=== PATIENT | male | born 1945 | race Caucasian/White ===

== ENCOUNTER 2016-04-01 08:45 | Day surgery (SDC) | payer MEDICARE ==
[2016-04-01] MEDS ORDERED: ALPRAZolam 0.25 MG TAB PO ONE (09:05)
[2016-04-01 09:13] VITALS: RESP 20; TEMP 97.9
[2016-04-01 09:17] LABS: Mean Platelet Volume 8.4
[2016-04-01 09:23] LABS: INR 1.2 (<1.1); Prothrombin Time 11.6 sec (9.0-12.0)
[2016-04-01 09:26] LABS: Glucose,Whole Blood 118 mg/dL (75-99)
--- NOTE | 2016-04-01 11:09 | US ---
Ultrasound-guided transrectal biopsy of the prostate gland. HISTORY: Elevated PSA. Informed consent was obtained and all the patient's questions were answered. Topical Xylocaine gel w as applied to the probe. The prostate gland was localized sonographically and 12 total samples were obtained with 2 samples o btained from each site. An 18-gauge biopsy device was utilized. Sites include right base, left base , right mid gland, left mid gland, right apex and left apex. Samples were sent to pathology further evaluation. The patient was monitored following the biopsy for approximately one hour. At the time of discharge patient's urine was clear and vitals were stable. IMPRESSION: Successful ultrasound guided core biopsy of the prostate gland. Pathology results are pe nding.
[2016-04-01 11:49] VITALS: PULSE 80
[2016-04-01 11:50] VITALS: BP 156/78
== END 2016-04-01 13:32 | disposition home or self-care (01) ==
LOC: RADPROMAIN 08:45
PROVIDERS: ATTEND Family Medicine
DX: R97.20 Elevated prostate specific antigen [PSA] (principal); N42.83 Cyst of prostate
CPT/HCPCS: 36415; 55700; 85049; 85610; 88305

== ENCOUNTER → 2016-10-14 | Outpatient (CLI) | payer MEDICARE ==
--- NOTE | 2016-10-14 10:41 | XR ---
Lumbar spine HISTORY: Pain, R 52 3 views of the lumbar spine No comparisons Is multilevel spondylosis with loss of disc height at the intervertebral levels. Vacuum phenomenon pr esent at the intervertebral levels. Sclerosis present in the posterior elements. There is mild spinal curvature. Lumbar vertebral bodies show preserved height and alignment. Bone mineralization mildly r educed. Atherosclerotic vascular calcifications are present. IMPRESSION: Degenerative disc disease and facet arthropathy.
== END | disposition home or self-care (01) ==
LOC: RADXRMAIN 09:36
PROVIDERS: ATTEND Family Medicine
DX: M51.36 Other intervertebral disc degeneration, lumbar region (principal); M12.88 Other specific arthropathies, not elsewhere classified, other specified site
CPT/HCPCS: 72100

== ENCOUNTER → 2016-11-01 | Outpatient (CLI) | payer MEDICARE ==
[2016-11-01 10:54] LABS: Blood Urea Nitrogen 14 mg/dL (9-20); Non-African American GFR(MDRD) >60 (>60 ml/min/1.73 sqM)
--- NOTE | 2016-11-01 11:41 | CT ---
EXAMINATION TYPE: CT lumbar spine w con DATE OF EXAM: 11/01/2016 COMPARISON: NONE HISTORY: Patient complains of chronic low back pain and bilateral leg numbness when sitting. Contrast: [address] DLP: 416.6 mGycm Automated exposure control for dose reduction was used. CONTRAST: CT scan of the lumbar is performed with IV Contrast, patient injected with 100 mL of Omnipaque 300. Enhanced CT of the lumbar spine was performed. Bone and soft tissue window settings are submitted as well as coronal and sagittal reconstructions. L1-L2: Moderate to severe degenerative disc disease with facet arthropathy. Posterior spondylosis not ed with no canal stenosis. Mild bilateral foraminal encroachment. L2-L3: Severe degenerative disc disease with posterior spondylosis and facet arthropathy. Circumferen tial disc bulging results in mild to moderate effacement of thecal sac. Bilateral foraminal encroachm ent. AP canal stenosis suspected. L3-L4: Severe degenerative disc disease with diffuse disc bulging, facet arthropathy and ligamentum f lavum hypertrophy noted with moderate to severe AP canal stenosis and bilateral foraminal encroachmen t. Ossification of the posterior longitudinal ligament suspected or disc osteophyte complex. L4-L5: Moderate to severe degenerative disc disease with diffuse disc bulging and facet arthropathy. There is mild to moderate canal stenosis and bilateral foraminal encroachment. L5-S1: Vacuum disc and severe degenerative disc disease with disc bulging and hypertrophic change of the facets and ligamentum flavum with moderate to severe bilateral foraminal encroachment and canal s tenosis. IMPRESSION: Multilevel severe degenerative disc disease with disc bulging. Hypertrophic changes result in multile gayle significant canal stenosis and foraminal encroachment. Lucencies along the endplates of the verte bral bodies at multiple levels are likely related to Schmorl's nodes and/or post degenerative. Recomm end follow up MRI with contrast.
== END | disposition home or self-care (01) ==
LOC: RADCTMAIN 10:20
PROVIDERS: ATTEND Family Medicine
DX: M48.06 Spinal stenosis, lumbar region (principal); M51.16 Intervertebral disc disorders with radiculopathy, lumbar region
CPT/HCPCS: 82565; 84520; 72132; 36415; Q9967

== ENCOUNTER → 2017-03-22 | Outpatient (CLI) | payer MEDICARE ==
--- NOTE | 2017-03-22 12:21 | MR ---
EXAMINATION TYPE: MR lumbar spine wo/w con DATE OF EXAM: 03/22/2017 COMPARISON: 11/01/2016 HISTORY: Pain, Stenosis, Mk lower ext tingling and numbness, rt shoulder numbness TECHNIQUE: T1 and T2 axial and sagittal images of the lumbar spine are submitted. Contrast: 9 mL Gadavist FINDINGS: There is no abnormal signal seen within the visualized spinal cord or paraspinal soft tissu es. Multilevel Schmorl's nodes and degenerative disc disease with discogenic marrow changes noted. At T12-L1 there is mild hypertrophic change of the facets. Circumferential disc bulging but no canal stenosis or focal herniation. Neural foramina patent. At L1-2 there is Mild to moderate degenerative disc disease. Degenerative disc disease with diffuse c ircumferential disc bulging and mild bilateral foraminal encroachment. Borderline canal stenosis. At L2-3 there is Moderate to severe degenerative disc disease with broad-based disc protrusion. Disco genic marrow changes are noted with evidence of Schmorl's nodes. There is mild to moderate central st enosis. Hypertrophic change of the facet joints and ligamentum flavum are noted and there is moderate bilateral foraminal encroachment At L3-4 there is severe degenerative disc disease with diffuse disc bulging greater laterally the rig ht. Far lateral broad-based disc protrusion suspected. There is moderate to severe canal stenosis. Th ere is a severe right-sided foraminal encroachment and mild to moderate left foraminal encroachment. Severe facet arthropathy and ligamentum flavum hypertrophy noted. At L4-5 there is moderate degenerative disc disease with diffuse circumferential disc bulging and fac et arthropathy. Mild bilateral foraminal encroachment and moderate degenerative disc disease. Borderl ine central stenosis. At L5-S1 there is degenerative disc disease with diffuse disc bulging and marked facet arthropathy an d ligamentum flavum hypertrophy. Broad-based central disc protrusion results in moderate to severe ca nal stenosis and bilateral severe foraminal encroachment. IMPRESSION: 1. Multilevel moderate to severe degenerative disc disease with multilevel disc bulging or protrusion resulting in multilevel canal stenosis and foraminal encroachment as discussed above. Most marked fi ndings are seen at L3-L4 and L5-S1 as discussed above. EXAMINATION TYPE: MR bullard wo/w con DATE OF EXAM: 03/22/2017 COMPARISON: NONE HISTORY: Pain, Stenosis, Mk lower ext tingling and numbness, rt shoulder numbness TECHNIQUE: T1 sagittal and coronal, T2 sagittal, and gradient echo axial views of the cervical spine are submitted. Contrast: 9 mL Gadavist FINDINGS: The cranial cervical junction is preserved. There is no abnormal signal seen within the sp inal cord or paraspinal soft tissues. At C2-3 there is facet arthropathy and mild degenerative disc disease. No Canal stenosis. At C3-4 there is degenerative disc disease and facet arthropathy with uncovertebral joint hypertrophy resulting in moderate to severe left foraminal encroachment and severe right-sided foraminal encroac hment. There is a right paracentral disc herniation which does result in severe impingement of the ri ght neural foramina and probable contact of the nerve root. No spinal cord contact is seen although t here is moderate effacement of thecal sac. Mild central stenosis. At C4-5 there is degenerative disc disease with facet arthropathy and uncovertebral joint hypertrophy result in moderate bilateral foraminal encroachment. Borderline canal stenosis but no disc herniatio n. At C5-6 there is degenerative disc disease and facet arthropathy. Moderate bilateral foraminal encroa chment and borderline canal stenosis. No focal herniation. At C6-7 there is degenerative disc disease and facet arthropathy greater on the left with mild to mod erate bilateral foraminal encroachment. No canal stenosis or focal herniation At C7-T1 there is no disc herniation or canal stenosis. Neural foramina are patent. IMPRESSION: 1. Multilevel degenerative disc disease with right paracentral and lateral disc herniation C3-C4 res ulting in severe right-sided foraminal encroachment. 2. Hypertrophic changes at multiple levels result in significant bilateral foraminal encroachment and borderline canal stenosis as discussed above.
== END | disposition home or self-care (01) ==
LOC: RADMRIMAIN 09:45
PROVIDERS: ATTEND Neurological Surgery
DX: M48.061 Spinal stenosis, lumbar region without neurogenic claudication (principal); M51.37 Other intervertebral disc degeneration, lumbosacral region; M51.27 Other intervertebral disc displacement, lumbosacral region; M48.02 Spinal stenosis, cervical region; M50.11 Cervical disc disorder with radiculopathy, high cervical region
CPT/HCPCS: 82565; 72156; 72158; 36415; A9581

== ENCOUNTER → 2017-07-25 | Outpatient (CLI) | payer MEDICARE ==
--- NOTE | 2017-07-25 12:05 | XR ---
EXAMINATION TYPE: XR chest 2V DATE OF EXAM: 07/25/2017 COMPARISON: 01/18/2012 TECHNIQUE: PA and lateral views submitted. HISTORY: Preop FINDINGS: The lungs are clear and there is no pneumothorax, pleural effusion, or focal pneumonia. Hypertrophi c and degenerative change of the spine. Postsurgical changes noted. IMPRESSION: 1. No acute process.
== END ==
LOC: RADXRMAIN 11:50
PROVIDERS: ATTEND Neurological Surgery
DX: Z01.818 Encounter for other preprocedural examination (principal); M54.12 Radiculopathy, cervical region
CPT/HCPCS: 71046

== ENCOUNTER → 2018-01-11 | Outpatient (CLI) | payer MEDICARE ==
--- NOTE | 2018-01-11 14:21 | CT ---
EXAMINATION TYPE: CT sinus wo con DATE OF EXAM: 01/11/2018 COMPARISON: HISTORY: Patient complains of chronic sinus pain, pressure, and drainage. CT DLP: 605 mGycm. Automated Exposure Control for Dose Reduction was Utilized. TECHNIQUE: CT scan of the sinuses is performed without contrast, axial images are obtained, coronal r eformatted images are also reviewed. FINDINGS: The paranasal sinuses including the frontal, ethmoid, sphenoid, and maxillary sinuses bila terally are remarkable for mucosal thickening present within the maxillary sinuses and ethmoid air ce lls, inflammatory change also present in the frontal ethmoidal region, small mucus retention cyst cou ld be present. The ostiomeatal complex is patent bilaterally on the coronal images. Yasmine bullosa a re present bilaterally. Visualized portion of mastoid air cells show no abnormal opacification. The globes are intact bilate rally. IMPRESSION: Sinus disease as described.
== END | disposition home or self-care (01) ==
LOC: RADCTMAIN 12:58
PROVIDERS: ATTEND Family Medicine
DX: J34.89 Other specified disorders of nose and nasal sinuses (principal); J32.9 Chronic sinusitis, unspecified
CPT/HCPCS: 70486

== ENCOUNTER → 2018-11-30 | Outpatient (CLI) | payer MEDICARE ==
--- NOTE | 2018-12-02 12:59 | MR ---
EXAMINATION TYPE: MR Prostate wo/w con DATE OF EXAM: 11/30/2018 COMPARISON: Outside prostate ultrasound October 06, 2018 INDICATION: Prostate nodule seen on US PSA: 5.29 ng/ml on September 04, 2018 Recent Biopsy and Date: n/a Pathology Report (If Applicable): n/a no known biopsy. TECHNIQUE: Examination was performed using a 3T MRI without an endorectal coil. Multiparametric imaging was perf ormed with T2 multiplanar sequences, axial diffusion weighted imaging and dynamic contrast enhanced i maging, utilizing 10 mL intravenous Gadavist gadolinium contrast. FINDINGS: Peripheral zone show some areas of indistinct hyperintensity on ADC mapping near the base slightly mo re prominent to the right of midline. No areas of mild to moderate hypointensity or increased signal on diffusion-weighted images identified in the peripheral zone. Transitional zone is enlarged and heterogeneous with circumscribed areas of hypointensity. No areas w ith noncircumscribed or obscured margins are identified. There is no clinically significant cancer identified. PROSTATE VOLUME: 5.4 cm SI x 4.3 cm AP x 4.7 cm LR Vol= 57.14 cc PSA DENSITY: 6.81 ng/ml/cc Overall enlarged prostate gland. Capsule is maintained. The seminal vesicles are felt within normal l imits. No adjacent or suspicious adenopathy. Urinary bladder folds within normal limits without suspicious wall thickening or trabeculation. Wall thickness upper limits of normal. No concerning pelvic fluid collection. No bowel dilatation. Visualized osseous structures are intact. IMPRESSION: A focus of clinically significant cancer is not identified. Highest Assessment Category: 2 MRI Stage: T0 N0 M0 based on review of pelvic images. False negative rates for MRI range from 5-20% depending on risk profile. Assessment Categories: 1 ? Very low (clinically significant cancer is highly unlikely to be present) 2 ? Low (clinically significant cancer is unlikely to be present) 3 ? Intermediate (the presence of clinically significant cancer is equivocal) 4 ? High (clinically significant cancer is likely to be present) 5 ? Very high (clinically significant cancer is highly likely to be present)
== END | disposition home or self-care (01) ==
LOC: RADMRIMAIN 11:28
PROVIDERS: ATTEND Family Medicine
DX: N40.2 Nodular prostate without lower urinary tract symptoms (principal)
CPT/HCPCS: 72197; A9585

== ENCOUNTER → 2019-10-09 | Outpatient (CLI) | payer MEDICARE ==
--- NOTE | 2019-10-10 03:48 | MR ---
EXAMINATION TYPE: MR knee LT wo con DATE OF EXAM: 10/09/2019 COMPARISON: None HISTORY: Knee pain inside part of knee. Foot was stuck, turned and pulled and felt a pop on the insid e of knee Multiplanar multiecho imaging of the left knee was performed with no contrast. The anterior and posterior cruciate ligaments are intact. There is a small knee joint effusion. There is extensive increased signal in the posterior horn medial meniscus extending to the inferior surfac e and complete horizontal tear to the posterior surface. There is some increased signal within the la teral meniscus without extension to the articular surface. There is moderate narrowing of the medial joint space. There is medial displacement of the medial meniscus. There is complex fluid displacing t he medial collateral ligament medially. There is some mild patchy increased signal on both sides of t he medial joint space. There is 12 mm degenerative cyst at the base of the tibial spines. I see no fr acture line. There is some spurring of the medial femoral and tibial condyles. There is subcutaneous edema around the knee. The patella is intact. IMPRESSION: Complex extensive tear posterior horn medial meniscus. Mild intrasubstance tear of the lateral menisc us. Moderately severe osteoarthritic narrowing of medial joint space. Complex knee joint effusion wit h some debris along the medial aspect of the proximal tibia. Subcutaneous edema around the knee. No fracture seen. Subchondral degenerative cyst formation in the proximal tibia and medial femoral co ndyle.
== END | disposition home or self-care (01) ==
LOC: RADMRIMAIN 09:35
PROVIDERS: ATTEND Family Medicine
DX: S83.282A Other tear of lateral meniscus, current injury, left knee, initial encounter (principal); S83.242A Other tear of medial meniscus, current injury, left knee, initial encounter; M17.12 Unilateral primary osteoarthritis, left knee; M25.462 Effusion, left knee; M85.662 Other cyst of bone, left lower leg

== ENCOUNTER → 2019-11-15 | Outpatient (CLI) | payer MEDICARE | END | disposition home or self-care (01) | LOC: LABPAT 10:38 | PROVIDERS: ATTEND Orthopaedic Surgery | DX: Z01.812 Encounter for preprocedural laboratory examination (principal) | CPT/HCPCS: 87070 ==

== ENCOUNTER 2019-12-10 08:16 | Day surgery (SDC) | payer MEDICARE ==
[2019-12-06 12:10] VITALS: BMI 28.5
--- NOTE | 2019-12-09 10:03 | HP ---
HISTORY AND PHYSICAL REASON FOR ADMISSION: Surgery is 12/10/2019 Akhil Grewal is a 74-year-old patient seen with progressive symptomatic left knee osteoarthritis. We discussed options for treatment. He elected to proceed with left total knee arthroplasty. Consent regarding the procedure was obtained. Medical clearance was provided by Dr. Jose Zavala. PAST MEDICAL HISTORY: Hypertension, hyperlipidemia, [id number] diabetes, atrial fibrillation. PAST SURGICAL HISTORY: Hand surgery, knee surgery, heart valve replacement. DAILY MEDICATIONS: Coumadin, metformin, lisinopril, glipizide, furosemide, atorvastatin, atenolol. ALLERGIES: PENICILLIN, SULFA. SOCIAL HISTORY: He denies tobacco use. PHYSICAL EXAMINATION: Evaluation of the left knee: Range of motion is -3 to 115. There is a mild effusion. Tenderness medial joint line. Full crepitus along the medial patellofemoral compartments with range of motion. Pain with patellofemoral compression. Ligaments stable. Hip rotation without pain. Distal neurovascular exam is intact. RADIOGRAPHS: Radiographs of the left knee reveal severe osteoarthritic changes. IMPRESSION: 1. Left knee osteoarthritis. 2. Hypertension. 3. Hyperlipidemia. 4. Xde-xezowyn-nupcbdkxq diabetes. 5. Atrial fibrillation. PLAN: Left total knee arthroplasty. Surgery scheduled for 12/10/2019. MMODL / IJN: [id number] /
[~2019-12-10 08:16] MED LIST: ACETAMINOPHEN TAB 500 MG TAB PO ONE; DEXAMETHASONE SOD PHOSPHATE 10 MG/ML 1 ML VIAL IV ONE; HYDROmorphone 0.5 MG/0.5 ML SYRINGE IVP PRN; LACTATED RINGERS 1,000 ML IV SCH; MELOXICAM 7.5 MG TAB PO ONE; MIDAZOLAM 2 MG/2 ML VIAL IV PRN; ONDANSETRON 4 MG/2 ML VIAL IVP ONE; ROPIVACAINE 246.25 MG, EPINEPHrine 0.5 MG, KETOROLAC 30 MG, cloNIDine HCL/PF 80 MCG, WA... MISCELLANE ONE; SCOPOLAMINE 1.5MG/72HR PATCH TRANSDERM ONE; TRANEXAMIC ACID 1,000 MG in SODIUM CHLORIDE 0.9% 100 ML IVPB ONE; fentaNYL (PF) 50 MCG/ML 2 ML AMP IVP PRN
[2019-12-10 09:02] LABS: Glucose,Whole Blood 138 mg/dL (75-99)
[2019-12-10] MEDS ORDERED: fentaNYL (PF) 50 MCG/ML 2 ML AMP IV ONE (09:35)
[2019-12-10] MEDS ORDERED: PROPOFOL 10 MG/ML 20 ML VIAL IV ONE (09:52)
[2019-12-10] MEDS ORDERED: SODIUM CHLORIDE 0.9% 100 ML BAG ONE (09:52)
[2019-12-10] MEDS ORDERED: PHENYLEPHRINE-0.9% NACL SYG 1 MG/10 ML SYRINGE ONE (09:52)
[2019-12-10] MEDS ORDERED: TRANEXAMIC ACID 1,000 MG/10 ML VIAL ONE (09:52)
[2019-12-10] MEDS ORDERED: MIDAZOLAM 2 MG/2 ML VIAL ONE (09:52)
[2019-12-10] MEDS ORDERED: fentaNYL (PF) 50 MCG/ML 2 ML AMP ONE (09:52)
[2019-12-10] MEDS ORDERED: ROPIVACAINE 0.2%-NS ON-Q PUMP 1,090 MG, EMPTY PAIN BALL 1 EACH MISCELLANE PRN (09:53)
--- NOTE | 2019-12-10 09:55 | P.ANPRN ---
Procedure Note - Anesthesia - Nerve Block Performed Left Adductor Canal Infusion Time Out Performed: Yes (934) Date of Procedure: 12/10/19 Procedure Start Time: 09:35 Procedure Stop Time: 09:39 Location of Patient: PreOp Indication: Acute Post-Operative Pain, Requested by Surgeon Specifically requested for management of pain by DrJuan: Adan Trejo Sedation Type: Sedate with meaningful contact maintained Preparation: Sterile Prep Position: Supine Catheter Depth at Skin (cm): 8 Catheter: Indwelling Needle Types: Pajunk Needle Gauge: 21 Ultrasound used to visualize needle placement: Yes Ultrasound used to observe medication spread: Yes Injectate: 0.5% Ropivacaine (see comment for volume) (20cc) Blood Aspirated: No Pain Paresthesia on Injection Noted: No Resistance on Injection: Normal Image Stored and Saved: Yes Events: Uneventful and Well Tolerated
[2019-12-10] MEDS ORDERED: ONDANSETRON 4 MG/2 ML VIAL IVP PRN (11:46)
[2019-12-10] MEDS ORDERED: HYDROcodone/APAP 5-325MG 1 EACH TAB PO PRN ×2 (11:46)
[2019-12-10] MEDS ORDERED: HYDROmorphone 0.5 MG/0.5 ML SYRINGE IVP PRN ×3 (11:46)
[2019-12-10] MEDS ORDERED: NALOXONE 0.4 MG/ML 1 ML VIAL IV PRN (11:46)
--- NOTE | 2019-12-10 11:46 | P.OP ---
Date of Procedure: 12/10/19 Preoperative Diagnosis: Left knee osteoarthritis Postoperative Diagnosis: Left knee osteoarthritis Procedure(s) Performed: Left total knee arthroplasty Implants: 1. Depuy attune size 7 left cruciate retaining cemented femur 2. Depuy attune size 8 fixed bearing cemented tibial baseplate 3. Depuy attune size 7 fixed bearing cruciate retaining 6 mm polyethylene tibial insert 4. Depuy attune 41 mm all polyethylene cemented patella Anesthesia: regional (Adductor canal catheter), local, spinal Surgeon: Adan Trejo [employer] [facility]: Syed Garcia Estimated Blood Loss (ml): 35 Pathology: other (Bone) Condition: stable Disposition: PACU Indications for Procedure: 74-year-old patient seen with symptomatic left knee osteoarthritis. After treatment options were discussed, he elected to proceed with total knee arthropl asty. Operative Findings: See description of procedure Description of Procedure: Patient was taken to the operative suite after having an adductor canal catheter placed by the department of anesthesia. Patient underwent a spinal anesthetic by the department of anesthesia. Patient was given preoperative IV intake antibiotics and TXA. A well-padded tourniquet was placed about the left lower extremity. The lower extremity was then prepped and draped in the normal sterile orthopedic fashion. The extremity was elevated, a tourniquet was insuf flated to 300. A standard anterior incision was made sharply through skin. Dissection was taken down through the subcutaneous soft tissues down to the extensor mechanism. A medial arthrotomy was performed, patella was everted and knee was flexed. There was advanced osteoarthritis noted. I introduced my distal intramedullary femoral drill. I then introduced the distal femoral cutting jig. Artur YUSUF secured the cutting jig with 2 pins. I held retractors in position while Artur YUSUF performed the distal femoral resection through the guide area we now removed her distal femoral cutting guide. We now placed our 4-in-1 femoral cutting block and positioned and it was secured with 2 pins by Artur YUSUF while I held the block in position. The distal femoral finishing was now completed. A proximal tibial cutting guide was positioned. I held the guide in the appropriate position with both hands well Artur YUSUF inserted stabilizing pins into the guide. Proximal tibial cut was made. We now placed a trial femoral component into position, along with an appropriate size tibial tray and insert. We now took the knee through range of motion and had full extension good flexion and good overall soft tissue balance noted. The patella was everted and stabilized with 2 towel clips held by Artur YUSUF while I performed a flush with patellar quad tendon utilizing a fresh sawblade. We templated the patella, appropriate drill holes were made. An appropriate trial patella was positioned, knee was taken through full range of motion with the patella tracking very nicely. The trial patella was removed. Drill holes were made through the femoral component. All trial components were removed after marking off the appropriate rotation of the tibia. Retractors were now positioned along the proximal tibia. An appropriate keel punch was made with the appropriate size tibial guide by myself on Artur YUSUF assisted by holding retractors. At this point appropriate size implants were chosen and opened. The joint was irrigated copiously with pulse lavage mechanical irrigation. The posterior capsule was infiltrated with local analgesic. The wound was irrigated with pulse lavage mechanical irrigation. We mixed antibiotic methylmethacrylate. We placed the knee into flexion. We placed multiple retractors assisted by Artur YUSUF to expose the proximal tibia. Once the methyl methacrylate was ready, the tibial component was cemented into place removing any excess methylmethacrylate form by both myself and Artur YUSUF. The femoral component was cemented into place removing the removing any excess methylmethacrylate performed by both myself and Artur YUSUF. We then inserted the appropriate size polyethylene tibial insert. We made sure that it was locked into position. We took the knee into full extension, and then back in a flexion making sure we had removed any excess methylmethacrylate. The patellar component was then cemented down and secured with clamp. Excess methylmethacrylate removed. We kept the knee in full extension, patellar clamp in position until methylmethacrylate had hardened. Once it had hardened the patellar clamp was removed. The knee was taken through full range of motion. The patella tracked nicely. There was good soft tissue balancing. The tourniquet was now released. Additional hemostasis was achieved via electrocautery. A second gram of TXA was given. The wound again was irrigated with pulse lavage mechanical irrigation. The superficial soft tissues were infiltrated local analgesic. The extensor mechanism was repaired with Vicryl. We checked the repair with range of motion and it was stable. The subcutaneous soft tissues were repaired with Vicryl in layers. The skin was approximated with pernio/Dermabond. Sterile dressings were applied followed by loose web roll and James bandage. The patient was transferred to a bed, and taken to recovery in stable and satisfactory condition. Artur YUSUF assisted with this complex procedure.
[2019-12-10] MEDS ORDERED: LACTATED RINGERS 1,000 ML IV ONE (12:07)
--- NOTE | 2019-12-10 12:30 | XR ---
EXAMINATION TYPE: XR knee limited LT DATE OF EXAM: 12/10/2019 COMPARISON: NONE TECHNIQUE: Two views submitted HISTORY: Post op FINDINGS: There is a prosthetic knee in near anatomic alignment. There is soft tissue edema and emphysema. Va scular calcifications noted. IMPRESSION: 1. Postoperative change. Appears in near-anatomic alignment
[2019-12-10 12:34] LABS: Glucose,Whole Blood 167 mg/dL (75-99)
[2019-12-10] MEDS: LACTATED RINGERS 1,000 ML IV SCH (15:37)
[2019-12-10 16:42] LABS: Glucose,Whole Blood 363 mg/dL (75-99)
[2019-12-10] MEDS: CLINDAMYCIN 900 MG in DEXTROSE 5% IN WATER 50 ML IVPB SCH ×2 (17:57)
[2019-12-10] MEDS: INSULIN ASPART (NovoLOG) 100 UNIT/ML VIAL SQ SCH ×2 (17:58→20:44)
[2019-12-10] MEDS ORDERED: WARFARIN 7.5 MG TAB PO ONE (18:00)
[2019-12-10 20:38] LABS: Glucose,Whole Blood 283 mg/dL (75-99)
[2019-12-10] MEDS: glipiZIDE 5 MG TAB PO SCH (20:43)
[2019-12-10] MEDS: ENOXAPARIN 30 MG/0.3 ML SYRINGE SQ SCH (20:44)
[2019-12-10] MEDS: atenoloL 50 MG TAB PO SCH (20:44)
[2019-12-10] MEDS ORDERED: SENNOSIDES-DOCUSATE SODIUM 1 EACH TAB PO SCH (21:00)
[2019-12-11] MEDS: LACTATED RINGERS 1,000 ML IV SCH ×2 (01:50→12:08)
[2019-12-11] MEDS: CLINDAMYCIN 900 MG in DEXTROSE 5% IN WATER 50 ML IVPB SCH ×2 (01:50)
--- NOTE | 2019-12-11 06:32 | P.PN ---
Progress Note - Text Progress Note Date: 12/11/19 (045) Anesthesiology Postop day 1 status post total knee arthroplasty with adductor canal catheter. Patient doing well. VAS 0 out of 10. Gross strength intact in lower extremity. Afebrile. Denies alterations in sensorium. Catheter site intact. Heart regular rate Lungs nonlabored Abdomen nondistended Assessment: Postop day 1 status post total knee arthroplasty with adductor canal catheter Plan: All questions answered. Maintain catheter 2 more days with patient removal at home. Instructions were given at discharge.
[2019-12-11 06:58] LABS: Glucose,Whole Blood 150 mg/dL (75-99)
[2019-12-11 07:22] VITALS: BP 115/68; PULSE 78; RESP 20; TEMP 97.8
[2019-12-11 07:23] LABS: Basophils % (A) 0 %; Eosinophils # (A) 0.1 k/uL (0-0.7); Eosinophils % (A) 1 %; HCT 35.2 % (39.0-53.0); HGB 11.8 gm/dL (13.0-17.5); Lymphocytes # (A) 1.4 k/uL (1.0-4.8); Lymphocytes % (A) 12 %; MCH 30.1 pg (25.0-35.0); MCHC 33.5 g/dL (31.0-37.0); MCV 89.8 fL (80.0-100.0); Mean Platelet Volume 8.8; Monocytes # (A) 0.8 k/uL (0-1.0); Monocytes % (A) 6 %; Neutrophils # (A) 9.6 k/uL (1.3-7.7); Neutrophils % (A) 80 %; Platelet Count 137 k/uL (150-450); RBC 3.92 m/uL (4.30-5.90); RDW 13.3 % (11.5-15.5)
[2019-12-11] MEDS: INSULIN ASPART (NovoLOG) 100 UNIT/ML VIAL SQ SCH ×2 (07:51→12:08)
[2019-12-11] MEDS: atenoloL 50 MG TAB PO SCH (07:52)
[2019-12-11] MEDS: glipiZIDE 5 MG TAB PO SCH (07:52)
[2019-12-11] MEDS: ENOXAPARIN 30 MG/0.3 ML SYRINGE SQ SCH (07:53)
--- NOTE | 2019-12-11 08:47 | CONS ---
CONSULTATION This is a 74-year-old white male status post left knee replacement medical management consult. The patient is having no chest pain shortness of breath. Pain is decent. PAST MEDICAL HISTORY: Hypertension, dyslipidemia, lql-oxqrdbb-wqhdencnn diabetes mellitus, atrial fibrillation. SURGICAL HISTORY: Knee surgery, hand surgery, heart valve replacement, DM. MEDICINES: Coumadin and metformin, lisinopril, glipizide, furosemide, atorvastatin, Tylenol. ALLERGIES: PENICILLIN, SHELLFISH. . PHYSICAL EXAM: Cardiovascular S1, S2. LUNGS: Clear. GI soft. Negative Homans. Bandage on the left knee. Psych fair mood and affect. NEUROLOGIC: Alert and oriented x3. ASSESSMENT: Assessment severe osteoarthritis including left knee, status post knee replacement, hypertension, dyslipidemia, diabetes atrial fibrillation. Continue home medicines. Medically stable. Postop pain control is good. Accu-Chek protocol. His sugars have been running high post knee replacement, which is normal. MMODL / IJN: [id number] /
[2019-12-11] MEDS ORDERED: TAMSULOSIN 0.4 MG CAP.ER.24H PO SCH (09:00)
[2019-12-11] MEDS ORDERED: ATORVASTATIN 40 MG TAB PO SCH (09:00)
[2019-12-11] MEDS ORDERED: FUROSEMIDE 40 MG TAB PO SCH (09:00)
[2019-12-11] MEDS ORDERED: lisinopriL 5 MG TAB PO SCH (09:00)
[2019-12-11] MEDS ORDERED: FERROUS SULFATE 325 MG TAB PO SCH (09:00)
[2019-12-11 11:13] LABS: INR 0.99 (0.90-1.11); Prothrombin Time 10.6 sec (9.9-11.9)
[2019-12-11 11:42] LABS: Glucose,Whole Blood 127 mg/dL (75-99)
--- NOTE | 2019-12-11 12:10 | P.PN ---
Subjective Progress Note Date: 12/11/19 Principal diagnosis: Status post left total knee arthroplasty Patient is examined today at bedside, he is resting comfortably. He denies any chest pain or shortness of breath. His pain is well-controlled. He did well with therapy. Objective - Vital Signs Vital signs: Vital Signs Temp 97.8 F 12/11/19 07:00 Pulse 78 12/11/19 07:00 Resp 20 12/11/19 07:00 BP 115/68 12/11/19 07:00 Pulse Ox 96 12/11/19 07:00 Intake & Output 12/10/19 12/11/19 12/11/19 18:59 06:59 18:59 Intake Total 1250 Output Total 835 1100 Balance 415 -1100 Weight 92.09 kg Intake: IV 1250 Output: Urine 800 1100 Straight 800 Estimated Blood Loss 35 Other: Voiding Method Urinal # Voids 1 - Exam Left lower extremity: Incision is clean, dry, and intact. The foam dressing is in good condition. There is minimal soft tissue swelling and ecchymosis surrounding the medial and lateral aspects of the incision. Calf is soft, no tenderness with palpation. Plantar flexion, dorsiflexion, EHL, FHL are intact. Sensory exam to light touch throughout the extremity is intact, dorsal pedis pulses 2+. - Labs CBC & Chem 7: 12/11/19 06:50 Labs: Abnormal Lab Results - Last 24 Hours (Table) 12/10/19 12/10/19 12/10/19 Range/Units 12:31 16:40 20:37 WBC (3.8-10.6) k/uL RBC (4.30-5.90) m/uL Hgb (13.0-17.5) gm/dL Hct (39.0-53.0) % Plt Count (150-450) k/uL Neutrophils # (1.3-7.7) k/uL POC Glucose (mg/dL) 167 H 363 H 283 H (75-99) mg/dL 12/11/19 12/11/19 12/11/19 Range/Units 06:50 06:56 11:39 WBC 12.0 H (3.8-10.6) k/uL RBC 3.92 L (4.30-5.90) m/uL Hgb 11.8 L (13.0-17.5) gm/dL Hct 35.2 L (39.0-53.0) % Plt Count 137 L (150-450) k/uL Neutrophils # 9.6 H (1.3-7.7) k/uL POC Glucose (mg/dL) 150 H 127 H (75-99) mg/dL Assessment and Plan Assessment: Status post left total knee arthroplasty Plan: Pain control, plan for discharge home on oral medication GI and DVT prophylaxis, patient will resume his normal dose of Coumadin. He will be sent with one week supply of Lovenox, INR draw for this Tuesday will also be provided. Prescription Wound care instructions discussed Home therapy and nursing after discharge Icing and elevating techniques discussed Medical recommendations Plan for discharge home today Time with Patient: Less than 30
--- NOTE | 2019-12-11 12:13 | P.DS ---
Providers Date of admission: 12/10/2019 Expected date of discharge: 12/11/19 Attending physician: Adan Trejo Consults: 12/10/19 11:46 Consult Physician Routine Consulting Provider: Jose Zavala Reason/Comments: Medical management Do you want consulting provider notified?: Yes Primary care physician: Jose Zavala [facility] Course: Date of admission: 12/10/2019 Date of discharge: 12/11/2019 Admission diagnosis: Status post left total knee arthroplasty Discharge diagnosis: Same Attending physician: Dr. Trejo Surgical procedures: Left total knee arthroplasty Brief history: Patient is a 74-year-old male with a history of progressive primary left knee osteoarthritis. At this point patient has failed conservative treatment measures and has opted to proceed with a elective left total knee arthroplasty. Hospital course: Details of patient's surgery can be found in operative report. Patient tolerated the procedure well and was subsequently transported to orthopedic floor. Patient's orthopeidc and medical care was provided daily. Patient had daily laboratory tests performed for evaluation of overall blood counts . Patient had daily physical therapy to include strengthening range of motion as well as education with walker ambulation. Patient was treated with Lovenox and Coumadin for their postoperative DVT prophylaxis during their inpatient stay. Patient was noted to have a relatively uneventful postoperative course. Patient reported satisfactory pain control with oral pain medications by postoperative day . Patient showed satisfactory progress with physical therapy. Patient moved steadily through the program and had no difficulty meeting the goals by postoperative day 1. Given patient's otherwise satisfactory course and having met physical therapy goals, plan is to discharge patient home on postoperative day 1. Discharge condition/disposition: Patient will be discharged home in stable condition. Discharge medications: Instructions are given on resumption of patient's normal daily medications per primary care recommendation, in addition patient will be prescribed [place] 5 mg/325 mg, Colace 100 mg, Lovenox 40 mg. Discharge instructions: 1. Wound care and infection precautions, keep incision dry and covered while showering, no lotions, creams, moisturizers. No soaking, tubs, pools, hottubs. Do not scrub over the incision. 2. Weight-bear as tolerated with walker / cane until follow-up. 3. Ice and elevate when necessary. Do not exceed 20 minutes per hour with ice pack. 4. Utilize compression sleeve until seen at first follow up appointment. 5. Visiting nursing care. 6. Home physical therapy including home CPM. 7. Pain meds and anticoagulants per prescription. 8. Pain medication has potential to cause constipation. Increase oral fluid and fiber intake. Contact primary care provider if you have not had a bowel movement within 48 hours after discharge 9. No anti-inflammatory medication until discussed at first post operative visit, this including Motrin, Aleve, Mobic, Diclofenac 10. Follow up in office at 2 weeks postop with Artur Garcia PA-C 11. Follow up with your primary care doctor 7-10 days after discharge. 12. Contact [facility] with any questions, . Procedures: Left total knee arthroplasty Patient Condition at Discharge: Good Plan - Discharge Summary Discharge Rx Participant: No New Discharge Prescriptions: New Docusate [Colace] 100 mg PO DAILY #30 capsule Enoxaparin [Lovenox] 40 mg SQ DAILY #7 syringe Hydrocodone/Acetaminophen [[place] 5-325] 1 - 2 each PO Q6HR PRN #56 tab PRN Reason: Pain No Action Atorvastatin [Lipitor] 40 mg PO DAILY Niacin 500 mg PO DAILY Ferrous Sulfate [Feosol] 325 mg PO DAILY atenoloL [Atenolol] 50 mg PO BID lisinopriL [Lisinopril] 5 mg PO DAILY Furosemide [Lasix] 40 mg PO DAILY Warfarin [Coumadin] 7.5 mg PO DIRECTED Warfarin [Coumadin] 5 mg PO DIRECTED glipiZIDE [Glucotrol] 5 mg PO BID metFORMIN HCL 1,000 mg PO BID Col-Rite 100 mg PO HS Tamsulosin [Flomax] 0.4 mg PO DAILY Semaglutide [Ozempic] 0.25 mg SQ MO Discharge Medication List Atorvastatin [Lipitor] 40 mg PO DAILY 03/26/16 [History] Ferrous Sulfate [Feosol] 325 mg PO DAILY 03/26/16 [History] Furosemide [Lasix] 40 mg PO DAILY 03/26/16 [History] Niacin 500 mg PO DAILY 03/26/16 [History] Warfarin [Coumadin] 5 mg PO DIRECTED 03/26/16 [History] Warfarin [Coumadin] 7.5 mg PO DIRECTED 03/26/16 [History] atenoloL [Atenolol] 50 mg PO BID 03/26/16 [History] glipiZIDE [Glucotrol] 5 mg PO BID 03/26/16 [History] lisinopriL [Lisinopril] 5 mg PO DAILY 03/26/16 [History] metFORMIN HCL 1,000 mg PO BID 03/26/16 [History] Col-Rite 100 mg PO HS 12/06/19 [History] Semaglutide [Ozempic] 0.25 mg SQ MO 12/06/19 [History] Tamsulosin [Flomax] 0.4 mg PO DAILY 12/06/19 [History] Docusate [Colace] 100 mg PO DAILY #30 capsule 12/11/19 [Rx] Enoxaparin [Lovenox] 40 mg SQ DAILY #7 syringe 12/11/19 [Rx] Hydrocodone/Acetaminophen [[place] 5-325] 1 - 2 each PO Q6HR PRN #56 tab 12/11/19 [Rx] Follow up Appointment(s)/Referral(s): [facility], [NON-STAFF] - ([facility] care will call you and set up your first visit for about 24 hours after discharge from the hospital. ) Syed Garcia PAC [PHYSICIAN REEL CUTTER] - 12/26/19 2:10 pm Ambulatory/Diagnostic Orders: Prothrombin Time INR [LAB.AMB] Time Frame: 12/14/19, Location: None Selected Activity/Diet/Wound Care/Special Instructions: Orthopedic Discharge Instructions: 1. Wound care and infection precautions, keep incision dry and covered while showering no lotions, creams, moisturizers. No soaking, pools, hot tubs. Do not scrub over incision. Okay to remove foam dressing on 12/19/2019 2. Weight-bear as tolerated with walker / cane until follow-up. 3. Ice and elevate when necessary. Do not exceed 20 minutes per hour with ice pack. 4. Utilize compression sleeve until seen at first follow up appointment. 5. Pain meds and anticoagulants per prescription. 6. Pain medication has potential to cause constipation. Increase oral fluid and fiber intake. Contact primary care provider if you have not had a bowel movement within 48 hours after discharge. 7. No anti-inflammatory medication until discussed at first post operative visit, this including Motrin, Aleve, Mobic, Diclofenac 8. Follow up in office at 2 weeks postop with Artur Garcia PA-C 9. Follow up with your primary care doctor 7-10 days after discharge. 10. Contact [facility] with any questions, [phone]. 11. Please call [facility] once home to arrange delivery of Continuous Passive Motion (CPM) machine: [phone]. Discharge Disposition: HOME WITH HOME HEALTH SERVICES
[2019-12-11] MEDS ORDERED: WARFARIN 7.5 MG TAB PO ONE (18:00)
== END 2019-12-11 14:09 | disposition home health service (06) ==
LOC: OR 08:16 → 4SSUR 12:05 → OR 12-11 14:09
PROVIDERS: ATTEND Orthopaedic Surgery
DX: M17.12 Unilateral primary osteoarthritis, left knee (principal); I10 Essential (primary) hypertension; C61 Malignant neoplasm of prostate; I48.91 Unspecified atrial fibrillation; E11.9 Type 2 diabetes mellitus without complications; N40.0 Benign prostatic hyperplasia without lower urinary tract symptoms; E78.5 Hyperlipidemia, unspecified; Z95.2 Presence of prosthetic heart valve; Z88.0 Allergy status to penicillin; Z88.2 Allergy status to sulfonamides; Z79.84 Long term (current) use of oral hypoglycemic drugs; Z79.01 Long term (current) use of anticoagulants; Z79.899 Other long term (current) drug therapy; Z91.013 Allergy to seafood
CPT/HCPCS: 97110; 97161; 64448; 76942; 85025; 85610 ×2; 85730; 88300; 73560; 27447; C1776; C1713; J2250; J0171; J1100; J0690; J2405; J3010; J1885; J1650 ×2; J2795 ×2; J2370; J2704; J0735

== ENCOUNTER → 2020-05-14 | Outpatient (CLI) | payer MEDICARE ==
--- NOTE | 2020-05-15 04:50 | MR ---
EXAMINATION TYPE: MR lumbar spine wo con DATE OF EXAM: 05/14/2020 COMPARISON: 03/22/2017 HISTORY: 75-year-old male M54.5, Back and left leg pain TECHNIQUE: Multiplanar, multisequence images of the lumbar spine were acquired. FINDINGS: There is advanced multilevel degenerative disc disease with desiccated, narrowed, and bulging discs. Posterior annular fissure notably at L3-L4. There is straightening of the normal lumbar lordosis but with overall preserved alignment. Vertebral body heights are preserved. Multilevel ligamentum flavum thickening and hypertrophic facet arthropathy. Heterogeneous marrow sign al is unchanged from prior and likely reflects a combination of Modic type II fatty endplate change a nd red marrow hyperplasia. Conus medullaris is seen at the L1-L2 level. No prevertebral or paravertebral soft tissue abnormality. At T12-L1, there is disc bulge impressing on the ventral thecal sac without significant canal stenosi s. There is mild right neuroforaminal stenosis. At L1-L2, diffuse disc bulge with ligamentum flavum thickening. There is abutment of both the dorsal and ventral upper cauda equina nerve roots with mild overall spinal canal stenosis. Moderate left gre ater than right neuroforaminal stenosis. At L2-L3, disc osteophyte complex with ligamentum flavum thickening and facet arthropathy. There is a moderate spinal canal stenosis at this level with mass effect onto both the dorsal and ventral aspec t of the cauda equina nerve roots and near complete effacement of the CSF signal, slightly worsened f rom prior. Moderate right and mild left neuroforaminal stenosis. At L3-L4, disc osteophyte complex with posterior annular fissure, ligamentum flavum thickening, and f acet arthropathy. Focal severe spinal canal stenosis with effacement of the CSF signal. Cauda equina nerve roots below this level are redundant and distorted. Moderate to severe right and moderate left neuroforaminal stenosis. At L4-L5, ligamentum flavum thickening with facet arthropathy, and disc osteophyte complex. There is impression on the ventral thecal sac but no significant spinal canal stenosis. Moderate left and mild -to-moderate right neuroforaminal stenosis. At L5-S1, ligamentum flavum thickening with disc bulge. There is circumferential attenuation of the t hecal sac with mild overall canal narrowing. Moderate to severe bilateral neuroforaminal stenosis. IMPRESSION: 1. Advanced multilevel degenerative disc disease along with multilevel ligamentum flavum thickening a nd hypertrophic facet arthropathy. Straightening of the normal lumbar lordosis without malalignment. 2. Posterior annular fissure at L3-L4 where there is also redemonstrated severe focal spinal canal st enosis. Moderate to severe right and moderate left neural foraminal stenosis here. 3. At L2-L3, a moderate focal spinal canal stenosis is slightly increased from prior. Moderate right neuroforaminal stenosis. 4. Mild overall spinal canal stenosis at L1-L2 and L5-S1. 5. Additional variable neuroforaminal stenoses as outlined above, moderate to severe on both sides at L5-S1.
== END ==
LOC: RADMRIMAIN 10:53
PROVIDERS: ATTEND Orthopaedic Surgery
DX: M48.07 Spinal stenosis, lumbosacral region (principal); M51.27 Other intervertebral disc displacement, lumbosacral region; M99.73 Connective tissue and disc stenosis of intervertebral foramina of lumbar region
CPT/HCPCS: 72148

== ENCOUNTER → 2020-06-05 | Outpatient (CLI) | payer MEDICARE ==
--- NOTE | 2020-06-05 16:48 | CT ---
EXAMINATION TYPE: CT lumbar spine wo con DATE OF EXAM: 06/05/2020 COMPARISON: 11/01/2016 HISTORY: Lumbago CT DLP: 997.2 mGycm CONTRAST: None TECHNIQUE: CT of the lumbar spine is performed on a spiral scan at 3 mm thick sections. Reconstructed images are performed in the coronal and sagittal planes. FINDINGS: T12-L1: No focal disc herniation or significant disc bulge is evident. No spinal canal stenosis or neural foraminal stenosis is present. L1-L2: No focal disc herniation or significant disc bulge is evident. No spinal canal stenosis or n eural foraminal stenosis is present L2-L3: Broad-based disc bulge is moderate anterior thecal sac flattening. No AP spinal canal stenosis is present. There is moderate to severe bilateral foraminal narrowing. L3-L4: Endplate spurring is moderate anterior thecal sac flattening. No AP spinal canal stenosis is p resent. Neural foramen and moderate to severe bilateral foraminal narrowing L4-L5: Broad-based disc bulge is present with anterior thecal sac flattening. No spinal canal stenosi s is present. L5-S1: Broad-based disc bulge is moderate anterior thecal sac flattening. Ligamentum flavum laxity is present. This contributes spinal canal narrowing. Minimal retrolisthesis of L5 on S1 may be present. Endplate spurring is also present. Vertebral alignment appears straightened. Multilevel degenerative disc changes with loss of disc heig ht are present predominantly L2-3 through and L3-4. Posterior disc space narrowing is present L4-5 an d L5-S1. IMPRESSION: 1. Multilevel degenerative disc changes and loss of disc height to the lumbar spine discussed above. 2. Endplate spurring contributing to anterior thecal sac compression. 3. Mild retrolisthesis of L5 on S1. 4. Findings appear stable from 2016
== END | disposition home or self-care (01) ==
LOC: RADCTMAIN 12:13
PROVIDERS: ATTEND Orthopaedic Surgery
DX: M43.16 Spondylolisthesis, lumbar region (principal); M51.36 Other intervertebral disc degeneration, lumbar region
CPT/HCPCS: 72131

== ENCOUNTER → 2020-06-30 | Outpatient (CLI) | payer MEDICARE ==
[2020-06-30 10:59] VITALS: BP 117/76; PULSE 88; RESP 18; TEMP 97.9
--- NOTE | 2020-06-30 11:19 | P.PAINCN ---
History of Present Illness - Reason for Consult Consult date: 06/30/20 - History of Present Illness This is initial consultation visit for this 75 years old male with a chronic history of severe low back pain with radiation to the left lower extremity, patient reported that he had more than 2 years history of low back pain, intensity of the pain increased over the last 6 months is constant, radiated to the left lower extremity associated with some numbness and tingling sensation, he tried medication management Tylenol without any significant benefit, and he is currently on physical therapy, he doesn't feel any significant improvement, he denies any motor or sensory deficit, he is able to ambulate on his own, he denies any fever or night sweats. He denies any change in the bowel movement or urination Past Medical History Past Medical History: Atrial Fibrillation, Diabetes Mellitus, Hearing Disorder / Deafness, Hyperlipidemia, Musculoskeletal Disorder, Osteoarthritis (OA), Pneumonia, Prostate Disorder Additional Past Medical History / Comment(s): PYLORIC STENOSIS AN . ELEVATED PSA AND "SMALL SPOT" ON PROSTATE AND ENLARGED PROSTATE. History of Any Multi-Drug Resistant Organisms: None Reported Past Surgical History: Adenoidectomy, Cardiac Valve Replacement, Cholecystectomy, Coronary Bypass/CABG, Orthopedic Surgery, Tonsillectomy Additional Past Surgical History / Comment(s): AORTIC VALVE replaced 2012- MECHANICAL, cervical surgery. PYLORIC VALVE SURGERY INFANT. RIGHT KNEE SURGERY. RIGHT WRIST, left knee replaced in 2019 Past Anesthesia/Blood Transfusion Reactions: No Reported Reaction Additional Past Anesthesia/Blood Transfusion Reaction / Comm: PROBLEMS WITH POSTOP VOIDING-NEEDED A CATHETER. Past Psychological History: No Psychological Hx Reported Smoking Status: Former smoker Past Alcohol Use History: None Reported Additional Past Alcohol Use History / Comment(s): quit smoking 1968 Past Drug Use History: None Reported Additional Drug Use History / Comment(s): QUIT SMOKING IN 1968. - Past Family History Father Family Medical History: Diabetes Mellitus, Myocardial Infarction (AR) Additional Family Medical History / Comment(s): (2 brothers had CAD) Mother Family Medical History: Cancer Additional Family Medical History / Comment(s): PANCREATIC. Medications and Allergies Home Medications Medication Instructions Recorded Confirmed Type Atorvastatin [Lipitor] 40 mg PO DAILY 03/26/16 06/25/20 History Ferrous Sulfate [Feosol] 325 mg PO DAILY 03/26/16 06/25/20 History Furosemide [Lasix] 40 mg PO DAILY 03/26/16 06/25/20 History Niacin 500 mg PO DAILY 03/26/16 06/25/20 History Warfarin [Coumadin] 5 mg PO Q48H 03/26/16 06/25/20 History Warfarin [Coumadin] 7.5 mg PO Q48H 03/26/16 06/25/20 History atenoloL [Atenolol] 50 mg PO BID 03/26/16 06/25/20 History glipiZIDE [Glucotrol] 5 mg PO BID 03/26/16 06/25/20 History lisinopriL [Lisinopril] 2.5 mg PO DAILY 03/26/16 06/25/20 History metFORMIN HCL 1,000 mg PO BID 03/26/16 06/25/20 History Col-Rite 100 mg PO HS 12/06/19 06/25/20 History Semaglutide [Ozempic] 0.25 mg SQ MO 12/06/19 06/25/20 History Tamsulosin [Flomax] 0.4 mg PO DAILY 12/06/19 06/25/20 History Fluticasone Nasal [place] [Flonase 2 spr EA NOSTRIL DAILY PRN 06/25/20 06/25/20 History Nasal [place]] Magnesium 200 mg PO DAILY 06/25/20 06/25/20 History Montelukast [Singulair] 10 mg PO DAILY 06/25/20 06/25/20 History Allergies Allergy/AdvReac Type Severity Reaction Status Date / Time Penicillins Allergy Unknown Swelling Verified 06/25/20 11:01 Sulfa (Sulfonamide Allergy Unknown Unknown Verified 06/25/20 11:01 Antibiotics) Physical Exam Vitals: Vital Signs Temp Pulse Resp BP Pulse Ox 06/30/20 10:56 97.9 F 88 18 117/76 97 Physical Examinations : -Constitutiona : Cooperative , not in acute distress . -HEENT : nech : supple , no Lymphadenopathy , normal thyroid size . : eyes : no ptosis , no icterus, no photophobia . - neurologic : Cranial nerve II to XII intact , no focal neurological deffecit . -psychatric : alert , oriented X 3 , appropriate affect , intact judgment and insight . -Lymphatic : no Lymphadenopathy . - musculoskeltal : Lumber spine moter stegnth lower extremities ,thigh and legs 5/5 Right side , 5/5 Left side deep tendon reflexes : normal Knee Jerk , normal ankle Jerk lumber facet Loading Test =positive Right , positive Left Range of motion of the lumbar spine Flexion 30 degrees, extension 10 degrees strait leg raising test = positive at 60 degree on the left side Fabere test= negative bilaterally Results Comments: MRI of the lumbar spine= multilevel lumbar degenerative disc disease, lumbar facet arthropathy, lumbar foraminal stenosis at L3 4 Assessment and Plan Plan: Assessment and plan=1-lumbar radiculopathy. 2-lumbar spondylosis with lumbar facet arthropathy. 3-lumbar foraminal stenosis. 4-lumbar degenerative disc disease. Patient could benefit from a left-sided transforaminal epidural steroid injection at L3-4 level under fluoroscopy guidance We need to get approval from the wire drawing setter to hold hold Coumadin before the procedure Time with Patient: Greater than 30 PQRS Measure Charge Sheet Measure #130: Documentation of Current Meds in Medical Chart: Patient's medications documented in chart Measure #226: Tobacco Use: Screen & Cessation Intervention: Pt not a tobacco user Measure #111: Pneumonia Vaccination: Pneumococcal vaccine administered or previously received Measure #47: Advance Care Plan: Advance care planning discussed & documented, pt chose/unable to give Measure #412: Opioid Treatment Agreement: No documentation of signed opioid treatment agreement Measure #408: Opioid Therapy Follow-up Evaluation: Patient had NO f/u eval minimum every 3 months during opioid therapy Measure #317: Preventitive Care & Scrn High Bld Press & F/U: Normal blood pressure, f/u not required Measure #128: Body Mass Index (BMI) Screening & Follow-up: BMI documented ABOVE normal parameters - f/u documented Measure #131: Pain Assessment & Follow-up: Pain positive & plan documented, Follow-up scheduled Measure #431: Unhealthy Alcohol Use Preventative Care & Scrn: Patient not identified as an unhealthy alcohol user PQRS Narrative: Smoking Status Former smoker Blood Pressure 117/76 Pain Intensity [Lower Back] 3 Scale Used Numeric (1 - 10) Hx Alcohol Use (MH) No Home Medications: Ambulatory Orders Atorvastatin [Lipitor] 40 mg PO DAILY 03/26/16 Ferrous Sulfate [Feosol] 325 mg PO DAILY 03/26/16 Furosemide [Lasix] 40 mg PO DAILY 03/26/16 Niacin 500 mg PO DAILY 03/26/16 Warfarin [Coumadin] 5 mg PO Q48H 03/26/16 Warfarin [Coumadin] 7.5 mg PO Q48H 03/26/16 atenoloL [Atenolol] 50 mg PO BID 03/26/16 glipiZIDE [Glucotrol] 5 mg PO BID 03/26/16 lisinopriL [Lisinopril] 2.5 mg PO DAILY 03/26/16 metFORMIN HCL 1,000 mg PO BID 03/26/16 Col-Rite 100 mg PO HS 12/06/19 Semaglutide [Ozempic] 0.25 mg SQ MO 12/06/19 Tamsulosin [Flomax] 0.4 mg PO DAILY 12/06/19 Fluticasone Nasal [place] [Flonase Nasal [place]] 2 spr EA NOSTRIL DAILY PRN 06/25/20 Magnesium 200 mg PO DAILY 06/25/20 Montelukast [Singulair] 10 mg PO DAILY 06/25/20
== END ==
LOC: PNWHC3 10:28
PROVIDERS: ATTEND Specialist
DX: M47.26 Other spondylosis with radiculopathy, lumbar region (principal); M48.061 Spinal stenosis, lumbar region without neurogenic claudication; M51.16 Intervertebral disc disorders with radiculopathy, lumbar region; I48.91 Unspecified atrial fibrillation; E11.9 Type 2 diabetes mellitus without complications; E78.5 Hyperlipidemia, unspecified; M19.90 Unspecified osteoarthritis, unspecified site; Z79.84 Long term (current) use of oral hypoglycemic drugs; Z79.899 Other long term (current) drug therapy; Z87.891 Personal history of nicotine dependence
CPT/HCPCS: 99211

== ENCOUNTER 2020-07-31 09:38 | Day surgery (SDC) | payer MEDICARE ==
[2020-07-28 15:10] VITALS: BMI 28.5
[~2020-07-31 09:38] MED LIST changes: -ACETAMINOPHEN TAB 500 MG TAB PO ONE; -DEXAMETHASONE SOD PHOSPHATE 10 MG/ML 1 ML VIAL IV ONE; -HYDROmorphone 0.5 MG/0.5 ML SYRINGE IVP PRN; -MELOXICAM 7.5 MG TAB PO ONE; -MIDAZOLAM 2 MG/2 ML VIAL IV PRN; -ONDANSETRON 4 MG/2 ML VIAL IVP ONE; -ROPIVACAINE 246.25 MG, EPINEPHrine 0.5 MG, KETOROLAC 30 MG, cloNIDine HCL/PF 80 MCG, WA... MISCELLANE ONE; -SCOPOLAMINE 1.5MG/72HR PATCH TRANSDERM ONE; -TRANEXAMIC ACID 1,000 MG in SODIUM CHLORIDE 0.9% 100 ML IVPB ONE; -fentaNYL (PF) 50 MCG/ML 2 ML AMP IVP PRN
[2020-07-31 10:08] VITALS: TEMP 98
[2020-07-31 10:18] LABS: Glucose,Whole Blood 99 mg/dL (75-99)
[2020-07-31 10:54] LABS: INR 1.1 (<1.2); Prothrombin Time 11.3 sec (9.0-12.0)
[2020-07-31] MEDS ORDERED: fentaNYL (PF) 50 MCG/ML 2 ML AMP ONE (11:48)
[2020-07-31] MEDS ORDERED: IOPAMIDOL M200 10 ML VIAL ONE (11:48)
[2020-07-31] MEDS ORDERED: DEXAMETHASONE SOD PHOSPHATE 10 MG/ML 1 ML VIAL ONE (11:48)
[2020-07-31] MEDS ORDERED: LIDOCAINE 1% INJ 10MG/ML (20 ML MDV) ONE (11:48)
[2020-07-31] MEDS ORDERED: MIDAZOLAM 2 MG/2 ML VIAL ONE (11:48)
--- NOTE | 2020-07-31 12:05 | P.PCN ---
Date of Procedure: 07/31/20 Surgeon: Kathrin Hernandez Pathology: none sent Condition: stable Disposition: PACU Description of Procedure: PREOPERATIVE DIAGNOSIS: Lumbar radiculopathy POSTOPERATIVE DIAGNOSIS: Lumbar radiculopathy PROCEDURE 1. Transforaminal epidural steroid injection under fluoroscopic guidance at L3-4 left 2. Lumbar epidurogram. SURGEON: Kathrin Hernandez MD ANESTHESIA: Local with 1% lidocaine; IV sedation with Versed and fentanyl. EBL: Minimal PROCEDURE INDICATION: The patient with low back pain and radiculopathy symptoms unresponsive to conservative treatment. PROCEDURE DESCRIPTION / TECHNIQUE: The patient was seen and identified in the preoperative area. Risks, benefits, complications, and alternatives were discussed with the patient. The patient agreed to proceed with the procedure and signed the consent. IV was started, and vital signs were stable. The patient uses Coumadin due to history of A. fib and prosthetic cardiac valve. He stopped Coumadin about 4 days ago and his INR today is 1.1. The patient went on Lovenox for the last 24 hours and his last Lovenox dose was 9 AM yesterday which is more than 34 hours from the time of the procedure today. Patient was taken to the OR and time out was completed. The patient was placed in the prone position on procedure table and a pillow was placed under the abdomen to reduce lumbar lordosis. The lumbosacral area was prepped and draped in the usual sterile fashion. Critical pause was taken. Vital signs were closely monitored during the procedure. Conscious sedation was used during the procedure to decrease patients anxiety. The vertebral body of the lumbar vertebra L3 was squared off by tilting the C-arm cephalad then the C-arm was tilted to the oblique position and the t arget point was at the 6 o'clock position of the pedicle of then skin and deeper tissues were localized with 1% lidocaine. Subsequently, a 22-gauge 3.5- inch spinal needle was advanced under a tunneled view fluoroscopic guidance just underneath the chin of the Geoffrey dog at the . Under lateral fluoroscopy, the needle was then advanced to the middle of the upper one third of the foramen between(L3-4 ). After negative aspiration of CSF and blood and with no paresthesias, 1 mL of omnipaque contrast dye was injected excellent epidurogram and outlining of the L3 nerve root was identified. Subsequently, 2 mL of block solution containing 10 mg of Decadron and 1 mL of Lidocaine 1% PF was injected. Needle was removed intact . At the end of the procedure, skin was cleansed, and bandages were applied. COMPLICATIONS: None COMMENTS: DISPOSITION / PLANS: The patient was placed in a supine position and transferred to the recovery area in a stable condition for observation. There was no e vidence of lower extremity motor or sensory deficit after the procedure. Patient was discharged from the recovery room after meeting discharge criteria. Home discharge instructions were given to the patient by the staff.
[2020-07-31] MEDS ORDERED: IV FLUID CONTINUATION 1,000 ML IV ONE (12:12)
[2020-07-31 12:30] VITALS: BP 136/78; PULSE 88; RESP 16
--- NOTE | 2020-07-31 14:44 | FL ---
Fluoroscopy HISTORY: Pain 31 seconds fluoroscopy time supplied to the referring clinician. 2 intraoperative C-arm images docum ent the procedure. See dictated report from anesthesia.
== END 2020-07-31 12:43 | disposition home or self-care (01) ==
LOC: ORPAIN 09:38
PROVIDERS: ATTEND Anesthesiology
DX: M54.16 Radiculopathy, lumbar region (principal); Z88.2 Allergy status to sulfonamides; Z88.0 Allergy status to penicillin; Z79.01 Long term (current) use of anticoagulants; E11.9 Type 2 diabetes mellitus without complications; I48.91 Unspecified atrial fibrillation
CPT/HCPCS: 85610; 64483; J2250; J1100; J2001; J3010; Q9966; 99152

== ENCOUNTER → 2020-08-25 | Outpatient (CLI) | payer MEDICARE ==
--- NOTE | 2020-08-25 13:21 | P.PN ---
Subjective Progress Note Date: 08/25/20 This is a follow-up visit for this 75 years old male with a chronic history of severe low back pain with radiation to the left lower extremity associated with severe numbness and tingling sensation, diagnosed with lumbar radiculopathy and lumbar degenerative disc disease, recently we have done less than a transforaminal epidural steroid injection at L3 4 levels, he continued to have severe pain , he denies any motor or sensory deficit, his done physical therapy without any significant improvement Objective - Vital Signs Vital signs: Vital Signs Temp 98.1 F 08/25/20 12:38 Pulse 85 08/25/20 12:38 Resp 18 08/25/20 12:38 BP 130/71 08/25/20 12:38 Pulse Ox 99 08/25/20 12:38 - Exam Physical Examinations : -Constitutiona : Cooperative , not in acute distress . -HEENT : nech : supple , no Lymphadenopathy , normal thyroid size . : eyes : no ptosis , no icterus, no photop hobia . - neurologic : Cranial nerve II to XII intact , no focal neurological deffecit . -psychatric : alert , oriented X 3 , appropriate affect , intact judgment and insight . -Lymphatic : no Lymphadenopathy . - musculoskeltal : Lumber spine moter stegnth lower extremities ,thigh and legs 5/5 Right side , 5/5 Left side deep tendon reflexes : normal Knee Jerk , normal ankle Jerk lumber facet Loading Test =positive Right , positive Left Range of motion of the lumbar spine Flexion 30 degrees, extension 10 degrees strait leg raising test = positive at 60 degree on the left side Fabere test= negative bilaterally Results Comments: MRI of the lumbar spine= multilevel lumbar degenerative disc disease, lumbar facet arthropathy, lumbar foraminal stenosi Assessment and Plan Plan: Assessment and plan=1-lumbar radiculopathy. 2-lumbar spondylosis with lumbar facet arthropathy. 3-lumbar foraminal stenosis. 4-lumbar degenerative disc disease. Patient could benefit from a left-sided transforaminal epidural steroid injection at L3-4 level under fluoroscopy guidance We need to get approval from the racing manager to hold hold Coumadin before the procedure - PQRS measures = - Patient's medications are documented in the chart. -Tobacco use is negative and counseling.Given. -Patient's has not received pneumococcal vaccine. -Advanced care planning discussed, patient not eligible. -Opiate contract not signed. -Pain positive and follow-up visit/procedure is scheduled. -Patient's blood pressure measured [130/71 ] , and documented in the record ,and patient will follow up with the primary care. -Patient's weight was measured and body mass index [28.1 ] above the normal limits and counseling was done. and patient instructed to follow-up with the primary care physician. -Patient was not identified as an unhealthy alcohol user Time with Patient: Less than 30
== END ==
CPT/HCPCS: 99211

== ENCOUNTER 2020-09-16 10:58 | Day surgery (SDC) | payer MEDICARE ==
[2020-09-12 09:23] VITALS: BMI 28.8
[2020-09-16 11:20] VITALS: RESP 18; TEMP 97.2
[2020-09-16] MEDS ORDERED: LACTATED RINGERS 1,000 ML IV ONE (11:20)
[2020-09-16 11:27] LABS: Glucose,Whole Blood 121 mg/dL (75-99)
[2020-09-16 11:38] LABS: Prothrombin Time 11.1 sec (9.0-12.0)
[2020-09-16] MEDS ORDERED: fentaNYL (PF) 50 MCG/ML 2 ML AMP ONE (11:54)
[2020-09-16] MEDS ORDERED: methylPREDNISolone ACETATE 40 MG/ML 1 ML VIAL ONE (11:54)
[2020-09-16] MEDS ORDERED: MIDAZOLAM 2 MG/2 ML VIAL ONE (11:54)
[2020-09-16] MEDS ORDERED: IOPAMIDOL M200 10 ML VIAL ONE (11:54)
--- NOTE | 2020-09-16 12:12 | P.PCN ---
Date of Procedure: 09/16/20 Procedure(s) Performed: PREOPERATIVE DIAGNOSIS: Lumbar radiculopathy . POSTOPERATIVE DIAGNOSIS: Same as preoperative diagnoses. PROCEDURE 1. Transforaminal epidural steroid injection under fluoroscopic guidance at left L3-4 level. (Fluoroscopy images stored on file in the radiology Department ) 2. Lumbar epidurogram . ANESTHESIA: Local with 1% lidocaine 3 ml , moderate sedation with intravenous Versed 1 mg and fentanyle 50 micrograms. EBL: Minimal PROCEDURE INDICATION: The patient with low back pain and radiculopathy symptoms unresponsive to conservative treatment. PROCEDURE DESCRIPTION / TECHNIQUE: The patient was seen and identified in the preoperative area. Risks, benefits, complications, and alternatives were discussed with the patient. The patient agreed to proceed with the procedure and signed the consent. IV was started, and vital signs were stable. Patient was taken to the OR and time out was completed. The patient was placed in the prone position on procedure table and a pillow was placed under the abdomen to reduce lumbar lordosis. The lumbosacral area was prepped and draped in the usual sterile fashion. Critical pause was taken. Vital signs were closely monitored during the procedure. Conscious sedation was used during the procedure to decrease patient s anxiety. Using oblique fluoroscopy, the chin of the ``Geoffrey dog at left L3-4 level was identified, and the skin and deeper tissues just below was localized with 1% lidocaine. Subsequently, a 22-gauge 3.5-inch spinal needle was advanced under a tunneled view fluoroscopic guidance just underneath the chin of the ``Geoffrey dog at the right/left L4-5 Under lateral fluoroscopy, the needle was then advanced to the posterior border of the interforaminal space. After negative aspiration of CSF and blood and with no paresthesias, 1 mL Isovue 200 contrast dye was injected excellent epidurogram and outlining of the nerve root Subsequently, 3 mL of block solution containing 40 mg Depo-Medrol and 2 mL of 0.9% normal saline PF was injected. Needle was removed . At the end of the procedure, skin was cleansed, and bandages were applied. COMPLICATIONS:none DISPOSITION / PLANS: The patient was placed in a supine position and transferred to the recovery area in a stable condition for observation. There was no evidence of lower extremity motor or sensory deficit after the procedure. Patient was discharged from the recovery room after meeting discharge criteria. Home discharge instructions were given to the patient by the staff. The patient was reexamined prior to discharge. note= patient had a history of arterial fibrillation and he stopped Coumadin 5 days ago, his INR 1.1 he was taking Lovenox the last dose of Lovenox was yesterday, Allan resume his anticoagulation today 12 hours after the procedure
[2020-09-16 12:41] VITALS: BP 132/88; PULSE 100
[2020-09-16] MEDS ORDERED: IV FLUID CONTINUATION 1,000 ML IV ONE (12:41)
--- NOTE | 2020-09-16 13:19 | FL ---
Fluoroscopy HISTORY: Pain 7 seconds fluoroscopy time supplied to the referring clinician. 1 intraoperative C-arm images docume nt the procedure. See dictated report from anesthesia.
== END 2020-09-16 12:50 | disposition home or self-care (01) ==
LOC: ORPAIN 10:58
PROVIDERS: ATTEND Specialist
DX: M54.16 Radiculopathy, lumbar region (principal); Z88.0 Allergy status to penicillin; Z88.2 Allergy status to sulfonamides
CPT/HCPCS: 85610; 64483; J2250; J1030; J3010; Q9966; 99152

== ENCOUNTER → 2020-12-26 | Outpatient (CLI) | payer MEDICARE | END | disposition home or self-care (01) | LOC: LABPAT 11:49 | PROVIDERS: ATTEND Orthopaedic Surgery | DX: Z01.812 Encounter for preprocedural laboratory examination (principal); M48.07 Spinal stenosis, lumbosacral region; Z22.322 Carrier or suspected carrier of Methicillin resistant Staphylococcus aureus | CPT/HCPCS: 87070 ==

== ENCOUNTER → 2021-01-05 | Outpatient (CLI) | payer MEDICARE ==
[2021-01-05 11:54] LABS: INR 1.1 (<1.2); Prothrombin Time 11.6 sec (9.0-12.0)
[2021-01-05 12:00] LABS: African American GFR (CKD) >90 (>60 ml/min/1.73 sqM); Anion Gap 9 mmol/L; Blood Urea Nitrogen 12 mg/dL (9-20); Calcium 9.9 mg/dL (8.4-10.2); Carbon Dioxide 29 mmol/L (22-30); Chloride 98 mmol/L (98-107); Glucose 184 mg/dL (74-99); Non-African American GFR(CKD) >90 (>60 ml/min/1.73 sqM); Potassium 4.3 mmol/L (3.5-5.1); Sodium 136 mmol/L (137-145)
== END | disposition home or self-care (01) ==
LOC: LABPAT 10:15
PROVIDERS: ATTEND Orthopaedic Surgery
DX: Z01.812 Encounter for preprocedural laboratory examination (principal); M48.07 Spinal stenosis, lumbosacral region
CPT/HCPCS: 36415; 80048; 85610

== ENCOUNTER 2021-01-06 05:37 | Inpatient (IN) | payer MEDICARE ==
[2021-01-01 16:46] VITALS: BMI 28.5
--- NOTE | 2021-01-05 16:38 | P.HPOR ---
History of Present Illness H&P Date: 12/29/20 Chief Complaint: Leg pain, weakness, low back pain Date of :[birth year] [id number]: Age: 75 year Height: 6' Weight: 210 lbs BP:126/73 BMI: 28.48 kg/m2 Occupation: Retired VAS: 4 CHIEF COMPLAINT: Low back pain HISTORY: Xrays no new xrays taken today Trauma or injury No Work-Related No Pain description aching, sharp. Location diffuse Activity Modification yes , unable to complete many of his daily functions due to the severity of his symptoms. Cannot stand or ambulate for extended periods of time. Hand Dominance right DOI: Chronic, no injury or trauma DOS: None TREATMENTS COMPLETED: 6 weeks of PT completed? Yes Did it help? yes, had good but temporary improvements. Physician directed home exercise completed? yes , without improvements. Medications yes List: Medrol dose justino, without improvements to his symptoms. Alternative interventions Chiropractic?: No Brace: No Injections Yes How many? 3 Did they help? yes, brought temporary relief RFA: No Subjective: Patient presents today for a pre-surgical appointment. He notes that his symptoms have not improved since his last appointment. Patient notes that he has tried all conservative treatments and though he saw improvements, they were temporary and his symptoms have worsened. His daily functionality is very limited secondary to his low back pain and left lower extremity. He notes that he has considerable weakness about the left lower extremity. Due to his symptoms, he also has severe sleep disturbances which is causing him great distress. The patient denies any improvement with the steroid injections and wishes to proceed with the planned procedure. All questions and concerns were addressed. HPI: At the time of the patient's last appointment on (10/20/2020) regarding his low back pain. He noted that his symptoms had not improved since his last appointment. The patient denied any improvement with the steroid injections and was ready to discuss surgical options. Patient returns (08/04/2020) with lumbar spine pain. He continues with home exercises with great improvements. Patient tried physical therapy and was not happy with the results of the treatment. He had numbness and tingling in his right foot. He had his first lumbar injection on 07-31-2020 which helped him moderately. He plans on going back for a second and third injection. Patient ambulates independently. He does not take pain medications. The patients' past social, medical, family, surgical history, as well as review of systems, have been reviewed. Please refer to the Neurosurgery History and Physical form that has been scanned in to our electronic medical record system. Review of Systems 14 points review of systems completed and as stated in HPI, all other systems reviewed are negative. Past Medical History Past Medical History: Atrial Fibrillation, Chest Pain / Angina, Diabetes Mellitus, Hearing Disorder / Deafness, Hyperlipidemia, Musculoskeletal Disorder, Osteoarthritis (OA), Pneumonia, Prostate Disorder Additional Past Medical History / Comment(s): Pyloric stenosis as . Elev PSA, BPH, biopsy nl. Severe fall in his 30's w/ poss injury to back. Chronic lower back pain NT BLE. History of Any Multi-Drug Resistant Organisms: None Reported Past Surgical History: Adenoidectomy, Cholecystectomy, Heart Catheterization, Orthopedic Surgery, Tonsillectomy Additional Past Surgical History / Comment(s): "Aortic Valve"-Mechanical 2012. Pyloric Valve surgery as infant. Rt Total Knee surgery. Rt Wrist surgery. Total Lt Knee surgery 2019. Pain injections back x2. Past Anesthesia/Blood Transfusion Reactions: Previous Problems w/ Anesthesia Additional Past Anesthesia/Blood Transfusion Reaction / Comment(s): Problems voiding post-op, needed a catheter. Smoking Status: Former smoker - Past Family History Father Family Medical History: Diabetes Mellitus, Myocardial Infarction (ID) Additional Family Medical History / Comment(s): (2 brothers had CAD, CHF) Mother Family Medical History: Cancer Additional Family Medical History / Comment(s): PANCREATIC. Medications and Allergies Home Medications Medication Instructions Recorded Confirmed Type Atorvastatin [Lipitor] 40 mg PO DAILY 03/26/16 01/01/21 History Ferrous Sulfate [Feosol] 325 mg PO DAILY 03/26/16 01/01/21 History Furosemide [Lasix] 40 mg PO DAILY 03/26/16 01/01/21 History Niacin 500 mg PO DAILY 03/26/16 01/01/21 History Warfarin [Coumadin] 7.5 mg PO DAILY 03/26/16 01/01/21 History atenoloL [Atenolol] 50 mg PO BID 03/26/16 01/01/21 History glipiZIDE [Glucotrol] 5 mg PO BID 03/26/16 01/01/21 History lisinopriL [Lisinopril] 2.5 mg PO DAILY 03/26/16 01/01/21 History metFORMIN HCL 1,000 mg PO BID 03/26/16 01/01/21 History Tamsulosin [Flomax] 0.4 mg PO DAILY 12/06/19 01/01/21 History Magnesium 400 mg PO DAILY 06/25/20 01/01/21 History Docusate Sodium [Dok] 100 mg PO HS 01/01/21 01/01/21 History Enoxaparin [Lovenox] 40 mg SQ DAILY 01/01/21 01/01/21 History Allergies Allergy/AdvReac Type Severity Reaction Status Date / Time Penicillins Allergy Unknown Swelling Verified 01/01/21 16:09 Sulfa (Sulfonamide Allergy Unknown Unknown Verified 01/01/21 16:09 Antibiotics) Physical Examination Osteopathic Statement: *. No significant issues noted on an osteopathic structural exam other than those noted in the History and Physical/Consult. PHYSICAL EXAMINATION: General: Awake, alert, appropriate for age, in no acute distress. HEENT: No unusual neck masses around region of lateral neck triangle, thyroid, supraclavicular groove Heart: Regular rate and rhythm, normal S1, S2 and no murmur/gallop. Lungs: Clear to auscultation bilaterally with no use of accessory muscles. Extremities: Skin warm and dry without acute lesions, coloration, temperature, skin intact, no tenderness or erythema Integument: Hairy patches: Absent Dorsal skin dimples: Absent Cafe au lait spots: Absent Surgical incisions: None present Palpation: Please see Pain drawing on Intake sheet for further detail. mild paralumbar tenderness to palpation. No midline tenderness some buttock tenderness on the right POSTURAL and MUSCULO-SKELETAL EVALUATION: Coronal Balance: NEUTRAL Recumbent testing: Patient is able to lay flat on back Sagittal Balance: NEUTRAL Shoulder Profile: LEVEL Pelvic Girdle: LEVEL Neck ROM: UNRESTRICTED Lumbar ROM: UNRESTRICTED Shoulder ROM: Symmetrical Hip ROM: Symmetrical Knee ROM: Symmetrical Hands: Normal appearance, symmetrical Feet: Normal appearance, Symmetrical VASCULAR STATUS : LEFT RIGHT Wrist Pulses INTACT INTACT Pedal Pulses (Dors. pedis & post.tibialis) INTACT INTACT Color NORMAL NORMAL Edema Absent Absent NEUROLOGIC EXAMINATION: Mental Status:Awake and alert, fully oriented, with normal attention, concentration and memory, and fluent, appropriate speech. Cranial Nerves: I: Olfactory not tested. II: Visual acuity normal, no visual field deficit noted with confrontation. III,IV: Normal pupillary reflexes & intact extraocular movements without nystagmus. V,: Intact symmetrical facial sensation. VII: Intact symmetrical facial motor movement VIII: Hearing intact. IX,X: Intact gag, swallow, & normal voice. XI: Sternocleidomastoid, trapezius function intact. XII: Tongue midline with normal movements. L'hermitte's Sign: Negative / absent Spurling'Sign: Absent bilaterally. Cubital percussion test: Absent bilaterally. Rosa-Tinel sign - Carpal region: Absent bilaterally. Straight Leg Raising: Absent bilaterally. Crossed straight leg raise: negative O8 MOTOR EXAM (0-5/5, N/T) STRENGTH RIGHT LEFT Shoulder Abd (not part of the ANUJ score) 5 5 Elbow Flexors 5 4 Elbow Extensor 5 4 Wrist Dorsiflexors 5 5 Finger Abductor 5 5 Supervisor Extruding Department 5 5 Hip Flexor (Not part of ANUJ Motor score) 5 5 Knee Flexor 5 5 Knee Extensor 5 5 Ankle dorsiflexor 4 4 Ankle plantarflexion 4 4 Extensor hallucis 5 5 REFLEXES(0-4/2, NT) RIGHT LEFT Upper Extremities 2 2 Lower Extremities 2 2 Pathological Reflexes RIGHT LEFT Bradshaw's Absent Absent Clonus Absent Absent Babinski Absent Absent # Indicates mechanical impairment Muscle appearance: Symmetrical, without atrophy or dystrophy Rectal Tone:Deferred Normal, strong with volition control Sensory system (0-4, N/T) Test type RU COLT RL LL Joint-Position 2 2 2 2 Vibration 2 2 2 2 Pain & LT sense 2 2 2 2 Dermatomal Deficit: None None None None Gait and Functional Evaluation: Ambulatory aids: Independent Romberg's test: Intact bilaterally Toe heel walk / heel-toe walk intact while maintaining satisfactory balance? yes Squatting/straightening w/o assistance to a min of 60 degree knee flexion? yes Single leg stance: intact Trendelenburg sign negative bilaterally Hand and finger dexterity intact bilaterally? yes Disdiadochokinesis examination negative bilaterally? yes Results images were reviewed again this demonstrates spondylosis L1 to S1 with stenosis L1 to L5. Worst is at L12 to 3 and 34. The patient is very active he does not demonstrate any instability. His main problem is stenosis with facet arthrosis and overgrowth. CT scan of the lumbar spine from 06/05/2020 reveals: severe spondylosis throughout the lumbar spine. There is flattening of the normal lumbar lordosis. There are osteophyte formations as well as facet overgrowth throughout the lumbar spine. There is a large subchondral cyst which is noted in the posterior superior body of L3. Negative fracture or dislocation is noted at this time. There is disc desiccation throughout the lumbar spine as well. There is facet arthrosis throughout the lumbar spine. MRI of lumbar spine is reviewed without contrast. This demonstrates severe stenosis at L2 through L3 4. The severe spondylosis throughout the lumbar spine from L1 to S1. There is retrolisthesis of L5 and S1. There are no fractures or dislocations noted no lesions. There is advanced spondylitic changes however. L4 5 and L5-S1 have moderate stenosis noted. Assessment and Plan Assessment: 1. L1-S1 stenosis 2. Spondylosis L1-S1 3. Neurogenic claudication 4. Claudicant low back pain Plan: 1. Based on the pathology of his back we did discuss the necessity for surgical intervention to relieve his symptoms. We will plan on a L1-L5 Laminectomy 2. Given a script for a LSO bace that he will bring with him to the hospital for him to use post-operatively. Spine Surgery Risk Review Akhil Grewal is a Patient presenting for evaluation of Low back pain . It was my pleasure to have seen and examined Akhil Grewal. In our visit today we have had a chance to go over subjective complaints, physical examination findings and treatments including the natural course history without intervention and various interventional options. The patients imaging demonstrates [Findings]. On physical exam, Akhil Grewal demonstrates [Findings]. I have explained to the patient that as their condition progresses it will cause further neurological deficits and eventual paralysis. Based on the patients imaging, physical exam, and the rapid progression and disabling nature of their symptoms, at this time I recommend surgery in the form or a: L1-L5 Laminectomy. I discussed the risk and benefits of this procedure at length with Akhil Grewal. The patient and agreed to considered pursuing the procedure abovementioned. Prior to surgery, she should follow up with her PCP (Cardio, ID, IM etc) for clearance. Questions were invited and answered, and the patient wishes to proceed as outlined below. Currently, I am recommendin.L1-S1 Laminectomy and decompression 2.Follow up with PCP for surgical clearance 3.Review of surgical risks and benefits as well as an educational packet on the proposed surgical procedure. Risks: All surgical procedures come with inherent risks, including those related to positioning, anesthesia, intraoperative findings, and postoperative complications. It is important to understand that surgery does not come with any guarantee of a successful outcome as complications and adverse events are always possible. The patient was given a handout in office today discussing the surgical procedure and risks associated with the intervention, both of which were discussed with the patient. These risks include but are not limited to the following: * Experiencing same, different or even worse symptoms in back, neck, arms, or legs compared to before surgery. Requiring further surgery or other forms of treatment presently or at some time in the future at same or other levels of the intended spine surgery. On an extreme but fortunately relatively rare basis severe complication such as blindness, stroke, heart attack, temporary and/or permanent nerve injury, paralysis, coma, or may occur, sometimes without known explanation. Surgical complications may include but are not limited to risk of infection, fluid accumulation in the surgical dissection site, including a seroma or hematoma, that requires additional surgery, wound drainage, bleeding, new numbness or weakness, vision changes/loss, spinal fluid leakage, non-healing and/or infected incision, headaches, difficulty or inability to swallow, hoarseness, hemopneumothorax, pneumothorax, impotence, retrograde ejaculation, vaginal dryness; injury to nerves, spinal cord, blood vessels, lymphatics or other vital organs (i.e., bowel injury, injury to the great vessels); heterotopic bone formation; complications related to the hardware such as screws, rods, cages including misplaced hardware, device failure, instrumentation at the wrong spine level, hardware fracture/breakage, or hardware loosening; vertebral failure of the spinal column above or below the newly placed hardware; retained surgical instrumentations or devices and the need for further surgery. * Medical risks of the planned spine surgery include but are not limited to generalized Infections to the whole body or local areas outside of the surgical site (sepsis), heart attack, bleeding, anaphylaxis, meningitis, seizure, epilepsy, hearing loss, burn roth, laceration of the head or other areas of the body, bruising, hypersensitivity of the skin, bladder over distension; allergic reaction; shoulder injury related to positioning; fat, blood and air clots to other areas of the body like heart, lungs, brain; failure of internal organs such as lungs, kidneys, liver and excessive bleeding. If blood transfusions are necessary, note that transfusions may cause intolerance reactions such as anaphylaxis or other complex reactions. Despite best efforts, the results of spine surgery might not heal in terms of bone, soft tissues such as skin, fascia, ligaments, and joints. Additionally, in order to achieve best possible results, spine surgery may be carried out beyond the initially planned levels and involve decompression, fusion including insertion of hardware at levels other than the original intended area of surgical interest change some portions of the procedure in order to ensure the best possible outcomes. With spine surgery and spinal fusion, there are different off label uses of instrumentation (devices, implants and hardware) as well as biological substances (bone morphogenic proteins, demineralized bone matrix) as well as using extra bone from allograft sources (i.e. cadaver bone) or autograft (iliac crest bone, ribs, or the spine itself). The patient has been given information about these practices and their inherent risks and benefits. [facility] is an educational center that serves as a training facility for neurosurgical and orthopedic spine residents and fellows. Residents are physicians who are completing their surgical intensive training following medical school. They assist in the operating room with direct supervision of the attending surgeons. [place] are surgeons who have completed their training and eligible for board certification. They have opted for an elective year of more specialized training in their field. They assist in the operating room under the supervision of the attending surgeons. Physician assistants are medically trained surgical providers who function in the outpatient, inpatient, and operating room setting under the direct supervision of the attending surgeon. [facility] has multiple operating rooms with single and overlapping rooms running daily. They currently function under the required guidelines as produced by the [facility] Finance Committee with regards to the overlapping rooms and will continue to comply with changes to this policy as they occur. The requirements include and are complied with as follows: (1) the critical portions of the overlapping rooms will not occur at the same time, (2) the attending physician will be physically present during the critical portions of the procedure and immediately available during the entire case, and (3) a back-up attending is designated should the primary attending not be immediately available. The patient has had a chance to review all the listed information, has been given print outs detailing this information, and has had all his/her questions answered to their satisfaction. It was my pleasure to have seen and examined Akhil Grewal. In our visit today we have had a chance to go over my understanding of our patient's current condition, the natural course history without intervention and various interventional options. Questions were invited and answered, and the patient wishes to proceed as outlined above. I have seen and examined the patient for 25 minutes and we have spent more than 50% of the time in repeat and detailed counseling about the patient's condition, its natural course history with out and as much as can be predicted with surgery and re-review of various surgical treatment options. In conclusion, Akhil Grewal requested we proceed with the above suggested surgery and are willing to accept risks and limitations of the suggested surgery as nature of the disease process and our best attempts at treatment for the condition. Thank you again for allowing us to be part of your patient's care. Please don't hesitate to contact me if you have any further questions. Signed and authenticated by: [employer] P:\\\\ppart\\\\Files\\\\[id number] \\[id number]\\\\[id number]\\\\[id number]\\\\[id number]\\\\[id number]\\\\[id number] \\\\[id number]\\\\[id number]\\\\[id number] \\d Jon Am[facility] [address] [facility], [address] [address] In our visit today Mr. Grewal and I have had a chance to go over my understanding of the patient's current condition, the natural course history without intervention and various interventional options. Questions were invited and answered, and the patient wishes to proceed as outlined above. I will be sure to keep you updated afterMr. Grewal returns here for further follow-up. Thank you again for your referral. Please do not hesitate to contact me if you have any further questions.
[~2021-01-06 05:37] MED LIST changes: +ACETAMINOPHEN TAB 500 MG TAB PO PRN; -LACTATED RINGERS 1,000 ML IV SCH; +ONDANSETRON 4 MG/2 ML VIAL IVP PRN; +TRANEXAMIC ACID 1,000 MG in SODIUM CHLORIDE 0.9% 100 ML IVPB PRN
[2021-01-06] MEDS ORDERED: DEXAMETHASONE SOD PHOSPHATE 4 MG/ML 1 ML VIAL IV ONE (06:01)
[2021-01-06] MEDS ORDERED: ONDANSETRON 4 MG/2 ML VIAL IVP ONE (06:01)
[2021-01-06] MEDS ORDERED: LIDOCAINE 1% (10MG/ML) FOR IV START INTRADERMA PRN (06:01)
[2021-01-06] MEDS ORDERED: LACTATED RINGERS 1,000 ML IV ONE ×2 (06:23→13:15)
[2021-01-06 06:32] LABS: Glucose,Whole Blood 124 mg/dL (75-99)
--- NOTE | 2021-01-06 07:24 | P.PN ---
Progress Note - Text Progress Note Date: 01/06/21 Pt s/e in Pre op today. No changes in H&P. Risks and benefits discussed again with him and his . They are ready to proceed. Consent confirmed. NPO. Awaiting PT/INR labs this AM. Pt has been bridged with lovenox and off for the last 8 hrs. They are ready to proceed.
[2021-01-06] MEDS ORDERED: TRANEXAMIC ACID 1,000 MG/10 ML VIAL ONE (07:38)
[2021-01-06] MEDS ORDERED: PROPOFOL 10 MG/ML 20 ML VIAL IV ONE (07:38)
[2021-01-06] MEDS ORDERED: MIDAZOLAM 2 MG/2 ML VIAL ONE (07:38)
[2021-01-06] MEDS ORDERED: fentaNYL (PF) 50 MCG/ML 2 ML AMP ONE (07:38)
[2021-01-06] MEDS ORDERED: HYDROmorphone (PF) 1 MG/ML ONE (07:38)
[2021-01-06] MEDS ORDERED: PHENYLEPHRINE-0.9% NACL SYG 1,000 MCG/10 ML SYRINGE ONE (07:38)
[2021-01-06] MEDS ORDERED: SODIUM CHLORIDE 0.9% 100 ML BAG ONE (07:38)
[2021-01-06] MEDS ORDERED: SUCCINYLCHOLINE CHLORIDE 100 MG/5 ML SYR IV ONE (07:38)
[2021-01-06] MEDS ORDERED: LIDOCAINE 1% INJ 10MG/ML (20 ML MDV) ONE (07:38)
[2021-01-06] MEDS ORDERED: ROCURONIUM 10 MG/ML (5 ML VIAL) IV ONE (07:38)
[2021-01-06] MEDS ORDERED: NEOSTIGMINE 1 MG/ML 10 ML VIAL ONE (07:38)
[2021-01-06] MEDS ORDERED: GLYCOPYRROLATE 0.2 MG/ML 2 ML VIAL ONE (07:38)
[2021-01-06 07:40] LABS: Partial Thromboplastin Time 23.9 sec (22.0-30.0)
[2021-01-06] MEDS ORDERED: VANCOMYCIN 1,500 MG in SODIUM CHLORIDE 0.9% 250 ML IVPB ONE (08:15)
[2021-01-06] MEDS ORDERED: BUPIVACAINE (PF) 0.25% 30 ML VIAL SQ ONE (08:20)
[2021-01-06] MEDS ORDERED: VANCOMYCIN 1,000 MG VIAL MISCELLANE ONE (08:20)
[2021-01-06] MEDS ORDERED: THROMBIN (BOVINE) 5,000 UNIT VIAL TOPICAL ONE (08:30)
[2021-01-06] MEDS ORDERED: GELATIN SPONGE,ABSORB (LARGE) 1 EACH SPONGE TOPICAL ONE (10:45)
--- NOTE | 2021-01-06 11:45 | XR ---
EXAMINATION TYPE: XR lumbar spine 2 or 3V, FL guidance operating room DATE OF EXAM: 01/06/2021 COMPARISON: NONE HISTORY: MR laminectomy Fluoroscopy support supplied to the referring clinician. See dictated report from orthopedic surgery , 9 seconds fluoroscopy time supplied, 7 intraoperative C-arm images document the procedure
[2021-01-06] MEDS ORDERED: HYDROcodone/APAP 10-325MG 1 EACH TAB PO PRN (12:22)
[2021-01-06] MEDS ORDERED: MAGNESIUM HYDROXIDE 2,400 MG/10 ML CUP PO PRN (12:22)
[2021-01-06] MEDS ORDERED: HYDROmorphone 0.5 MG/0.5 ML SYRINGE IVP PRN (12:22)
[2021-01-06] MEDS ORDERED: SENNOSIDES-DOCUSATE SODIUM 1 EACH TAB PO PRN (12:22)
[2021-01-06] MEDS ORDERED: HYDROcodone/APAP 5-325MG 1 EACH TAB PO PRN (12:22)
[2021-01-06 12:38] LABS: Glucose,Whole Blood 243 mg/dL (75-99)
[2021-01-06] MEDS: HYDROmorphone 0.5 MG/0.5 ML SYRINGE IVP PRN ×2 (12:40→12:52)
[2021-01-06] MEDS ORDERED: INSULIN ASPART (NovoLOG) 100 UNIT/ML VIAL SQ ONE (12:58)
[2021-01-06] MEDS ORDERED: HYDROmorphone 0.5 MG/0.5 ML SYRINGE IVP ONE (13:12)
--- NOTE | 2021-01-06 14:15 | P.PN ---
Progress Note - Text Progress Note Date: 01/06/21 Brief Post Op: Surgeon: Akosua Assist: Mansoor Pre op dx; lumbar spondylosis with severe stenosis neurogenic claudication lower extremity weakness Post op dx: Same Procedure: L1 to S1 decompressive laminectomy medial facetectomy and foraminotomy Anesthesia: GETA EBL: 200 Fluids: 1000 UO: 50 Dispo: Stable to PACU Post op Plan: Encourage ambulation IS 10x/hr Teds/SCDs Pain control LSO brace when up and about Record Drain output
--- NOTE | 2021-01-06 14:29 | P.OP ---
Date of Procedure: 01/06/21 Preoperative Diagnosis: 1. L1-S1 stenosis, severe 2. Spondylosis L1-S1 3. Neurogenic claudication 4. Claudicant low back pain Postoperative Diagnosis: 1. L1-S1 stenosis, severe 2. Spondylosis L1-S1 3. Neurogenic claudication 4. Claudicant low back pain Procedure(s) Performed: 1. L1-2; L2-3; L3-4; L4-5 and L5-S1 bilateral decompressive laminectomy, partial medial facetectomy and foraminotomy 2. Intraoperative interpretation of flouroscopic images <1 hr Implants: none Anesthesia: GETA Surgeon: Jon South Iron Handler #1: Jared Alex (Was present for the entire case ) Estimated Blood Loss (ml): 200 IV fluids (ml): 1,000 Urine output (ml): 200 Pathology: none sent Condition: stable Disposition: PACU Indications for Procedure: 76 yo male with long hx of back pain and leg pain has had progression of his symptoms to the point of having weakness in his LE R>L, difficulty with ambulation, limited walking secondary to his pain and weakness as well as radicu lar pain in his legs. 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 He has tried multiple different conservative treatments including PT, home exercise, injections, medications RX and OTC without improvement of his symptoms. His MRI showed severe spondylosis with severe stenosis of his lumbar spine. We discussed different treatment options at length. 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 He does not have any severe instability of his spine and his parameters are reasonable for his age. We discussed these options and he is comfortable with decompressive surgery only at this time. Pt was seen in pre op area and risks discussed again as outlined in risk review. He is ready to proceed. Description of Procedure: The patient was seen and examined in the preoperative area. All preoperative protocols were followed. Informed consent was obtained risks and benefits of the procedure were discussed at length. Risks including bleeding infection damage to the surrounding tissue and risk of reoperation were discussed with the patient. Risk of anesthesia up to and including was a discussed with the patient. These are outlined in the risk review. They were willing to accept these risks and all of the risks of surgery. The patient was given a weight- based dose of antibiotics in the form of vancomycin weight-based dose IVPB. The patient was seen and evaluated by the anesthesia team who deemed them fit for surgery. The site was marked, the patient was willing to proceed with the procedure. The patient was transferred to the operative suite by the Department of anesthesia. They were then drifted off to sleep by the department anesthesia GETA was performed. The patient tolerated this well. Leone catheter was placed by nursing staff, atraumatically. Once confirmation of lines and ventilation the patient was transferred to a prone Kirby Holden table very carefully. All bony prominences including wrists, elbows, axilla, chest, hips, and thighs, and feet were padded very well. Special attention was paid to the genitalia and these were padded accordingly. SCDs were placed on bilateral lower extremities and were connected. Arms were well padded and placed on arm boards up and out in the 90/90 position. Once in position, again we confirmed good ventilation capabilities and that lines were running appropriately. The patient's lumbar spine was then exposed. 1010s were placed outlining the incision site. Standard alcohol was used to clean the incision site and allowed to dry. C-arm was used to biomark the patient and confirm level for incision which was marked with a skin marker. Operative briefing was performed with all teams and everyone in agreement to proceed. The patient was then prepped and draped in a normal sterile fashion. Timeout was then performed and all parties were in agreement with the procedure to be performed. Skin incision was made over the. See bowel marked area after local anesthetic of cortical percent Marcaine without epinephrine was placed within the skin remote to the incision site. Dissection was taken down to the lumbar fascia which was identified and cleaned with a Oliver. Midline fasciotomy was made and subperiosteal dissection taken over the lamina of L1 through S1 to the facet joints. We took care to maintain the facet joints and capsules as much as possible. We removed scar tissue from the inferior portion of each facet capsule. Once exposure was completed we irrigated and confirmed levels with lateral fluoroscopy. A Keene 4 was placed on the pars of L3-L4 and this was confirmed on x-ray. Now that when you are levels we are able to perform our decompression. High-speed bur was used to make laminotomy sites on the left- hand side first from L1 down to S1. This was then repeated on the right-hand side. We then used a 20 up-biting curettes to release the ligamentum flavum at each level. Once this was released you are able to easily remove the lamina from L1 to effectively S1. Once the lamina was removed the dura was visualized and was intact. We then formed clean up at each level with continued medial facetectomy and foraminotomies at each level using a 4 Kerrison we decompressed the posterior lateral gutters of the exuberant ligamentum flavum that had formed in these areas as well as foraminotomies. Kerrison rongeur was carefully used to clean each edge as well as these areas. We made sure that there were no sharp edges of bone. Exposed bone edges were covered with bone wax throughout. FloSeal as well as patties were used for hemostasis during our decompression. Once the decompression was complete we irrigated thoroughly the wound with 9 L of normal sterile saline. We took final intraoperative fluoroscopy shots to con firm levels of decompression with a Comstock and Keene 4 at the bottom and top of the laminectomy sites respectively. We then inspected the dura. Valsalva maneuver was performed to 40 mmHg and there was no leaks. We then covered the dura with Surgicel. A drain was placed deep to the fascia. 2 g of vancomycin powder were placed within the wound. We then performed closure in a layered fashion. Fascia was closed with 0 PDS in a [id number] fashion followed by deep subcutaneous tissue with 0 PDS. Superficial subcutaneous tissues closed with 2-0 PDS. 3-0 strata fix Monocryl was placed in the subcuticular region. This approximated the wound edges very well. The wound was then cleaned with alcohol and dried and excess and tape was placed over the wound followed by glue. The glue was allowed to dry completely and then the wound was dressed with Telfa 4 x 4's and Tegaderms. The drain was sewn into place with a 2-0 PDS a drain sponge and Tegaderm were placed over the drain as dressing. The patient was transferred back to his hospital bed atraumatically. Drain continued to hold suction and were in good position. Patient was then awakened and extubated by the department of anesthesia having tolerated the procedure very well with no complications. He was transferred to the postoperative care unit in stable condition.
[2021-01-06] MEDS: ACETAMINOPHEN TAB 325 MG TAB PO SCH (17:41)
[2021-01-06 17:59] LABS: Glucose,Whole Blood 216 mg/dL (75-99)
--- NOTE | 2021-01-06 19:28 | P.CONS ---
History of Present Illness - Reason for Consult Consult date: 01/06/21 - History of Present Illness The patient is 76-year-old male with a PMH of Robert barnett on Coumadin, hypertension, HLD, type II DM who was admitted for an elective laminectomy and decompression for spinal stenosis. The patient underwent the procedure earlier today without any immediate postoperative competitions and was seen postoperatively on the surgical unit. He reported excellent control of his pain, currently at 2 out of 10. He denied any additional acute complaints. He denied chest discomfort, shortness of breath, fever, chills, nausea, vomiting. He reports compliance with his medications at home. Review of systems: Pertinent positives and negatives as discussed in HPI, a complete review of systems was performed and all other systems are negative. Physical examination: General: non toxic, no distress, appears at stated age, overweight Derm: no unusual rashes/lesions no unusual ecchymoses, warm, dry Head: atraumatic, normocephalic, symmetric Eyes: EOMI, no lid lag, anicteric sclera, pupils equal round reactive to light ENT: Nose and ears atraumatic, no thrush, no pharyngeal erythema Neck: No thyromegaly, no cervical lymphadenopathy, trachea midline, supple Mouth: no lip lesion, mucus membranes moist Cardiovascular: S1S2 reg, no murmur, positive posterior tibial pulse bilateral, no edema, capillary refill less than 2 seconds Lungs: CTA bilateral, no rhonchi, no rales , no accessory muscle use Abdominal: soft, nontender to palpation, no guarding, no appreciable organomegaly, normal bowel sounds Ext: no gross muscle atrophy, no gross focal deficits, no contractures, Neuro: CN II-XI grossly intact, light touch intact all 4 extremities, finger to nose within normal limits, Psych: Alert, oriented, appropriate affect Assessment/plan Chronic conditions: Type 2 DM, hypertension, HLD A. fib -Continue with home medications -Defer resumption of Coumadin and Lovenox to the primary surgical service Status post decompression and laminectomy -Defer management including pain control to the primary surgical service Past Medical History Past Medical History: Atrial Fibrillation, Chest Pain / Angina, Diabetes Mellitus, Hearing Disorder / Deafness, Hyperlipidemia, Musculoskeletal Disorder, Osteoarthritis (OA), Pneumonia, Prostate Disorder Additional Past Medical History / Comment(s): Pyloric stenosis as infant. Elev PSA, BPH, biopsy nl. Severe fall in his 30's w/ poss injury to back. Chronic lower back pain NT BLE. History of Any Multi-Drug Resistant Organisms: None Reported Past Surgical History: Adenoidectomy, Cholecystectomy, Heart Catheterization, Orthopedic Surgery, Tonsillectomy Additional Past Surgical History / Comment(s): "Aortic Valve"-Mechanical 2012. Pyloric Valve surgery as . Rt Total Knee surgery. Rt Wrist surgery. Total Lt Knee surgery 2019. Pain injections back x2. Past Anesthesia/Blood Transfusion Reactions: Previous Problems w/ Anesthesia Additional Past Anesthesia/Blood Transfusion Reaction / Comm: Problems voiding post-op, needed a catheter. Smoking Status: Former smoker - Past Family History Father Family Medical History: Diabetes Mellitus, Myocardial Infarction (CO) Additional Family Medical History / Comment(s): (2 brothers had CAD, CHF) Mother Family Medical History: Cancer Additional Family Medical History / Comment(s): PANCREATIC. Medications and Allergies Home Medications Medication Instructions Recorded Confirmed Type Atorvastatin [Lipitor] 40 mg PO DAILY 03/26/16 01/01/21 History Ferrous Sulfate [Feosol] 325 mg PO DAILY 03/26/16 01/01/21 History Furosemide [Lasix] 40 mg PO DAILY 03/26/16 01/01/21 History Niacin 500 mg PO DAILY 03/26/16 01/01/21 History Warfarin [Coumadin] 7.5 mg PO DAILY 03/26/16 01/01/21 History atenoloL [Atenolol] 50 mg PO BID 03/26/16 01/01/21 History glipiZIDE [Glucotrol] 5 mg PO BID 03/26/16 01/01/21 History lisinopriL [Lisinopril] 2.5 mg PO DAILY 03/26/16 01/01/21 History metFORMIN HCL 1,000 mg PO BID 03/26/16 01/01/21 History Tamsulosin [Flomax] 0.4 mg PO DAILY 12/06/19 01/01/21 History Magnesium 400 mg PO DAILY 06/25/20 01/01/21 History Docusate Sodium [Dok] 100 mg PO HS 01/01/21 01/01/21 History Enoxaparin [Lovenox] 40 mg SQ DAILY 01/01/21 01/01/21 History Allergies Allergy/AdvReac Type Severity Reaction Status Date / Time Penicillins Allergy Unknown Swelling Verified 01/01/21 16:09 Sulfa (Sulfonamide Allergy Unknown Unknown Verified 01/01/21 16:09 Antibiotics) Physical Exam Vitals: Vital Signs Temp Pulse Resp BP BP BP Pulse Ox 01/06/21 17:30 99 100/62 01/06/21 17:00 82 101/66 01/06/21 16:15 78 122/67 01/06/21 15:45 72 136/72 01/06/21 15:15 82 119/74 01/06/21 15:00 79 119/72 01/06/21 14:45 86 119/70 01/06/21 14:30 76 110/69 01/06/21 14:15 76 121/72 01/06/21 14:00 98.0 F 94 126/74 01/06/21 13:00 77 16 111/58 100 01/06/21 12:45 72 16 117/58 100 01/06/21 12:30 74 14 134/61 100 01/06/21 12:16 97.1 F L 76 10 L 113/56 100 01/06/21 06:14 98 F 78 18 146/78 95 Intake and Output 01/06/21 01/06/21 01/06/21 06:59 14:59 22:59 Intake Total 250 2000 100 Output Total 410 500 Balance 250 1590 -400 Intake: IV 250 2000 Oral 100 Output: Urine 210 500 Estimated Blood Loss 200 Other: Weight 95.5 kg Results CBC & Chem 7: 01/07/21 05:49 Labs: Abnormal Lab Results - Last 24 Hours (Table) 01/06/21 01/06/21 01/06/21 Range/Units 06:27 12:33 17:58 POC Glucose (mg/dL) 124 H 243 H 216 H (75-99) mg/dL
[2021-01-06 21:24] LABS: Glucose,Whole Blood 199 mg/dL (75-99)
[2021-01-06] MEDS: atenoloL 50 MG TAB PO SCH (21:32)
[2021-01-06] MEDS: DOCUSATE 100 MG CAP PO SCH (21:32)
[2021-01-06] MEDS: GABAPENTIN 300 MG CAP PO SCH (21:32)
[2021-01-06] MEDS: INSULIN ASPART (NovoLOG) 100 UNIT/ML VIAL SQ SCH (23:09)
[2021-01-06] MEDS: LACTATED RINGERS 1,000 ML IV SCH (23:09)
[2021-01-07] MEDS: ACETAMINOPHEN TAB 325 MG TAB PO SCH ×5 (00:30→23:38)
[2021-01-07 06:21] LABS: Basophils # (A) 0.1 k/uL (0-0.2); Basophils % (A) 1 %; Eosinophils # (A) 0.1 k/uL (0-0.7); Eosinophils % (A) 1 %; HCT 35.2 % (39.0-53.0); HGB 11.4 gm/dL (13.0-17.5); Lymphocytes # (A) 1.2 k/uL (1.0-4.8); Lymphocytes % (A) 13 %; MCH 29.8 pg (25.0-35.0); MCHC 32.5 g/dL (31.0-37.0); MCV 91.8 fL (80.0-100.0); Mean Platelet Volume 9.4; Monocytes # (A) 0.8 k/uL (0-1.0); Monocytes % (A) 8 %; Neutrophils # (A) 7.1 k/uL (1.3-7.7); Neutrophils % (A) 76 %; Platelet Count 150 k/uL (150-450); RBC 3.84 m/uL (4.30-5.90); RDW 13.4 % (11.5-15.5); WBC 9.3 k/uL (3.8-10.6)
[2021-01-07 07:11] LABS: Glucose,Whole Blood 189 mg/dL (75-99)
[2021-01-07] MEDS ORDERED: VANCOMYCIN IV PER PHARMACY 1 EACH MISC MISCELLANE PRN (08:03)
[2021-01-07] MEDS: ATORVASTATIN 40 MG TAB PO SCH (08:09)
[2021-01-07] MEDS: FUROSEMIDE 40 MG TAB PO SCH (08:09)
[2021-01-07] MEDS: INSULIN ASPART (NovoLOG) 100 UNIT/ML VIAL SQ SCH ×4 (08:09→21:02)
[2021-01-07] MEDS: GABAPENTIN 300 MG CAP PO SCH ×2 (08:09→21:03)
--- NOTE | 2021-01-07 08:33 | P.PN ---
Progress Note - Text Progress Note Date: 01/07/21 [facility] Progress Note DOS: 01/06/2021 POD:1 SUBJECTIVE: Patient seen and examined is doing fairly well he is a sitting up in bed. He complains of some discomfort in his back however it is tolerable at this time the pain medication is helping. He has not been out of bed however since surgery. He denies any fevers chills shortness of breath or chest pain at this time. He still complains of some numbness and tingling in his legs that was present before surgery and has not changed significantly. He states that his legs do not feel his heavy however he feels like he could walk better. Denies any other symptoms no bowel bladder issues Nair is in place with good output. OBJECTIVE: Vital signs stable General: AOX3, NAD Incision CDI Drain: 50 mL in drink currently was done 3 times last night patient states Motor Exam: RUE: 5/5 SA, EF, EE, WF, WE, Intrinsic, Sample Carrier LUE: 5/5 SA, EF, EE, WF, WE, Intrinsic, Sample Carrier RLE: 4+/5 HF, KE, KF, DF, PF, EHL, FHL LLE: 4+/5 HF, KE, KF, DF, PF, EHL, FH Reflexes: 2/4 in UE and LE b/l SILT C5-T1 and L2-S1 Dermatomal deficit: L5-S1 +distal pulses palpable Negative hoffmans b/l Negative babinski b/l No clonus ASSESSMENT: 76-year-old male postop day 1 L1 to S1 decompressive laminectomy PLAN: -Appreciate health care consultant and team management. -Activity: Ambulate QID, OOB all meals, up and about, limit lifting bending twisting to less than 5 lbs. Use walker or cane if needed for stability. -Daily PT/OT, increase ambulation strength and balance. -Brace when up and about, not needed in bed or chair -Pain control: Adequate at this time -Meds: reviewed, added Flomax 0.4 mg with breakfast, vancomycin postop pharmacy to dose -GI ppx: senna, Miralax -DC nair when up and about, bedside commode if needed -DVT PPX: Bridge with Lovenox back to Coumadin -Hygiene: Shower today. Maintain dressing clean and dry. Meticulous cleaning after BMs away from incision site -Drains: Maintain for now. Record output -Encourage IS 10x/hr -Dispo: Pending
[2021-01-07] MEDS ORDERED: VANCOMYCIN 1,500 MG in SODIUM CHLORIDE 0.9% 250 ML IVPB ONE (09:00)
[2021-01-07] MEDS ORDERED: ENOXAPARIN 30 MG/0.3 ML SYRINGE SQ SCH (09:30)
[2021-01-07 09:45] LABS: Anion Gap 9.7 mmol/L (4.00-12.00); BUN/Creat Ratio 18.29 Ratio (12.00-20.00); Blood Urea Nitrogen 12.8 mg/dL (9.0-27.0); Calcium 8.7 mg/dL (8.7-10.3); Carbon Dioxide 25.3 mmol/L (21.6-31.8); Non-African American GFR(CKD) 92.3 (60.0-200.0); Potassium 4.2 mmol/L (3.5-5.5)
[2021-01-07] MEDS: TAMSULOSIN 0.4 MG CAP.ER.24H PO SCH (10:01)
[2021-01-07] MEDS: atenoloL 50 MG TAB PO SCH ×2 (10:13→21:03)
[2021-01-07] MEDS: ENOXAPARIN 40 MG/0.4 ML SYRINGE SQ SCH (10:14)
[2021-01-07] MEDS: LACTATED RINGERS 1,000 ML IV SCH (10:28)
[2021-01-07 12:14] LABS: Glucose,Whole Blood 229 mg/dL (75-99)
[2021-01-07] MEDS: CYCLOBENZAPRINE 5 MG TAB PO PRN (14:33)
--- NOTE | 2021-01-07 15:52 | P.PN ---
Subjective Progress Note Date: 01/07/21 The patient was seen and examined at the bedside on 01/07. He reported ongoing lower back pain, currently at a 3 out of 10. He denied any additional complaints. Denied fever, chills, chest pain, shortness of breath. The scope Examination: General: Non-toxic, in no acute distress, appears stated age, normal weight HEENT: NC/AT, anicteric sclerae, moist conjunctiva, no lid-lag, PERRLA Cardiovascular: S1/S2 wnl, no murmurs, rubs, or gallops Lungs: Clear to auscultation, normal respiratory effort, no accessory muscle use Abdominal: Soft, non-tender, non-distended, no guarding, rebound, or rigidity Skin: Warm, dry Extremities: No edema or contractures Psychiatric: Alert and oriented to person, place and time, appropriate affect Neuro: CN II-XII grossly intact, Sensation to light touch grossly intact throughout Assessment/plan Chronic conditions: Type II DM, hypertension, hyperlipidemia, A. fib -Anti-coagulation with Coumadin and Lovenox currently being managed by the surgical service -Continue with remaining home medications -Insulin lispro sliding scale with blood glucose monitoring -Hold oral hypoglycemics Status post deep decompression and laminectomy -Defer management including pain control to the primary surgical service Objective - Vital Signs Vital signs: Vital Signs Temp 98.3 F 01/07/21 11:43 Pulse 70 01/07/21 11:43 Resp 18 01/07/21 11:43 BP 109/66 01/07/21 11:43 Pulse Ox 97 01/07/21 11:43 Intake & Output 01/06/21 01/07/21 01/07/21 18:59 06:59 18:59 Intake Total 2100 100 250 Output Total 299 739 6930 Balance 1190 -500 -1350 Intake: IV 2000 Intake, IV Titration 250 Amount Vancomycin 1,500 mg In 250 Sodium Chloride 0.9% 250 ml @ 125 mls/hr IVPB Q12HR [facility] Rx#:[id number] Oral 100 100 Output: Drainage 200 200 Back 200 200 Urine 123 439 3027 Estimated Blood Loss 200 Other: Voiding Method Indwelling Catheter Indwelling Catheter - Labs CBC & Chem 7: 01/07/21 05:49 01/07/21 05:49 Labs: Abnormal Lab Results - Last 24 Hours (Table) 01/06/21 01/06/21 01/07/21 Range/Units 17:58 21:20 05:49 RBC 3.84 L (4.30-5.90) m/uL Hgb 11.4 L (13.0-17.5) gm/dL Hct 35.2 L (39.0-53.0) % Sodium (135-145) mmol/L Glucose (70-110) mg/dL POC Glucose (mg/dL) 216 H 199 H (75-99) mg/dL 01/07/21 01/07/21 01/07/21 Range/Units 05:49 07:04 12:10 RBC (4.30-5.90) m/uL Hgb (13.0-17.5) gm/dL Hct (39.0-53.0) % Sodium 134 L (135-145) mmol/L Glucose 221 H (70-110) mg/dL POC Glucose (mg/dL) 189 H 229 H (75-99) mg/dL
[2021-01-07 17:24] LABS: Glucose,Whole Blood 292 mg/dL (75-99)
[2021-01-07] MEDS: WARFARIN 7.5 MG TAB PO SCH (18:12)
[2021-01-07 20:18] LABS: Glucose,Whole Blood 292 mg/dL (75-99)
[2021-01-07] MEDS: VANCOMYCIN 1,500 MG in SODIUM CHLORIDE 0.9% 250 ML IVPB SCH (21:03)
[2021-01-07] MEDS: DOCUSATE 100 MG CAP PO SCH (21:03)
[2021-01-08] MEDS: ACETAMINOPHEN TAB 325 MG TAB PO SCH ×3 (05:34→18:00)
[2021-01-08 06:59] LABS: INR 1.1 (<1.2); Prothrombin Time 11.3 sec (9.0-12.0)
[2021-01-08] MEDS: LACTATED RINGERS 1,000 ML IV SCH (07:21)
[2021-01-08 07:31] LABS: Glucose,Whole Blood 164 mg/dL (75-99)
[2021-01-08] MEDS: ATORVASTATIN 40 MG TAB PO SCH (08:45)
[2021-01-08] MEDS: VANCOMYCIN 1,500 MG in SODIUM CHLORIDE 0.9% 250 ML IVPB SCH ×2 (08:45→21:27)
[2021-01-08] MEDS: TAMSULOSIN 0.4 MG CAP.ER.24H PO SCH (08:45)
[2021-01-08] MEDS: GABAPENTIN 300 MG CAP PO SCH ×2 (08:45→21:27)
[2021-01-08] MEDS: atenoloL 50 MG TAB PO SCH ×2 (08:45→21:27)
[2021-01-08] MEDS: ENOXAPARIN 40 MG/0.4 ML SYRINGE SQ SCH (08:45)
[2021-01-08] MEDS: FUROSEMIDE 40 MG TAB PO SCH (08:46)
[2021-01-08] MEDS: INSULIN ASPART (NovoLOG) 100 UNIT/ML VIAL SQ SCH ×4 (08:58→21:27)
--- NOTE | 2021-01-08 11:03 | P.PN ---
Subjective Progress Note Date: 01/08/21 Principal diagnosis: Status post L1-L5 decompression with laminectomy Patient was evaluated today at bedside, Dr. South was also available. Patient was resting in his hospital chair. He was able to get up today with physical therapy. He has been utilizing the brace along with a walker. He states that it is feeling better getting up out of bed. He does note some weakn ess and difficulty with moving around in bed and initiating a scan, but once he is on his feet he feels a lot better. The urinary catheter was removed, he has had difficulty with urination since then. Patient currently denies any headaches, lightheadedness, chest pain or shortness of breath at this time. He denies any genital/cranial numbness at this time. Denies any loss of bowel or bladder function at this time. Objective - Vital Signs Vital signs: Vital Signs Temp 98.2 F 01/08/21 04:53 Pulse 84 01/08/21 04:53 Resp 16 01/08/21 04:53 BP 139/74 01/08/21 04:53 Pulse Ox 96 01/08/21 04:53 Intake & Output 01/07/21 01/08/21 01/08/21 18:59 06:59 18:59 Intake Total 250 Output Total 3100 225 Balance -2850 -225 Intake: Intake, IV Titration 250 Amount Vancomycin 1,500 mg In 250 Sodium Chloride 0.9% 250 ml @ 125 mls/hr IVPB Q12HR [facility] Rx#:[id number] Output: Drainage 300 Back 300 Urine 2800 225 Other: Voiding Method Indwelling Catheter Urinal # Voids 1 2 - Exam Gen: AOx3, NAD VSS stable at this time Integument: Postoperative bandage is in good position and condition, it is clean and intact. Drain site is also intact, the drain is still in place putting out moderate bloody serosanguineous drainage. Palpation: Mild tenderness with palpation along the midline and paraspinal region of the incision, he demonstrates no acute tenderness in the cervical or thoracic spine ROM: Full range of motion in all major muscle groups of the bilateral upper and lower extremities Sensory Exam: Senory exam to light touch is intact C5-T1 Senosry exam to light touch is intact L2-S1 Motor: 5/5 strength is appreciated in bilateral upper extremities with shoulder elevati on, abduction, elbow extension, elbow flexion, wrist extension, wrist flexion, finger intrinsics 4+/5 strength is patient in the bilateral lower extremities with hip flexion, knee flexion, knee extension, plantar flexion, dorsiflexion, EHL, FHL Reflexes: 2/4 in all UE and LE Negative Fernandez bilaterally Negative Babinski bilaterally Negative clonus bilaterally - Labs CBC & Chem 7: 01/07/21 05:49 01/07/21 05:49 Labs: Abnormal Lab Results - Last 24 Hours (Table) 01/07/21 01/07/21 01/07/21 Range/Units 12:10 17:16 20:17 POC Glucose (mg/dL) 229 H 292 H 292 H (75-99) mg/dL 01/08/21 Range/Units 07:24 POC Glucose (mg/dL) 164 H (75-99) mg/dL Assessment and Plan Assessment: Postoperative day #2 status post L1-L5 decompression laminectomy Difficulty with urination Plan: Pain control, continue with current medication, this to include Casco as needed, patient also has Flexeril and Gabapentin ordered GI and DVT prophylaxis, continue Lovenox subcu daily and Coumadin until INR is therapeutic Drain will be left in place this time, possible removal on 01/09/2021 Continue with PT/OT, recommend use of walker all times with ambulation Leave current dressing in place at this time, will change prior to discharge Urology consult has been placed, appreciated recommendations Medical recommendations Discharge planning: Will reassess on 01/09/2021, possible discharge if not hopefully by 01/11/2020 Time with Patient: Less than 30
[2021-01-08 12:36] LABS: Glucose,Whole Blood 248 mg/dL (75-99)
[2021-01-08] MEDS: CYCLOBENZAPRINE 5 MG TAB PO PRN (13:07)
[2021-01-08 17:34] LABS: Glucose,Whole Blood 200 mg/dL (75-99)
[2021-01-08] MEDS: WARFARIN 7.5 MG TAB PO SCH (18:00)
[2021-01-08 20:33] LABS: Glucose,Whole Blood 181 mg/dL (75-99)
--- NOTE | 2021-01-08 20:42 | P.PN ---
Subjective Progress Note Date: 01/08/21 Principal diagnosis: back pain Patient is a 76-year-old male with diabetes mellitus type 2, hypertension, and dyslipidemia who presented for L1 through L5 decompression with laminectomy. Patient seen and examined at bedside. He reports feeling as though his bladder is distended and having difficulty starting his stream. He states he has had difficulty with urinary retention since undergoing his prostatectomy and has been on Flomax. He has not seen a urologist in years. He denies any significant hematuria, states he did pass a clot initially limited got a Leone. Denies any chest pain or shortness of breath. Back pain fairly well controlled. Has been up and moving. General: non toxic, mild distress, appears at stated age Derm: warm, dry Head: atraumatic, normocephalic, symmetric Eyes: EOMI, no lid lag, anicteric sclera Mouth: no lip lesion, mucus membranes moist Cardiovascular: S1S2 reg, no murmur, positive posterior tibial pulse bilateral, Lungs: CTA bilateral, no rhonchi, no rales , no accessory muscle use Abdominal: soft, abdominal distention with pain over suprapubic area, no guarding, no appreciable organomegaly Ext: no gross muscle atrophy, no edema, no contractures -Drains in place with sanguinous drainage Neuro: CN II-XI grossly intact, no focal neuro deficits Psych: Alert, oriented, appropriate affect 76-year-old gentleman status post L1 through 5 laminectomy and decompression Urinary retention -Patient was straight By nursing for 900 -Continue the Flomax -Consult urology -Continue with post void residuals if requires greater than to straight cath we'll reinsert Leone catheter. Anemia -Chronic -Appears at baseline -Outpatient workup Diabetes mellitus type 2 -Sliding-scale insulin -Hold metformin and Glucotrol -Follows closely with his primary care physician. He believes his last hemoglobin A1c was around 7.5. He states he has only ever had one hemoglobin A1c greater than 8 but was several years ago. Paroxysmal atrial fibrillation -Patient has been cleared to resume Coumadin and Lovenox with bridging per orthospine -Pharmacy following Coumadin levels Chronic: Hypertension, dyslipidemia Objective - Vital Signs Vital signs: Vital Signs Temp 99 F 01/08/21 12:42 Pulse 94 01/08/21 12:42 Resp 18 01/08/21 12:42 BP 152/81 01/08/21 12:42 Pulse Ox 98 01/08/21 12:42 Intake & Output 01/08/21 01/08/21 01/09/21 06:59 18:59 06:59 Output Total 225 0 Balance - -1939 Output: Drainage 40 Back 40 Urine 225 1900 Straight 0 Other: Voiding Method Urinal # Voids 2 - Labs CBC & Chem 7: 01/07/21 05:49 01/07/21 05:49 Labs: Abnormal Lab Results - Last 24 Hours (Table) 01/08/21 01/08/21 01/08/21 Range/Units 07:24 12:33 17:20 POC Glucose (mg/dL) 164 H 248 H 200 H (75-99) mg/dL 01/08/21 Range/Units 20:25 POC Glucose (mg/dL) 181 H (75-99) mg/dL
[2021-01-08] MEDS: DOCUSATE 100 MG CAP PO SCH (21:27)
--- NOTE | 2021-01-08 23:14 | PN ---
PROGRESS NOTE DATE OF SERVICE: 01/07/2021 Fbcmmvm-jgxv-iugc-old white male. Discussed with him going back on his home Coumadin dose. His pain is under good control. CARDIOVASCULAR: S1, S2. LUNGS: Clear. GI: Soft. HEMATOLOGY: Negative Homans. ASSESSMENT: 1. Status post lumbar laminectomy. 2. Diabetes mellitus. 3. History of aortic valve replacement. 4. Coumadin therapy. Prognosis guarded. Follow up in next 24 to 48 hours for possible discharge. MMODL / IJN: [id number] /
--- NOTE | 2021-01-08 23:25 | PN ---
PROGRESS NOTE This 76-year-old white male is having difficulty with urination. Otherwise his pain is better. He is up moving, sitting up in a chair. He takes Flomax at home. We may increase the dose, as he is having difficulty urinating. Wait for [facility]. He may have to take a Leone home, not sure. Will restart his Coumadin. He remains on Lovenox. Prognosis guarded. Follow up in next 24 to 48 hours for possible discharge after we figure out this urinary retention issue. MMODL / IJN: [id number] /
[2021-01-09] MEDS: ACETAMINOPHEN TAB 325 MG TAB PO SCH ×5 (02:14→23:33)
[2021-01-09] MEDS: CYCLOBENZAPRINE 5 MG TAB PO PRN (04:06)
[2021-01-09] MEDS: LACTATED RINGERS 1,000 ML IV SCH (06:18)
[2021-01-09 07:25] LABS: Glucose,Whole Blood 174 mg/dL (75-99)
[2021-01-09] MEDS ORDERED: VANCOMYCIN TROUGH DUE 1 EACH MISC MISCELLANE ONE (08:00)
[2021-01-09] MEDS: INSULIN ASPART (NovoLOG) 100 UNIT/ML VIAL SQ SCH ×4 (08:41→20:55)
[2021-01-09] MEDS: GABAPENTIN 300 MG CAP PO SCH ×2 (08:41→20:07)
[2021-01-09] MEDS: atenoloL 50 MG TAB PO SCH ×2 (08:41→20:06)
[2021-01-09] MEDS: TAMSULOSIN 0.4 MG CAP.ER.24H PO SCH ×2 (08:41→22:17)
[2021-01-09] MEDS: FUROSEMIDE 40 MG TAB PO SCH (08:41)
[2021-01-09] MEDS: ATORVASTATIN 40 MG TAB PO SCH (08:41)
[2021-01-09] MEDS: ENOXAPARIN 40 MG/0.4 ML SYRINGE SQ SCH (08:41)
[2021-01-09 09:20] LABS: Basophils % (A) 0 %; Eosinophils # (A) 0.4 k/uL (0-0.7); Eosinophils % (A) 5 %; HCT 38.9 % (39.0-53.0); HGB 12.5 gm/dL (13.0-17.5); Lymphocytes # (A) 1.3 k/uL (1.0-4.8); Lymphocytes % (A) 14 %; MCH 29.6 pg (25.0-35.0); MCHC 32.2 g/dL (31.0-37.0); MCV 91.8 fL (80.0-100.0); Mean Platelet Volume 8.8; Monocytes # (A) 0.6 k/uL (0-1.0); Monocytes % (A) 7 %; Neutrophils # (A) 6.7 k/uL (1.3-7.7); Neutrophils % (A) 73 %; Platelet Count 182 k/uL (150-450); RBC 4.24 m/uL (4.30-5.90); RDW 13.2 % (11.5-15.5); WBC 9.2 k/uL (3.8-10.6)
[2021-01-09 09:33] LABS: ALT 25 U/L (4-49); AST 26 U/L (17-59); African American GFR (CKD) >90 (>60 ml/min/1.73 sqM); Albumin 3.8 g/dL (3.5-5.0); Albumin/Globulin Ratio 1.3; Alkaline Phosphatase 59 U/L (38-126); Anion Gap 9 mmol/L; Blood Urea Nitrogen 11 mg/dL (9-20); Calcium 9.1 mg/dL (8.4-10.2); Carbon Dioxide 26 mmol/L (22-30); Chloride 98 mmol/L (98-107); Globulin 2.9 g/dL; Glucose 179 mg/dL (74-99); Non-African American GFR(CKD) >90 (>60 ml/min/1.73 sqM); Sodium 133 mmol/L (137-145); Total Bilirubin 0.8 mg/dL (0.2-1.3); Total Protein 6.7 g/dL (6.3-8.2)
[2021-01-09 09:38] LABS: INR 1.1 (<1.2); Prothrombin Time 11.7 sec (9.0-12.0)
[2021-01-09] MEDS: VANCOMYCIN 1,500 MG in SODIUM CHLORIDE 0.9% 250 ML IVPB SCH ×2 (11:19→21:02)
--- NOTE | 2021-01-09 13:02 | P.PN ---
Subjective Progress Note Date: 01/09/21 Principal diagnosis: Status post L1-L5 decompression with laminectomy Patient was evaluated today at bedside. Patient was resting in his hospital bed. Urinary catheter was replaced yesterday due to retention, awaiting urology recommendations. He continues to notice improvement with both the discomfort and weakness in the lower extremities. Patient currently denies any headaches, lightheadedness, chest pain or shortness of breath at this time. He denies any genital/perineal numbness at this time. Denies any loss of bowel or bladder function at this time. Objective - Vital Signs Vital signs: Vital Signs Temp 98.7 F 01/09/21 12:02 Pulse 77 01/09/21 12:02 Resp 17 01/09/21 12:02 BP 92/60 01/09/21 12:02 Pulse Ox 95 01/09/21 12:02 Intake & Output 01/08/21 01/09/21 01/09/21 18:59 06:59 18:59 Intake Total 500 Output Total 1940 725 Balance -1939 - Intake: Oral 500 Output: Drainage 40 25 Back 40 25 Urine 1900 700 Straight 1900 Other: Voiding Method Urinal Indwelling Catheter # Bowel Movements 1 - Exam Gen: AOx3, NAD VSS stable at this time Integument: Drain was removed today bedside, postoperative bandage is also change. Incision is clean, dry and intact. Palpation: Mild tenderness with palpation along the midline and paraspinal region of the incision, he demonstrates no acute tenderness in the cervical or thoracic spine ROM: Full range of motion in all major muscle groups of the bilateral upper and lower extremities Sensory Exam: Senory exam to light touch is intact C5-T1 Senosry exam to light touch is intact L2-S1 Motor: 5/5 strength is appreciated in bilateral upper extremities with shoulder elevation, abduction, elbow extension, elbow flexion, wrist extension, wrist flexion, finger intrinsics 4+/5 strength is patient in the bilateral lower extremities with hip flexion, knee flexion, knee extension, plantar flexion, dorsiflexion, EHL, FHL Reflexes: 2/4 in all UE and LE Negative Fernandez bilaterally Negative Babinski bilaterally Negative clonus bilaterally - Labs CBC & Chem 7: 01/09/21 08:52 01/09/21 08:52 Labs: Abnormal Lab Results - Last 24 Hours (Table) 10/01/08/21 01/09/21 Range/Units 17:20 20:25 07:19 RBC (4.30-5.90) m/uL Hgb (13.0-17.5) gm/dL Hct (39.0-53.0) % Sodium (137-145) mmol/L Creatinine (0.66-1.25) mg/dL Glucose (74-99) mg/dL POC Glucose (mg/dL) 200 H 181 H 174 H (75-99) mg/dL 01/09/21 01/09/21 Range/Units 08:52 08:52 RBC 4.24 L (4.30-5.90) m/uL Hgb 12.5 L (13.0-17.5) gm/dL Hct 38.9 L (39.0-53.0) % Sodium 133 L (137-145) mmol/L Creatinine 0.55 L (0.66-1.25) mg/dL Glucose 179 H (74-99) mg/dL POC Glucose (mg/dL) (75-99) mg/dL Assessment and Plan Assessment: Postoperative day #3 status post L1-L5 decompression laminectomy Urinary retention Plan: Pain control, continue with current medication, this to include [place] as needed, patient also has Flexeril and Gabapentin ordered GI and DVT prophylaxis, continue Lovenox subcu daily and Coumadin until INR is therapeutic Dressing changes: Leave current dressing in place over the next few days, we will reassess Continue with PT/OT, recommend use of walker all times with ambulation Leave current dressing in place at this time, will change prior to discharge Medical recommendations Await urology recommendations Discharge planning: Possible discharge on 01/10/2021, we will reassess
[2021-01-09 13:12] LABS: Glucose,Whole Blood 268 mg/dL (75-99)
[2021-01-09 17:46] LABS: Glucose,Whole Blood 268 mg/dL (75-99)
[2021-01-09] MEDS ORDERED: WARFARIN 10 MG TAB PO ONE (18:00)
[2021-01-09] MEDS: DOCUSATE 100 MG CAP PO SCH ×2 (20:06→20:08)
[2021-01-09 20:11] LABS: Glucose,Whole Blood 322 mg/dL (75-99)
[2021-01-09] MEDS: metFORMIN 500 MG TAB PO SCH (20:54)
[2021-01-09] MEDS: glipiZIDE 5 MG TAB PO SCH (20:54)
--- NOTE | 2021-01-09 22:44 | PN ---
PROGRESS NOTE Akhil Grewal is having trouble with urinary retention. He has got the Leone back in place. We are going to increase his Flomax overnight 0.4 b.i.d. and try to get it out prior to him going home tomorrow. Pain is under under better control. CARDIOVASCULAR: S1, S2. LUNGS: Clear. GI: Soft. HEMATOLOGY: Negative Homans. ASSESSMENT: 1. Benign prostatic hypertrophy. 2. Urinary retention. 3. Diabetes mellitus. 4. Diastolic congestive heart failure. 5. Chronic obstructive pulmonary disease. 6. Status post lumbar radiculopathy. Continue current treatments. Follow up in next 24 to 48 hours. MMODL / IJN: [id number] /
[2021-01-10] MEDS: ACETAMINOPHEN TAB 325 MG TAB PO SCH ×4 (05:40→23:31)
[2021-01-10] MEDS: LACTATED RINGERS 1,000 ML IV SCH (05:42)
[2021-01-10 07:28] LABS: Glucose,Whole Blood 160 mg/dL (75-99)
[2021-01-10] MEDS: metFORMIN 500 MG TAB PO SCH ×2 (07:53→20:14)
[2021-01-10] MEDS: ENOXAPARIN 40 MG/0.4 ML SYRINGE SQ SCH (07:53)
[2021-01-10] MEDS: GABAPENTIN 300 MG CAP PO SCH ×2 (07:54→20:14)
[2021-01-10] MEDS: FUROSEMIDE 40 MG TAB PO SCH (07:54)
[2021-01-10] MEDS: ATORVASTATIN 40 MG TAB PO SCH (07:54)
[2021-01-10] MEDS: TAMSULOSIN 0.4 MG CAP.ER.24H PO SCH ×2 (07:55→20:14)
[2021-01-10] MEDS: glipiZIDE 5 MG TAB PO SCH ×2 (07:55→20:14)
[2021-01-10] MEDS: atenoloL 50 MG TAB PO SCH ×2 (07:56→20:14)
[2021-01-10] MEDS: VANCOMYCIN 1,500 MG in SODIUM CHLORIDE 0.9% 250 ML IVPB SCH ×2 (09:33→20:14)
[2021-01-10] MEDS: INSULIN ASPART (NovoLOG) 100 UNIT/ML VIAL SQ SCH ×4 (09:34→20:14)
--- NOTE | 2021-01-10 10:02 | P.PN ---
Subjective Progress Note Date: 01/10/21 Principal diagnosis: Status post L1-L5 decompression with laminectomy Patient was evaluated today at bedside. He is sitting up in hospital chair. Urinary catheter is still in place. Patient states he feels very constipated, he has not had a bowel movement at this time. We are waiting neurology recommendations with regards to the urinary retention and Leone catheter instructions. Patient currently denies any headaches, lightheadedness, chest pain or shortness of breath at this time. He denies any genital/perineal numbness at this time. Objective - Vital Signs Vital signs: Vital Signs Temp 98.7 F 01/10/21 05:15 Pulse 95 01/10/21 07:52 Resp 20 01/10/21 05:15 BP 143/74 01/10/21 07:52 Pulse Ox 96 01/10/21 05:15 Intake & Output 01/09/21 01/10/21 01/10/21 18:59 06:59 18:59 Intake Total 250 Output Total 20 700 Balance 230 -700 Intake: Intake, IV Titration 250 Amount Vancomycin 1,500 mg In 250 Sodium Chloride 0.9% 250 ml @ 125 mls/hr IVPB Q12HR [facility] Rx#:[id number] Output: Drainage 20 Back 20 Urine 700 Straight 700 Other: Voiding Method Indwelling Catheter Indwelling Catheter - Exam Gen: AOx3, NAD VSS stable at this time Integument: Bandages in good position and condition, no obvious drainage. Palpation: Mild tenderness with palpation along the midline and paraspinal region of the incision, he demonstrates no acute tenderness in the cervical or thoracic spine ROM: Full range of motion in all major muscle groups of the bilateral upper and lower extremities Sensory Exam: Senory exam to light touch is intact C5-T1 Senosry exam to light touch is intact L2-S1 Motor: 5/5 strength is appreciated in bilateral upper extremities with shoulder elevation, abduction, elbow extension, elbow flexion, wrist extension, wrist flexion, finger intrinsics 4+/5 strength is patient in the bilateral lower extremities with hip flexion, k nee flexion, knee extension, plantar flexion, dorsiflexion, EHL, FHL Reflexes: 2/4 in all UE and LE Negative Fernandez bilaterally Negative Babinski bilaterally Negative clonus bilaterally - Labs CBC & Chem 7: 01/09/21 08:52 01/09/21 08:52 Labs: Abnormal Lab Results - Last 24 Hours (Table) 01/09/21 01/09/21 01/09/21 Range/Units 13:10 17:42 20:09 POC Glucose (mg/dL) 268 H 268 H 322 H (75-99) mg/dL 01/10/21 Range/Units 07:26 POC Glucose (mg/dL) 160 H (75-99) mg/dL Assessment and Plan Assessment: Postoperative day #4 status post L1-L5 decompression laminectomy Urinary retention Constipation Plan: Pain control, continue with current medication, this to include [place] as needed, patient also has Flexeril and Gabapentin ordered GI and DVT prophylaxis, continue Lovenox subcu daily and Coumadin until INR is therapeutic Dressing changes: Dressing change on 01/11/2021 Continue with PT/OT, recommend use of walker all times with ambulation Discussed with nursing today at bedside to continue with stool softeners, Fleet enema can also be utilized Medical recommendations Await urology recommendations Discharge planning: Awaiting urology recommendations with regards to Leone catheter, patient also needs to have a bowel movement prior to discharge. His INR remained subtherapeutic, we will need to set up home nursing for blood draws, this may have to wait until 01/12/2021 Time with Patient: Less than 30
[2021-01-10 12:32] LABS: Glucose,Whole Blood 224 mg/dL (75-99)
[2021-01-10 12:53] LABS: INR 1.28 (0.90-1.11); Prothrombin Time 13.7 sec (9.9-11.9)
[2021-01-10] MEDS ORDERED: NA PHOS,M-B/NA PHOS,DI-BA 133 ML ENEMA RECTAL STA (14:02)
[2021-01-10 17:06] LABS: Glucose,Whole Blood 240 mg/dL (75-99)
[2021-01-10] MEDS ORDERED: WARFARIN 10 MG TAB PO ONE (18:00)
[2021-01-10 19:54] LABS: Glucose,Whole Blood 231 mg/dL (75-99)
[2021-01-10] MEDS: DOCUSATE 100 MG CAP PO SCH (20:14)
[2021-01-11] MEDS: ACETAMINOPHEN TAB 325 MG TAB PO SCH ×4 (06:21→23:18)
--- NOTE | 2021-01-11 06:46 | P.GSCN ---
History of Present Illness Consult date: 01/10/21 Reason for Consult: PH, urinary retention Requesting physician: Jon South History of present illness: The patient is a 76-year-old white male who underwent L1-2; L2-3; L3-4; L4-5 and L5-S1 bilateral decompressive laminectomy, partial medial facetectomy and foraminotomy on 01/06/2021. He experienced voiding difficulty postoperatively, for which he was initially straight catheterized but now has an indwelling Leone catheter. He has a known history of BPH, for which she has taken tamsulosin for over one year. He has had 3 prior episodes of postoperative urinary retention. Prior to the laminectomy, he was experiencing following symptoms: Weak urinary stream, nocturia 1-2, mild daytime urinary frequency, and intermittency. He denied dysuria, hematuria, and straining. His PSA level has been mildly sacha vated for several years. He underwent a prostate ultrasound of February 2016, revealing a prostate volume of 66 mL. Biopsies the following month were negative. An MRI in November 2018 showed a prostate volume of 57 cc, with no suspicious lesions seen. Review of Systems - Genitourinary Reports as per HPI Past Medical History Past Medical History: Atrial Fibrillation, Chest Pain / Angina, Diabetes Sanaz litus, Hearing Disorder / Deafness, Hyperlipidemia, Musculoskeletal Disorder, Osteoarthritis (OA), Pneumonia, Prostate Disorder Additional Past Medical History / Comment(s): Pyloric stenosis as . Elev PSA, BPH, biopsy nl. Severe fall in his 30's w/ poss injury to back. Chronic lower back pain NT BLE. History of Any Multi-Drug Resistant Organisms: None Reported Past Surgical History: Adenoidectomy, Cholecystectomy, Heart Catheterization, Orthopedic Surgery, Tonsillectomy Additional Past Surgical History / Comment(s): "Aortic Valve"-Mechanical 2012. Pyloric Valve surgery as . Rt Total Knee surgery. Rt Wrist surgery. Total Lt Knee surgery 2019. Pain injections back x2. Past Anesthesia/Blood Transfusion Reactions: Previous Problems w/ Anesthesia Additional Past Anesthesia/Blood Transfusion Reaction / Comm: Problems voiding p ost-op, needed a catheter. Smoking Status: Former smoker - Past Family History Father Family Medical History: Diabetes Mellitus, Myocardial Infarction (IN) Additional Family Medical History / Comment(s): (2 brothers had CAD, CHF) Mother Family Medical History: Cancer Additional Family Medical History / Comment(s): PANCREATIC. Medications and Allergies Home Medications Medication Instructions Recorded Confirmed Type Atorvastatin [Lipitor] 40 mg PO DAILY 03/26/16 01/01/21 History Ferrous Sulfate [Feosol] 325 mg PO DAILY 03/26/16 01/01/21 History Furosemide [Lasix] 40 mg PO DAILY 03/26/16 01/01/21 History Niacin 500 mg PO DAILY 03/26/16 01/01/21 History Warfarin [Coumadin] 7.5 mg PO DAILY 03/26/16 01/01/21 History atenoloL [Atenolol] 50 mg PO BID 03/26/16 01/01/21 History glipiZIDE [Glucotrol] 5 mg PO BID 03/26/16 01/01/21 History lisinopriL [Lisinopril] 2.5 mg PO DAILY 03/26/16 01/01/21 History metFORMIN HCL 1,000 mg PO BID 03/26/16 01/01/21 History Tamsulosin [Flomax] 0.4 mg PO DAILY 12/06/19 01/01/21 History Magnesium 400 mg PO DAILY 06/25/20 01/01/21 History Docusate Sodium [Dok] 100 mg PO HS 01/01/21 01/01/21 History Enoxaparin [Lovenox] 40 mg SQ DAILY 01/01/21 01/01/21 History Allergies Allergy/AdvReac Type Severity Reaction Status Date / Time Penicillins Allergy Unknown Swelling Verified 01/01/21 16:09 Sulfa (Sulfonamide Allergy Unknown Unknown Verified 01/01/21 16:09 Antibiotics) Surgical - Exam Vital Signs Temp Pulse Resp BP Pulse Ox 98 F 78 18 146/78 95 01/06/21 06:14 01/06/21 06:14 01/06/21 06:14 01/06/21 06:14 01/06/21 06:14 - General well developed, well nourished, no distress - Respiratory normal respiratory effort - Abdomen Abdomen: soft, non tender, no guarding, no rigid, no rebound - Genitourinary normal penis with no external lesions, testicles non-tender - Rectum Rectum: normal sphincter tone, no masses, other (Prostate 40-50 g in size, smooth in consistency) - Psychiatric oriented to time, oriented to person, oriented to place, speech is normal, memory intact Results - Labs 01/09/21 08:52 01/09/21 08:52 Abnormal Lab Results - Last 24 Hours (Table) 01/09/21 01/09/21 01/10/21 Range/Units 17:42 20:09 07:26 PT (9.9-11.9) sec INR (0.90-1.11) POC Glucose (mg/dL) 268 H 322 H 160 H (75-99) mg/dL 01/10/21 01/10/21 Range/Units 07:34 12:31 PT 13.7 H (9.9-11.9) sec INR 1.28 H (0.90-1.11) POC Glucose (mg/dL) 224 H (75-99) mg/dL Assessment and Plan (1) Benign prostatic hyperplasia with lower urinary tract symptoms Current Visit: Yes Status: Acute Code(s): N40.1 - BENIGN PROSTATIC HYPERPLASIA WITH LOWER URINARY TRACT SYMP SNOMED Code(s): 629619388 (2) Retention of urine, unspecified Current Visit: Yes Status: Acute Code(s): R33.9 - RETENTION OF URINE, UNSPECIFIED SNOMED Code(s): 947171312 Plan: The patient is experiencing difficulty having a bowel movement. This can contribute to urinary retention. He is currently receiving tamsulosin. It would be my recommendation that the Leone catheter be removed and that he be given a voiding trial after his bowel movements have normalized. This can be done while hospitalized, or if he is otherwise ready for discharge this can be done as an outpatient. This was reviewed in detail with the patient and his . Time with Patient: Greater than 30
[2021-01-11 07:21] LABS: Glucose,Whole Blood 185 mg/dL (75-99)
[2021-01-11] MEDS: ATORVASTATIN 40 MG TAB PO SCH (07:53)
[2021-01-11] MEDS: FUROSEMIDE 40 MG TAB PO SCH (07:53)
[2021-01-11] MEDS: GABAPENTIN 300 MG CAP PO SCH ×2 (07:53→20:31)
[2021-01-11] MEDS: atenoloL 50 MG TAB PO SCH ×2 (07:53→20:31)
[2021-01-11] MEDS: metFORMIN 500 MG TAB PO SCH ×2 (07:53→20:31)
[2021-01-11] MEDS: VANCOMYCIN 1,500 MG in SODIUM CHLORIDE 0.9% 250 ML IVPB SCH ×2 (07:54→20:32)
[2021-01-11] MEDS: ENOXAPARIN 40 MG/0.4 ML SYRINGE SQ SCH (07:54)
[2021-01-11] MEDS: TAMSULOSIN 0.4 MG CAP.ER.24H PO SCH ×2 (07:54→20:31)
[2021-01-11] MEDS: glipiZIDE 5 MG TAB PO SCH ×2 (07:54→20:31)
[2021-01-11] MEDS: INSULIN ASPART (NovoLOG) 100 UNIT/ML VIAL SQ SCH ×4 (07:54→21:41)
--- NOTE | 2021-01-11 09:43 | P.PN ---
Subjective Progress Note Date: 01/11/21 Principal diagnosis: Status post L1-L5 decompression with laminectomy Patient was evaluated today at bedside. He is sitting up in hospital chair. Urinary catheter is still in place. Urology did evaluate patient yesterday, they're recommending removal of Leone catheter after normalization of bowel movements for trial voiding. Patient admits to 2 bowel movements yesterday, th ey were minimal he states but he does feel less pressure in his lower abdominal region. Patient currently denies any headaches, lightheadedness, chest pain or shortness of breath at this time. He denies any genital/perineal numbness at this time. Objective - Vital Signs Vital signs: Vital Signs Temp 98.1 F 01/11/21 05:00 Pulse 82 01/11/21 08:00 Resp 14 01/11/21 08:00 BP 133/64 01/11/21 05:00 Pulse Ox 98 01/11/21 05:00 Intake & Output 01/10/21 01/11/21 01/11/21 18:59 06:59 18:59 Intake Total 200 Output Total 600 600 Balance -600 -400 Intake: Oral 200 Output: Urine 600 600 Other: Voiding Method Indwelling Catheter Indwelling Catheter Indwelling Catheter # Bowel Movements 1 1 - Exam Gen: AOx3, NAD VSS stable at this time Integument: Bandages were removed today bedside, the surgical tape remains in good position and condition. The drain hole is well healing, there is no drainage noted. Mild soft tissue swelling surrounding the incision, no areas of fluctuance appreciated. Palpation: Mild tenderness with palpation along the midline and paraspinal region of the incision, he demonstrates no acute tenderness in the cervical or thoracic spine ROM: Full range of motion in all major muscle groups of the bilateral upper and lower extremities Sensory Exam: Senory exam to light touch is intact C5-T1 Senosry exam to light touch is intact L2-S1 Motor: 5/5 strength is appreciated in bilateral upper extremities with shoulder elevation, abduction, elbow extension, elbow flexion, wrist extension, wrist fl exion, finger intrinsics 4+/5 strength is patient in the bilateral lower extremities with hip flexion, knee flexion, knee extension, plantar flexion, dorsiflexion, EHL, FHL Reflexes: 2/4 in all UE and LE Negative Fernandez bilaterally Negative Babinski bilaterally Negative clonus bilaterally - Labs CBC & Chem 7: 01/09/21 08:52 01/09/21 08:52 Labs: Abnormal Lab Results - Last 24 Hours (Table) 01/10/21 01/10/21 01/10/21 Range/Units 07:34 12:31 17:03 PT 13.7 H (9.9-11.9) sec INR 1.28 H (0.90-1.11) POC Glucose (mg/dL) 224 H 240 H (75-99) mg/dL 01/10/21 01/11/21 Range/Units 19:53 07:16 PT (9.9-11.9) sec INR (0.90-1.11) POC Glucose (mg/dL) 231 H 185 H (75-99) mg/dL Assessment and Plan Assessment: Postoperative day #5 status post L1-L5 decompression laminectomy Urinary retention Constipation Plan: Pain control, continue with current medication, this to include [place] as needed, patient also has Flexeril and Gabapentin ordered GI and DVT prophylaxis, continue Lovenox subcu daily and Coumadin until INR is therapeutic Continue with PT/OT, recommend use of walker all times with ambulation Continue Senna-S and milk of magnesia daily for constipation, Fleet enema as needed Will leave catheter in place at this time. The patient has a large bowel movement today, nursing was notified that we may remove the catheter for voiding trial. Medical recommendations Discharge planning: hopeful discharge home on 01/12/2021, we'll discuss with case management and need for home nursing and INR checks if INR remains subtherapeutic prior to discharge. Appreciate urology recommendations for outpatient instructions. Time with Patient: Less than 30
[2021-01-11 10:17] LABS: INR 2.1 (<1.2)
[2021-01-11 10:18] LABS: Prothrombin Time 20.5 sec (9.0-12.0)
--- NOTE | 2021-01-11 12:00 | PN ---
PROGRESS NOTE This is a 76-year-old white male. INR is up to 2.1. Will probably be able to stop his Lovenox. wait for his urinary retention. He was kept a couple of days because of urinary retention. We increased his Flomax to try to help. tried to get his constipation fixed, which would help with his urine output also. CARDIOVASCULAR: S1, S2. LUNGS: Clear. GI: Soft. ASSESSMENT: 1. Urinary retention. 2. Lumbar disk herniation surgery. 3. Benign prostatic hyperplasia. 4. Retention of urine. Keep him on possibly discharge him home depending on if he urinates with or without a Leone. Continue current medications. Restart his Coumadin and hold his Lovenox, as his Coumadin is therapeutic. Prognosis guarded. Diabetes home home medicines will be given. JUSTUS / KEON: [id number] /
[2021-01-11 12:17] LABS: Glucose,Whole Blood 182 mg/dL (75-99)
[2021-01-11] MEDS: LACTATED RINGERS 1,000 ML IV SCH (15:35)
--- NOTE | 2021-01-11 15:38 | P.PN ---
Progress Note - Text Progress Note Date: 01/11/21 The patient's Leone catheter remains in place. He is taking tamsulosin 0.8 mg daily for BPH. We discussed BPH treatment options at length today. He prefers to maximize medical therapy rather than to undergo a TURP. He wishes to take finasteride along with tamsulosin. Discharge home tomorrow is anticipated. He will be given a voiding trial prior to discharge.
[2021-01-11 17:27] LABS: Glucose,Whole Blood 177 mg/dL (75-99)
[2021-01-11] MEDS ORDERED: WARFARIN 7.5 MG TAB PO ONE (18:00)
[2021-01-11 20:54] LABS: Glucose,Whole Blood 232 mg/dL (75-99)
--- NOTE | 2021-01-11 22:28 | PN ---
PROGRESS NOTE This 76-year-old white male is status post cervical spine surgery with urinary retention. His INR is therapeutic. We can take him off his injections of Lovenox, as his INR is therapeutic. CARDIOVASCULAR: S1, S2. LUNGS: Clear. GI: Soft. HEMATOLOGY: Negative Homans. Leone catheter in place. Therapeutic trial of urination without Leone catheter tomorrow prior to discharge. INR therapeutic. Can continue Coumadin, go off his Lovenox injections at this point. MMODL / IJN: [id number] /
[2021-01-12] MEDS: ACETAMINOPHEN TAB 325 MG TAB PO SCH ×2 (05:17→13:43)
[2021-01-12 07:13] LABS: Glucose,Whole Blood 118 mg/dL (75-99)
[2021-01-12] MEDS: INSULIN ASPART (NovoLOG) 100 UNIT/ML VIAL SQ SCH ×2 (07:31→13:42)
[2021-01-12 07:46] LABS: INR 2.6 (<1.2); Prothrombin Time 25.5 sec (9.0-12.0)
[2021-01-12] MEDS ORDERED: VANCOMYCIN TROUGH DUE 1 EACH MISC MISCELLANE ONE (08:00)
[2021-01-12 08:05] LABS: African American GFR (CKD) >90 (>60 ml/min/1.73 sqM); Non-African American GFR(CKD) >90 (>60 ml/min/1.73 sqM)
[2021-01-12] MEDS: TAMSULOSIN 0.4 MG CAP.ER.24H PO SCH (08:27)
[2021-01-12] MEDS: atenoloL 50 MG TAB PO SCH (08:27)
[2021-01-12] MEDS: glipiZIDE 5 MG TAB PO SCH (08:27)
[2021-01-12] MEDS: FUROSEMIDE 40 MG TAB PO SCH (08:27)
[2021-01-12] MEDS: metFORMIN 500 MG TAB PO SCH (08:28)
[2021-01-12] MEDS: ATORVASTATIN 40 MG TAB PO SCH (08:28)
[2021-01-12] MEDS: GABAPENTIN 300 MG CAP PO SCH (08:28)
[2021-01-12] MEDS: LACTATED RINGERS 1,000 ML IV SCH (08:34)
[2021-01-12] MEDS: VANCOMYCIN 1,500 MG in SODIUM CHLORIDE 0.9% 250 ML IVPB SCH (09:33)
[2021-01-12 11:57] LABS: Glucose,Whole Blood 297 mg/dL (75-99)
[2021-01-12 12:01] VITALS: BP 125/68; PULSE 79; RESP 16; TEMP 98.1
--- NOTE | 2021-01-12 12:48 | P.PN ---
Subjective Progress Note Date: 01/12/21 Principal diagnosis: Status post L1-L5 decompression with laminectomy Patient was evaluated today at bedside. Patient is doing very well. Patient did have a few bowl movements today and yesterday. The urinary catheter was removed yesterday, he is urinating with no issues. Patient currently denies any headaches, lightheadedness, chest pain or shortness of breath at this time. He denies any genital/perineal numbness at this time. Objective - Vital Signs Vital signs: Vital Signs Temp 98.1 F 01/12/21 11:31 Pulse 79 01/12/21 11:31 Resp 16 01/12/21 11:31 BP 125/68 01/12/21 11:31 Pulse Ox 100 01/12/21 11:31 Intake & Output 01/11/21 01/12/21 01/12/21 18:59 06:59 18:59 Intake Total 125 Output Total 1470 1600 Balance -1345 -1600 Intake: Intake, IV Titration 125 Amount Vancomycin 1,500 mg In 125 Sodium Chloride 0.9% 250 ml @ 125 mls/hr IVPB Q12HR [facility] Rx#:[id number] Output: Drainage 20 Back 20 Urine 1450 1600 Other: Voiding Method Indwelling Catheter Indwelling Catheter Toilet # Voids 1 # Bowel Movements 1 1 - Exam Gen: AOx3, NAD VSS stable at this time Integument: Bandages were removed today bedside, the surgical tape remains in good position and condition. The drain hole is well healing, there is no drainage noted. Mild soft tissue swelling surrounding the incision, no areas of fluctuance appreciated. Palpation: Mild tenderness with palpation along the midline and paraspinal region of the incision, he demonstrates no acute tenderness in the cervical or thoracic spine ROM: Full range of motion in all major muscle groups of the bilateral upper and lower extremities Sensory Exam: Senory exam to light touch is intact C5-T1 Senosry exam to light touch is intact L2-S1 Motor: 5/5 strength is appreciated in bilateral upper extremities with shoulder elevation, abduction, elbow extension, elbow flexion, wrist extension, wrist flexion, finger intrinsics 4+/5 strength is patient in the bilateral lower extremities with hip flexion, knee flexion, knee extension, plantar flexion, dorsiflexion, EHL, FHL Reflexes: 2/4 in all UE and LE Negative Fernandez bilaterally Negative Babinski bilaterally Negative clonus bilaterally - Labs CBC & Chem 7: 01/09/21 08:52 01/12/21 07:16 Labs: Abnormal Lab Results - Last 24 Hours (Table) 01/11/21 01/11/21 01/12/21 Range/Units 17:19 20:51 07:11 PT (9.0-12.0) sec INR (<1.2) Creatinine (0.66-1.25) mg/dL POC Glucose (mg/dL) 177 H 232 H 118 H (75-99) mg/dL 01/12/21 01/12/21 01/12/21 Range/Units 07:16 07:16 11:34 PT 25.5 H (9.0-12.0) sec INR 2.6 H (<1.2) Creatinine 0.54 L (0.66-1.25) mg/dL POC Glucose (mg/dL) 297 H (75-99) mg/dL Assessment and Plan Assessment: Postoperative day #6 status post L1-L5 decompression laminectomy Urinary retention Constipation Plan: Pain control, medication has been sent to pharmacy GI and DVT prophylaxis, INR is therapeutic, discontinue Lovenox and continue with his Coumadin after discharge Continue with PT/OT, recommend use of walker all times with ambulation Continue stool softeners after discharge Recommend follow-up with urology in the outpatient setting for recheck in the next 1-2 weeks Medical recommendations Discharge planning: Plan for discharge home today Time with Patient: Less than 30
--- NOTE | 2021-01-12 12:54 | P.DS ---
<JoseJaguarSyed M - Last Filed: 01/12/21 12:54> Providers Expected date of discharge: 01/12/21 Hospital Course: Date of admission: 01/06/2021 Date of discharge: 01/12/2021 Admission diagnosis: Status post L1-2; L2-3; L3-4; L4-5 and L5-S1 bilateral decompressive laminectomy, partial medial facetectomy and foraminotomy Discharge diagnosis: Same Attending physician: Dr. South Surgical procedures: L1-2; L2-3; L3-4; L4-5 and L5-S1 bilateral decompressive laminectomy, partial medial facetectomy and foraminotomy Brief history: Patient is a 76-year-old male with a history of chronic low back pain with accompanying bilateral lower extremity pain and weakness. At this point patient has failed conservative treatment measures and has opted to proceed with a elective L1-S1 decompression. Hospital course: Details of patient's surgery can be found in operative report. Patient tolerated the procedure well and was subsequently transported to orthopedic floor. Patient's orthopeidc and medical care was provided daily. Patient had daily laboratory tests performed for evaluation of overall blood counts. Patient had daily physical therapy to include strengthening range of motion as well as education with walker ambulation. Patient was treated with Lovenox and Xarelto for their postoperative DVT prophylaxis during their inpatient stay. Patient was noted to have a relatively uneventful postoperative course. Patient did have difficulty with urination along with constipation pos toperatively. Patient does have a history of BPH which he had not seen a neurologist for quite some time. Neurology did see the patient while in the hospital and the recommendations were appreciated. Patient reported satisfactory pain control with oral pain medications by postoperative day 0. Patient showed satisfactory progress with physical therapy. Patient moved steadily through the program and had no difficulty meeting the goals by postoperative day 6. Given patient's otherwise satisfactory course and having met physical therapy goals, plan is to discharge patient [home] on postoperative day 6. Discharge condition/disposition: Patient will be discharged [home] in stable condition. Discharge medications: Instructions are given on resumption of patient's normal daily medications per primary care recommendation, in addition patient will be prescribed [place] 10 mg/325 mg, Duricef 500 mg, gabapentin 300 mg, senna S, Proscar 5 mg, Flexeril 10 mg Spine Discharge and Recovery Instructions Medications: See medication list All medication refills should be obtained through your primary care doctor or your clinic spine surgeon. Please discuss prescription refills at your follow up appointment. Do not call the hospital for medication refills. Dressing: Leave your dressing in place for a total of 5 days post operatively. Then you may remove your dressing and leave open to air. Keep the area clean and if not able to keep area clean, then cover with sterile gauze and tape. Showering: You may shower 3 days after your procedure allowing soap and water to run over incision. Do not scrub. Do not soak. Blot dry. Follow up: Please confirm a follow up appointment with your surgeon 3 weeks post operatively. Please make an appointment to follow up with your PCP in 1-2 weeks after surgery for evaluation 3 phase, 3-week plan POST OP WEEKS 1-3 1. Lifting/carrying/pushing/pulling limited to less than 5 pounds. 2. Do not sit for longer than 15 minutes at one time. Get up and walk around. Prolonged sitting is NOT advised. If you lay down, see if you can tolerate laying down on you front (belly side) 3. Walk for periods of 15 minutes = 1 mile but no longer; do it multiple times times each day. 4. Ice your low back after activity. POST OP WEEKS 3-6 1. Lifting limited to less than 20 pounds. 2. Do not sit for longer than 30 minutes at a time. Frequently change positions. Use a sit-to stand workstation or take frequent breaks from sitting if you have returned to work. 3. Walk for 30 minutes each day. If possible, do these three or more times a day POST OP WEEKS 6+ At your 6-week appointment we will give you a physical therapy referral to focus on a core stabilization and strengthening program. You should also work on leg & buttock strengthening, hamstring & quadriceps stretching, and continue a low impact aerobic activity program such as swimming, walking, or riding a stationary bicycle. During the initial 6 weeks after your surgery, you are at the highest risk of re-injuring your spine. You should generally avoid BLTs (bending, lifting and twisting combination motions) and follow the above guidelines to reduce the chance of reinjury. You can anticipate post op appointments in our office at approximately 3 weeks and 6 weeks after your surgery. INCISION CARE: If your incision is not draining you do NOT need to cover it with a dressing. Keep your incision clean, dry and intact. In most cases, we apply skin glue, dago or sutures to the incision at the time of surgery. This will be like a crust or have the appearance of a scab and will fall off in time on its own. The stitches or dago need to be removed at 3 weeks post op appointment. You may begin to shower 3 days after surgery (this allows the glue to galicia well). However, please avoid scrubbing the incision site or peeling off any of the skin glue. This will ensure optimal healing of your incision. Also, during this time avoid soaking the incision area in water - this includes swimming pools, hot tubs or baths. No ointments, lotions or oils on the incision until your surgeon allows. Leave dago, sutures or glue in place. Neurological dysfunction that comes on suddenly can also be a sign of a stroke. Below some common symptoms of a stroke are listed: B - balance difficulty such as sudden onset walking or leaning to one side - NEW E - eye problem such as sudden double vision or trouble seeing on one side - NEW F - Facial weakness or numbness on one side - NEW A - Arm or leg weakness or numbness on one side - NEW S - Slurred speech or difficulty with word finding - NEW T - Time is BRAIN! Call 911 as soon as you recognize these symptoms Diet: Consume a regular diet rich in vegetables and lean protein such as chicken or fish. You should consume in a ratio of approximately 20% fats|40% carbohydrates|40%protein. Vegetables, sweet potatoes, brown rice or quinoa are examples of good carbohydrates. Chips, white bread, cookies and sweets/sugar are examples of bad carbohydrates. Limit your bad carbs, go wild with good carbs. "Life's Simple 7" Guidelines as per [place] [employer] These will help you reclaim your life after surgery and wharf helper in your recovery, keeping in mind your restrictions. (1) Get Active. Physical activity can help people lose weight, control high blood pressure and cholesterol, feel emotionally better, and sleep better. (2) Control Cholesterol. Avoid a diet high in saturated fat, trans fat, & cholesterol. Limit whole milk & cream, ice cream, butter, egg yolks, processed meats (like sausage and hot dogs), and fatty meats. Choose healthy foods that are low in saturated fat, trans fat and cholesterol which include: Fruits and vegetables, fiber rich grain products (like whole grain pasta and brown rice), lean meat such as chicken, fish, nuts, seeds, and legumes. (3) Eat Better. Eat small portions. Shop at the grocery with a list and do not stray from it. Tips for a healthy diet include: Limit sodium intake to less than 1500mg daily, avoid prepackaged, processed, and fast foods, choose a diet rich in fruits, vegetables, and whole grain, high fiber foods, and limit s aturated & cholesterol in your diet. (4) Manage Blood Pressure. If you have high blood pressure, you should have a cuff at home so that you can check your blood pressure regularly. Be sure you have a good cuff. An arm one is generally better than a wrist one. Bring the cuff to a doctor's appointment to validate that the measurements that your cuff are taking are accurate. Take your blood pressure twice daily when you are sitting down and relaxing. Record the numbers in a log and bring this log with you to your doctors' appointments. (5) Lose Weight if your BMI is above 25. A healthy BMI is between 19-25. To calculate Your BMI, you may use a Standard BMI Calculator on the NIH BMI website: <www.nhlbi.nih.gov/guidelines/obesity/BMI/bmicalc.htm>. Weigh oneself daily. If you are overweight, set a goal to lose weight. A pound a week loss if needed is a good target. (6) Reduce Blood Sugar. Limit foods and liquids with "added sugars." (Added sugars include sucrose, fructose, glucose, maltose, dextrose, high fructose corn syrup, corn syrup, concentrated fruit juice and honey). (7) Stop Smoking. If you smoke, quitting smoking is one of the best things that you can do for your health. Smoking increases your risk of heart attack, stroke, and peripheral vascular disease, which is a build-up of plaque in your arteries. Please discard all the cigarettes and lighters in your house. Have a plan for what you will do when you have the urge to smoke. Direct and second- hand smoke shortens your life as well as the lives of your family, friends and others around you. For your health and the health of those around you, please consider quitting! Proper Bending Body Mechanics: Maintain a wide stance with one foot slightly in front of the other. Keep your back straight. Bend utilizing the strength in your hips and knees. Do not bend at the waist. Maintain the lifted object at your waist-level close to your body. Avoid lifting weight that causes immediately pain or pain anywhere in the body afterwards. Smoking/Nicotine If there was ever one thing that you could do to increase your overall health, decrease your risk of cardiovascular problems by about 39% the second you make the choice, it is to STOP SMOKING. Your body's most instant gratification is the second you stop smoking. We have all heard the studies, read the articles but it is true, smoking is extremely bad for your overall health, and moreover it is detrimental to your bone health. Nicotine, IN ANY FORM, kills bone cells, prevents your body from healing fractures, and significantly prolongs healing after surgery. In spine surgery specifically, it increases your risk of not healing your bones to create a fusion and increases your risk of having a revision surgery due to this up to 60%. I know it is hard. I know it feels impossible. But there are ways. Take control of your life. We are here to help you through it. And when you are ready, ask us and we can direct you to help if you desire. Use the START Plan to Quit Smoking (please visit the Helpguide.org website listed below for more information): S = Set a quit date. Choose a date within the next 2 weeks, so you have enough time to prepare without losing your motivation to quit. If you mainly smoke at work, quit on the weekend, so you have a few days to adjust to the change. T = Tell family, friends, and co-workers that you plan to quit. Let your friends and family in on your plan to quit smoking and tell them you n eed their support and encouragement to stop. Look for a quit mami who wants to stop smoking as well. You can help each other get through the rough times. A = Anticipate and plan for the challenges you'll face while quitting. Most people who begin smoking again do so within the first 3 months. You can help yourself make it through by preparing ahead for common challenges, such as nicotine withdrawal and cigarette cravings. R = Remove cigarettes and other tobacco products from your home, car, and work. Throw away all your cigarettes (no emergency pack!), lighters, ashtrays, and matches. Wash your clothes and freshen up anything that smells like smoke. Shampoo your car, clean your drapes and carpet, and steam your furniture. T = Talk to your doctor about getting help to quit. Your doctor can prescribe medication to help with withdrawal and suggest other alternatives. If you can't see a doctor, you can get many products over the counter at your local pharmacy or grocery store, including the nicotine patch, nicotine lozenges, and nicotine gum. Resources for Quitting Smoking: <https://www.[place].gov/documents/[facility]/Quit_Tobacco_Resources_for_patients_313 480_7.pdf> Supplementation: Take recommended dosages of Vitamin D and Calcium to help fortify your bones and help them to heal. See your health maintenance packet for dosages and recommended levels. DVT/VTE prophylaxis: You will be given compression stockings from the hospital. Wear these daily for the first two weeks after surgery. You may take them off at night. You may be prescribed a medication to help thin your blood. Take this as directed. If you are not prescribed this medication, early and frequent ambulation has been shown to be the best prophylaxis to deep vein thrombosis and sequelae related to this event. Procedures: L1-2; L2-3; L3-4; L4-5 and L5-S1 bilateral decompressive laminectomy, partial medial facetectomy and foraminotomy Patient Condition at Discharge: Stable Plan - Discharge Summary Discharge Rx Participant: Yes New Discharge Prescriptions: New Cyclobenzaprine [Flexeril] 10 mg PO BID PRN #30 tab PRN Reason: Spasms HYDROcodone/APAP 10-325MG [[place] 10-325] 1 tab PO Q4HR PRN #56 tab PRN Reason: Pain Finasteride [Proscar] 5 mg PO DAILY 90 Days #90 tablet cefaDROXiL [Duricef] 500 mg PO Q12HR 5 Days #10 cap Gabapentin 300 mg PO TID 3 Days #90 cap Sennosides/Docusate Sodium [Senna Plus 8.6-50 mg Softgel] 1 each PO BID #20 capsule No Action Atorvastatin [Lipitor] 40 mg PO DAILY Niacin 500 mg PO DAILY Ferrous Sulfate [Feosol] 325 mg PO DAILY atenoloL [Atenolol] 50 mg PO BID lisinopriL [Lisinopril] 2.5 mg PO DAILY Furosemide [Lasix] 40 mg PO DAILY Warfarin [Coumadin] 7.5 mg PO DAILY glipiZIDE [Glucotrol] 5 mg PO BID metFORMIN HCL 1,000 mg PO BID Tamsulosin [Flomax] 0.4 mg PO DAILY Magnesium 400 mg PO DAILY Docusate Sodium [Dok] 100 mg PO HS Enoxaparin [Lovenox] 40 mg SQ DAILY Discharge Medication List Atorvastatin [Lipitor] 40 mg PO DAILY 03/26/16 [History] Ferrous Sulfate [Feosol] 325 mg PO DAILY 03/26/16 [History] Furosemide [Lasix] 40 mg PO DAILY 03/26/16 [History] Niacin 500 mg PO DAILY 03/26/16 [History] Warfarin [Coumadin] 7.5 mg PO DAILY 03/26/16 [History] atenoloL [Atenolol] 50 mg PO BID 03/26/16 [History] glipiZIDE [Glucotrol] 5 mg PO BID 03/26/16 [History] lisinopriL [Lisinopril] 2.5 mg PO DAILY 03/26/16 [History] metFORMIN HCL 1,000 mg PO BID 03/26/16 [History] Tamsulosin [Flomax] 0.4 mg PO DAILY 12/06/19 [History] Magnesium 400 mg PO DAILY 06/25/20 [History] Docusate Sodium [Dok] 100 mg PO HS 01/01/21 [History] Enoxaparin [Lovenox] 40 mg SQ DAILY 01/01/21 [History] Finasteride [Proscar] 5 mg PO DAILY 90 Days #90 tablet 01/11/21 [Rx] Cyclobenzaprine [Flexeril] 10 mg PO BID PRN #30 tab 01/12/21 [Rx] Gabapentin 300 mg PO TID 3 Days #90 cap 01/12/21 [Rx] HYDROcodone/APAP 10-325MG [[place] 10-325] 1 tab PO Q4HR PRN #56 tab 01/12/21 [Rx] Sennosides/Docusate Sodium [Senna Plus 8.6-50 mg Softgel] 1 each PO BID #20 capsule 01/12/21 [Rx] cefaDROXiL [Duricef] 500 mg PO Q12HR 5 Days #10 cap 01/12/21 [Rx] Follow up Appointment(s)/Referral(s): Qamar Ramon MD [STAFF PHYSICIAN] - 01/26/21 3:20 pm Jose Zavala MD [Primary Care Provider] - 01/20/21 10:15 am Robby,Kevin Lindsey [NON-STAFF] - 1 Week (AGENCY WILL CONTACT YOU ) Jon South DO [Doctor of Osteopathic Medicine] - 01/23/21 8:50 am Ambulatory/Diagnostic Orders: Prothrombin Time INR [LAB.AMB] Location: None Selected Patient Instructions/Handouts: Urinary Retention in Men (GEN), Laminectomy (DC) Activity/Diet/Wound Care/Special Instructions: Spine Discharge and Recovery Instructions Medications: See medication list All medication refills should be obtained through your primary care doctor or your clinic spine surgeon. Please discuss prescription refills at your follow up appointment. Do not call the hospital for medication refills. Dressing: Leave your dressing in place for a total of 5 days post operatively. Then you may remove your dressing and leave open to air. Keep the area clean and if not able to keep area clean, then cover with sterile gauze and tape. Showering: You may shower 3 days after your procedure allowing soap and water to run over incision. Do not scrub. Do not soak. Blot dry. Follow up: Please confirm a follow up appointment with your surgeon 3 weeks post operatively. Please make an appointment to follow up with your PCP in 1-2 weeks after surgery for evaluation 3 phase, 3-week plan POST OP WEEKS 1-3 1. Lifting/carrying/pushing/pulling limited to less than 5 pounds. 2. Do not sit for longer than 15 minutes at one time. Get up and walk around. Prolonged sitting is NOT advised. If you lay down, see if you can tolerate laying down on you front (belly side) 3. Walk for periods of 15 minutes = 1 mile but no longer; do it multiple times times each day. 4. Ice your low back after activity. POST OP WEEKS 3-6 1. Lifting limited to less than 20 pounds. 2. Do not sit for longer than 30 minutes at a time. Frequently change positions. Use a sit-to stand workstation or take frequent breaks from sitting if you have returned to work. 3. Walk for 30 minutes each day. If possible, do these three or more times a day POST OP WEEKS 6+ At your 6-week appointment we will give you a physical therapy referral to focus on a core stabilization and strengthening program. You should also work on leg & buttock strengthening, hamstring & quadriceps stretching, and continue a low impact aerobic activity program such as swimming, walking, or riding a stationary bicycle. During the initial 6 weeks after your surgery, you are at the highest risk of re-injuring your spine. You should generally avoid BLTs (bending, lifting and twisting combination motions) and follow the above guidelines to reduce the chance of reinjury. You can anticipate post op appointments in our office at approximately 3 weeks and 6 weeks after your surgery. INCISION CARE: If your incision is not draining you do NOT need to cover it with a dressing. Keep your incision clean, dry and intact. In most cases, we apply skin glue, dago or sutures to the incision at the time of surgery. This will be like a crust or have the appearance of a scab and will fall off in time on its own. The stitches or dago need to be removed at 3 weeks post op appointment. You may begin to shower 3 days after surgery (this allows the glue to galicia well). However, please avoid scrubbing the incision site or peeling off any of the skin glue. This will ensure optimal healing of your incision. Also, during this time avoid soaking the incision area in water - this includes swimming pools, hot tubs or baths. No ointments, lotions or oils on the incision until your surgeon allows. Leave dago, sutures or glue in place. Neurological dysfunction that comes on suddenly can also be a sign of a stroke. Below some common symptoms of a stroke are listed: B - balance difficulty such as sudden onset walking or leaning to one side - NEW E - eye problem such as sudden double vision or trouble seeing on one side - NEW F - Facial weakness or numbness on one side - NEW A - Arm or leg weakness or numbness on one side - NEW S - Slurred speech or difficulty with word finding - NEW T - Time is BRAIN! Call 911 as soon as you recognize these symptoms Diet: Consume a regular diet rich in vegetables and lean protein such as chicken or fish. You should consume in a ratio of approximately 20% fats|40% carbohydrates|40%protein. Vegetables, sweet potatoes, brown rice or quinoa are examples of good carbohydrates. Chips, white bread, cookies and sweets/sugar are examples of bad carbohydrates. Limit your bad carbs, go wild with good carbs. "Life's Simple 7" Guidelines as per [place] [employer] These will help you reclaim your life after surgery and wharf helper in your recover y, keeping in mind your restrictions. (1) Get Active. Physical activity can help people lose weight, control high blood pressure and cholesterol, feel emotionally better, and sleep better. (2) Control Cholesterol. Avoid a diet high in saturated fat, trans fat, & cholesterol. Limit whole milk & cream, ice cream, butter, egg yolks, processed meats (like sausage and hot dogs), and fatty meats. Choose healthy foods that are low in saturated fat, trans fat and cholesterol which include: Fruits and vegetables, fiber rich grain products (like whole grain pasta and brown rice), lean meat such as chicken, fish, nuts, seeds, and legumes. (3) Eat Better. Eat small portions. Shop at the grocery with a list and do not stray from it. Tips for a healthy diet include: Limit sodium intake to less than 1500mg daily, avoid prepackaged, processed, and fast foods, choose a diet rich in fruits, vegetables, and whole grain, high fiber foods, and limit saturated & cholesterol in your diet. (4) Manage Blood Pressure. If you have high blood pressure, you should have a cuff at home so that you can check your blood pressure regularly. Be sure you have a good cuff. An arm one is generally better than a wrist one. Bring the cuff to a doctor's appointment to validate that the measurements that your cuff are taking are accurate. Take your blood pressure twice daily when you are sitting down and relaxing. Record the numbers in a log and bring this log with you to your doctors' appointments. (5) Lose Weight if your BMI is above 25. A healthy BMI is between 19-25. To calculate Your BMI, you may use a Standard BMI Calculator on the NIH BMI website: <www.nhlbi.nih.gov/guidelines/obesity/BMI/bmicalc.htm>. Weigh oneself daily. If you are overweight, set a goal to lose weight. A pound a week loss if needed is a good target. (6) Reduce Blood Sugar. Limit foods and liquids with "added sugars." (Added sugars include sucrose, fructose, glucose, maltose, dextrose, high fructose corn syrup, corn syrup, concentrated fruit juice and honey). (7) Stop Smoking. If you smoke, quitting smoking is one of the best things that you can do for your health. Smoking increases your risk of heart attack, stroke, and peripheral vascular disease, which is a build-up of plaque in your arteries. Please discard all the cigarettes and lighters in your house. Have a plan for what you will do when you have the urge to smoke. Direct and second- hand smoke shortens your life as well as the lives of your family, friends and others around you. For your health and the health of those around you, please consider quitting! Proper Bending Body Mechanics: Maintain a wide stance with one foot slightly in front of the other. Keep your back straight. Bend utilizing the strength in your hips and knees. Do not bend at the waist. Maintain the lifted object at your waist-level close to your body. Avoid lifting weight that causes immediately pain or pain anywhere in the body afterwards. Smoking/Nicotine If there was ever one thing that you could do to increase your overall health, decrease your risk of cardiovascular problems by about 39% the second you make the choice, it is to STOP SMOKING. Your body's most instant gratification is the second you stop smoking. We have all heard the studies, read the articles but it is true, smoking is extremely bad for your overall health, and moreover it is detrimental to your bone health. Nicotine, IN ANY FORM, kills bone cells, prevents your body from healing fractures, and significantly prolongs healing after surgery. In spine surgery specifically, it increases your risk of not healing your bones to create a fusion and increases your risk of having a revision surgery due to this up to 60%. I know it is hard. I know it feels impossible. But there are ways. Take control of your life. We are here to help you through it. And when you are ready, ask us and we can direct you to help if you desire. Use the START Plan to Quit Smoking (please visit the [employer] website listed below for more information): S = Set a quit date. Choose a date within the next 2 weeks, so you have enough time to prepare without losing your motivation to quit. If you mainly smoke at work, quit on the weekend, so you have a few days to adjust to the change. T = Tell family, friends, and co-workers that you plan to quit. Let your friends and family in on your plan to quit smoking and tell them you need their support and encouragement to stop. Look for a quit mami who wants to stop smoking as well. You can help each other get through the rough times. A = Anticipate and plan for the challenges you'll face while quitting. Most people who begin smoking again do so within the first 3 months. You can help yourself make it through by preparing ahead for common challenges, such as nicotine withdrawal and cigarette cravings. R = Remove cigarettes and other tobacco products from your home, car, and work. Throw away all your cigarettes (no emergency pack!), lighters, ashtrays, and matches. Wash your clothes and freshen up anything that smells like smoke. Shampoo your car, clean your drapes and carpet, and steam your furniture. T = Talk to your doctor about getting help to quit. Your doctor can prescribe medication to help with withdrawal and suggest other alternatives. If you can't see a doctor, you can get many products over the counter at your local pharmacy or grocery store, including the nicotine patch, nicotine lozenges, and nicotine gum. Resources for Quitting Smoking: <https://www.[place].gov/documents/[facility]/Quit_Tobacco_Resources_for_patients_313 480_7.pdf> Supplementation: Take recommended dosages of Vitamin D and Calcium to help fortify your bones and help them to heal. See your health maintenance packet for dosages and recommended levels. DVT/VTE prophylaxis: You will be given compression stockings from the hospital. Wear these daily for the first two weeks after surgery. You may take them off at night. You may be prescribed a medication to help thin your blood. Take this as directed. If you are not prescribed this medication, early and frequent ambulation has been shown to be the best prophylaxis to deep vein thrombosis and sequelae related to this event. Discharge Disposition: HOME WITH HOME HEALTH SERVICES <Jon South - Last Filed: 01/13/21 07:33> Providers Date of admission: 01/08/21 15:47 Attending physician: Jon South DO Consults: 01/06/21 12:24 Consult Physician Routine Consulting Provider: Lorraine Cartagena Consult Reason/Comments: Medical Management s/p L1-S1 Laminectomy and decompression Do you want consulting provider notified?: Yes 01/08/21 09:35 Consult Physician Routine Consulting Provider: Qamar Ramon Consult Reason/Comments: hematuria, BPH Do you want consulting provider notified?: Yes Primary care physician: [facility] Course: Pt underwent successful procedure and recovered appropriately. He did have some POUR after surgery due to his BPH. He was started on appropriate meds and Urology consulted for nair management and follow up. Before DC he was able to urinate on his own with low pvr. No other issues and post op course routine. He was dc home stable with home care.
[2021-01-12] MEDS ORDERED: WARFARIN 7.5 MG TAB PO ONE (18:00)
== END 2021-01-12 15:41 | disposition home health service (06) | DRG 982 ==
LOC: OR 05:37 → 5NMEDONC 12:35 → OR 01-08 13:04 → 5NMEDONC 01-08 15:47
PROVIDERS: ADMIT Orthopaedic Surgery; ATTEND Orthopaedic Surgery
PROC: 0QB10ZZ Excision of Sacrum, Open Approach (ICD-10-PCS; principal; 2021-01-06 07:30)
PROC: 0QB00ZZ Excision of Lumbar Vertebra, Open Approach (ICD-10-PCS; principal; 2021-01-06 07:30)
DX: N40.1 Benign prostatic hyperplasia with lower urinary tract symptoms (principal); I50.32 Chronic diastolic (congestive) heart failure; M48.062 Spinal stenosis, lumbar region with neurogenic claudication; G89.29 Other chronic pain; R20.0 Anesthesia of skin; R20.2 Paresthesia of skin; M47.816 Spondylosis without myelopathy or radiculopathy, lumbar region; E11.9 Type 2 diabetes mellitus without complications; H91.90 Unspecified hearing loss, unspecified ear; I48.0 Paroxysmal atrial fibrillation; I11.0 Hypertensive heart disease with heart failure; D64.9 Anemia, unspecified; E78.5 Hyperlipidemia, unspecified; R33.8 Other retention of urine; M19.90 Unspecified osteoarthritis, unspecified site; K59.00 Constipation, unspecified; J44.9 Chronic obstructive pulmonary disease, unspecified; M47.26 Other spondylosis with radiculopathy, lumbar region; Z20.822 Contact with and (suspected) exposure to COVID-19; Z96.653 Presence of artificial knee joint, bilateral; Z87.01 Personal history of pneumonia (recurrent); Z90.49 Acquired absence of other specified parts of digestive tract; Z98.890 Other specified postprocedural states; Z95.4 Presence of other heart-valve replacement; Z87.891 Personal history of nicotine dependence; Z82.49 Family history of ischemic heart disease and other diseases of the circulatory system; Z83.3 Family history of diabetes mellitus; Z80.0 Family history of malignant neoplasm of digestive organs; Z79.84 Long term (current) use of oral hypoglycemic drugs; Z79.02 Long term (current) use of antithrombotics/antiplatelets; Z79.4 Long term (current) use of insulin; Z79.899 Other long term (current) drug therapy; Z79.01 Long term (current) use of anticoagulants; Z88.0 Allergy status to penicillin; Z88.2 Allergy status to sulfonamides; Z95.2 Presence of prosthetic heart valve
CPT/HCPCS: 36415; 72100; 80048; 80053; 80202; 82565; 85025; 85610; 85730; 86850; 86900; 86901; 87635

== ENCOUNTER → 2021-12-10 | Outpatient (CLI) | payer MEDICARE ==
--- NOTE | 2021-12-10 12:02 | XR ---
EXAMINATION TYPE: XR wrist complete RT DATE OF EXAM: 12/10/2021 COMPARISON: NONE HISTORY: Pain TECHNIQUE: Four views submitted. FINDINGS: Vascular calcifications are seen and there is severe arthropathy of the first carpometacarpal joint. There is severe arthropathy of the radiocarpal joint with deformity and sclerosis of the scaphoid. Os teonecrosis in the differential diagnosis. Vascular calcifications and soft tissue ossifications are seen. No definite acute fracture or dislocation. Chondrocalcinosis noted. IMPRESSION: 1. No definite acute fracture or dislocation if symptoms persist, follow-up study in 7 to 10 days wo uld be suggested 2. Severe arthropathy particularly involving the first carpometacarpal joint and scaphoid radial join t. Deformity of the scaphoid likely is postarthritic. Osteonecrosis in the differential diagnosis rec ommend follow-up MRI.
== END | disposition home or self-care (01) ==
LOC: RADXRMAIN 11:05
PROVIDERS: ATTEND Family Medicine
DX: M87.037 Idiopathic aseptic necrosis of right carpus (principal)

== ENCOUNTER → 2022-01-25 | Outpatient (CLI) | payer MEDICARE ==
--- NOTE | 2022-01-25 15:40 | CT ---
EXAMINATION TYPE: CT lumbar spine wo con DATE OF EXAM: 01/25/2022 COMPARISON: 06/05/2020 HISTORY: 77-year-old male low back pain and bilateral lower extremity numbness TECHNIQUE: Contiguous axial scanning of the lumbar spine without IV contrast. Coronal and sagittal re constructions performed. CT DLP: 1460.80 mGycm Automated exposure control for dose reduction was used. FINDINGS: Interval wide laminectomy changes extending from L1 down through the L4-L5 level with a dorsal decomp ression of the spinal canals. Underlying moderate to severe degenerative disc disease with disc osteo phyte complexes are similar particularly at L2-L3, L3-L4, L4-L5. Multilevel hypertrophic facet arthropathy is redemonstrated. Degenerative grade 1 retrolisthesis L3-L 4 is similar. Vertebral body heights are preserved. On the right, moderate to severe neuroforaminal stenosis at L5-S1 and moderate at L2-L3 and L3-L4. Mi ld L1-L2. On the left, moderate to severe neuroforaminal stenosis at L5-S1 and moderate at L3-L4 and L4-L5. There is a fluid collection measuring up to 4.0 x 2.4 cm along the posterior midline subcutaneous steven pose layer and spanning 18.4 cm craniocaudal. Mild degenerative change of both hips. Cholecystectomy clips. Mild sigmoid diverticulosis. IMPRESSION: 1. MODERATE TO ADVANCED MULTILEVEL DEGENERATIVE DISC DISEASE WELL HYPERTROPHIC FACET ARTHROPATH Y. DEGENERATIVE GRADE 1 RETROLISTHESIS L3-L4. APPEARANCE SIMILAR TO PRIOR EXAM. 2. INTERVAL WIDE LAMINECTOMIES FROM L1 DOWN THROUGH THE L4-L5 LEVELS WITH DORSAL DECOMPRESSION OF THE SPINAL CANAL. THERE IS A POSTOPERATIVE FLUID COLLECTION SPANNING 18.4 CM CRANIOCAUDAL AND MEASURING 4.0 CM WIDE IN THE SUBCUTANEOUS ADIPOSE LAYER POSTERIOR MIDLINE. PROBABLY A LARGE POSTOPERATIVE SEROM A. CORRELATE CLINICALLY TO EXCLUDE INFECTIVE FLUID. 3. VARIABLE NEUROFORAMINAL STENOSES OUTLINED ABOVE, MODERATE TO SEVERE ON BOTH SIDES AT L5-S1.
== END | disposition home or self-care (01) ==
LOC: RADCTMAIN 11:39
PROVIDERS: ATTEND Orthopaedic Surgery
DX: M47.816 Spondylosis without myelopathy or radiculopathy, lumbar region (principal); M43.16 Spondylolisthesis, lumbar region; M99.74 Connective tissue and disc stenosis of intervertebral foramina of sacral region; M51.36 Other intervertebral disc degeneration, lumbar region; M43.8X6 Other specified deforming dorsopathies, lumbar region
CPT/HCPCS: 72131

== ENCOUNTER → 2022-11-25 | Outpatient (CLI) | payer MEDICARE ==
--- NOTE | 2022-11-25 11:53 | XR ---
EXAM TYPE: LUMBAR SPINE X RAY SERIES COMPARISON: 01/25/2022 HISTORY: Pain TECHNIQUE: 4 views are submitted. FINDINGS: Alignment is anatomic. The pedicles are intact. The transverse processes are intact. There is patricia re multilevel degenerative disc disease and facet arthropathy. Atherosclerotic change aorta. Surgical clips in the abdomen. Correlate for previous laminectomy. No spondylolisthesis. There is posterior s pondylosis at multiple levels with retrolisthesis of L3-4 and L4-5. IMPRESSION: 1. Extensive postsurgical change with severe multilevel degenerative disc disease and facet arthropat hy. Multilevel foraminal encroachment suspected.
--- NOTE | 2022-11-25 12:54 | MR ---
EXAMINATION TYPE: MR lumbar spine wo con DATE OF EXAM: 11/25/2022 COMPARISON: 05/14/2020 HISTORY: Lower back pain, BLE radiculopathy. TECHNIQUE: T1 and T2 axial and sagittal images of the lumbar spine are submitted. FINDINGS: There is no abnormal signal seen within the visualized spinal cord or paraspinal soft tissu es. There is severe degenerative disc disease at all levels with discogenic marrow changes. At L1-2 there is severe degenerative disc disease but no disc herniation or canal stenosis. Mild bila teral foraminal protrusion with mild hypertrophic changes of the facets. Mild bilateral foraminal enc roachment. At L2-3 there is broad-based disc bulging with bilateral effacement of thecal sac. Findings previous laminectomy. Mild bilateral foraminal encroachment. At L3-4 there is broad-based disc protrusion with hypertrophic changes in facets and findings suggest falguni of prior surgery. There is bilateral lateral recess stenosis and moderate bilateral foraminal enc roachment. Mild canal stenosis. Stable grade 1 retrolisthesis. At L4-5 there is postlaminectomy changes with abnormal tissue signal posteriorly suggesting scarring. There is moderate to severe degenerative disc disease. Broad-based disc bulging with mild bilateral foraminal encroachment and facet arthropathy. Borderline central stenosis. At L5-S1 there is ligamentum flavum hypertrophy and advanced facet arthropathy. Moderate to severe bi lateral foraminal enlargement. Moderate to severe degenerative disc disease and mild canal stenosis. Bilateral lateral recess stenosis. There is a fluid signal within the posterior soft tissues extending from the lower thoracic region to the L4-L5 level which could be related to a postoperative seroma. Clumping of the nerve roots within the distal thecal sac suggestive of arachnoiditis. IMPRESSION: 1. Extensive postsurgical change with suspected postoperative seroma extending from the lower thoraci c level L5 measuring in maximal and transverse diameter of 2 x 2.3 cm. 2. Severe degenerative disc disease at all levels. There is facet arthropathy and foraminal encroachm ent at all levels as discussed above. 3. Disc bulging or protrusion at multiple levels most pronounced at L3-4 resulting in canal stenosis. 4. Disc bulging or protrusion at L5-S1 with severe degenerative disc disease and hypertrophy of the f acets and ligamentum flavum results in mild canal stenosis and moderate to severe bilateral foraminal encroachment.
== END | disposition home or self-care (01) ==
LOC: RADMRIMAIN 09:15
PROVIDERS: ATTEND Neurological Surgery
DX: M51.17 Intervertebral disc disorders with radiculopathy, lumbosacral region (principal); M47.26 Other spondylosis with radiculopathy, lumbar region; M48.07 Spinal stenosis, lumbosacral region; M99.73 Connective tissue and disc stenosis of intervertebral foramina of lumbar region; M43.16 Spondylolisthesis, lumbar region
CPT/HCPCS: 72114; 72148

== ENCOUNTER → 2022-12-24 | Outpatient (CLI) | payer MEDICARE ==
--- NOTE | 2022-12-24 12:36 | XR ---
EXAMINATION TYPE: XR chest 2V DATE OF EXAM: 12/24/2022 COMPARISON: NONE TECHNIQUE: PA and lateral views submitted. HISTORY: Presurgical FINDINGS: The lungs are clear and there is no pneumothorax, pleural effusion, or focal pneumonia. Heart size normal and no overt failure. Osseous structures demonstrate hypertrophic and degenerative changes of the spine. Postoperative changes aortic valve replacement. Hyperinflation suggests COPD. Surgical cli ps in the abdomen. IMPRESSION: 1. No acute process.
[2022-12-25 05:21] LABS: Appearance,Urine Clear (Clear); Bilirubin,Urine Negative (Negative); Blood,Urine Negative (Negative); Color,Urine Yellow (Yellow); Ketones,Urine Negative (Negative); Nitrite,Urine Negative (Negative); Specific Gravity,Urine 1.016 (1.001-1.030); Urobilinogen,Urine 0.2 E.U./DL
[2022-12-25 05:28] LABS: Bacteria,Urine None Seen (None Seen)
== END | disposition home or self-care (01) ==
LOC: RADXRMAIN 12:11
PROVIDERS: ATTEND Neurological Surgery
DX: Z01.818 Encounter for other preprocedural examination (principal); M47.26 Other spondylosis with radiculopathy, lumbar region; M43.16 Spondylolisthesis, lumbar region
CPT/HCPCS: 71046; 81001; 87070

== ENCOUNTER → 2023-02-14 | Outpatient (CLI) | payer MEDICARE ==
--- NOTE | 2023-02-14 09:49 | XR ---
EXAM TYPE: LUMBAR SPINE X RAY SERIES COMPARISON: 11/25/2022 HISTORY: Pain TECHNIQUE: six views are submitted including flexion and extension lateral views. FINDINGS: Alignment is anatomic. The pedicles are intact. The transverse processes are intact. There is severe multilevel degenerative disc disease and facet arthropathy. Atherosclerotic change aorta. Surgical cl ips in the abdomen. Correlate for previous laminectomy. No spondylolisthesis. There is posterior spon dylosis at multiple levels with retrolisthesis of L3-4 and L4-5. IMPRESSION: 1. Extensive postsurgical change with severe multilevel degenerative disc disease and facet arthropat hy. Multilevel foraminal encroachment suspected.
== END | disposition home or self-care (01) ==
LOC: RADXRMAIN 08:33
PROVIDERS: ATTEND Neurological Surgery
DX: M47.26 Other spondylosis with radiculopathy, lumbar region (principal); M51.16 Intervertebral disc disorders with radiculopathy, lumbar region; Z98.890 Other specified postprocedural states
CPT/HCPCS: 72114

== ENCOUNTER → 2023-04-27 | Outpatient (CLI) | payer MEDICARE ==
--- NOTE | 2023-04-27 09:49 | XR ---
EXAMINATION TYPE: XR cervical spine w flex/ext DATE OF EXAM: 04/27/2023 9:36 AM CLINICAL INDICATION:Male, 78 years old with history of [id number], [id number]; COMPARISON: None TECHNIQUE: The cervical spine was imaged in frontal, lateral, odontoid and bilateral oblique. FINDINGS: Post surgical changes at C3-C4 disc space. The osseous structures show normal alignment wit hout evidence of an acute fracture. There are osteophytes noted throughout the cervical spine on the anterior and lateral aspects of the vertebral bodies. The intervertebral disk spaces are narrowed at multiple levels. Pedicles are intact. Soft tissues are within normal limits. The odontoid appears in tact. Sternotomy changes are present. There is atherosclerosis of the aortic arch. IMPRESSION: 1. No fracture or dislocation. 2. Postsurgical changes with mild degenerative disc disease changes of the cervical spine. Multilevel neural foraminal stenosis throughout the cervical spine.
--- NOTE | 2023-04-27 09:50 | XR ---
EXAMINATION TYPE: XR lumbar spine with bend/flex DATE OF EXAM: 04/27/2023 9:36 AM CLINICAL INDICATION:Male, 78 years old with history of [id number], [id number]. COMPARISON: 02/14/2023 TECHNIQUE: XR lumbar spine with bend/flex - Frontal, lateral and coned in L5-S1 lateral views of the spine. FINDINGS: No evidence of any acute osseous pathology. No evidence of loss of vertebral body height i s seen. There is normal alignment of the lumbar vertebral bodies. Post surgical at L5-S1 changes with scattered disc space narrowing. Hardware appears intact. Multilevel marginal osteophyte formation th roughout the visualized spine. There is facet joint arthropathy throughout the spine. Scattered at le ast mild neural foraminal stenosis. Atherosclerosis of the arterial vasculature. IMPRESSION: 1. No acute fracture. 2. Moderate to severe multilevel disc degeneration.
== END | disposition home or self-care (01) ==
LOC: RADXRMAIN 08:45
PROVIDERS: ATTEND Neurological Surgery
DX: M47.26 Other spondylosis with radiculopathy, lumbar region (principal); M43.16 Spondylolisthesis, lumbar region; M50.30 Other cervical disc degeneration, unspecified cervical region; M99.73 Connective tissue and disc stenosis of intervertebral foramina of lumbar region; M99.71 Connective tissue and disc stenosis of intervertebral foramina of cervical region; M43.22 Fusion of spine, cervical region
CPT/HCPCS: 72052; 72114

== ENCOUNTER → 2024-02-06 | Outpatient (CLI) | payer MEDICARE ==
[2024-02-06 10:07] VITALS: BP 127/70; PULSE 62; RESP 16
--- NOTE | 2024-02-06 16:47 | P.PAINPG ---
PQRS Measure Charge Sheet Comment: HISTORY OF PRESENT ILLNESS: A 79 yr old male as a referral from Dr Zavala presents today w severe and chronic LBP since 2019 secondary to L3-L5 post laminectomy syndrome for evaluation. Pt states pain level is provoked at 6 /10 in intensity, constant, localized in the lumbar spine, predominantly axial, dull in character w occasional shooting pain towards the BLEs. Pain is provoked by sitting for periods > 20 min. Pain is alleviated by physician guided home stretches daily since end Dec 2023, use of a cane for ambulatory assistance, medications (Zanaflex, Tyl), repositioning and rest . Oswestry axial pain score at 32. PMH: OA, aFib, Angina, NIDDM II, [place], HTN, Hyperlipidemia, PAD, BPH, CKD II PSH: L3-L5 laminectomy (2020), L5-S1 Fusion (2021), Aortic Valve Replacement (2012), Adenoidectomy, Cholecystectomy, Cardiac Catheterization, R Total Knee (2002), L Knee Surgery (2019), R Wrist Surgery, Tonsillectomy, Pyloric Valve Surgery () SH: Former tobacco user, No ETOH abuse, No illicit drug use FH: Fa- DM. Mo- Pancreatic CA All: See list Meds: See list REVIEW OF ORGAN SYSTEMS: CONSTITUTIONAL: No fevers or chills. No recent weight loss. NEUROLOGICAL: + numbness and tingling along the distal extremities. No seizure disorders or headaches. MUSCULOSKELETAL: + pain PSYCHIATRIC: Denies current depression or suicidal thoughts. Physical Examinations : Constitutional : Cooperative , not in acute distress . Neurologic : Cranial nerve II to XII intact. No focal neurological deficits. Psychiatric : alert & oriented x 3. Matching mood & appropriate affect. Judgment & insight intact. Musculoskeletal : Cervical Spine Motor strength in the deltoid and biceps: Normal right side. Normal Left side Motor strength biceps and the wrist extensors: Normal right side . Normal left side Motor strength in the triceps muscle: N ormal right side. Normal left side Deep tendon reflexes: Normal at the biceps. Normal at Brachioradialis. Normal at triceps Vertebral body tenderness to deep palpation over Cervical facet loading test: positive bilaterally Spurling test: positive bilaterally Neck distraction test: positive bilaterally Marylu sign: positive bilaterally Lumbar spine +Incisional scar intact Motor strength lower extremities ,thigh and legs 5/5 Right side , 5/5 Left side Deep tendon reflexes : Normal Knee Jerk. Normal Ankle Jerk Vertebral body tenderness over L5 Rodriguez Test positive BL L5-S1 Lumbar facet Loading Test: positive Right / positive Left Range of motion of the lumbar spine Flexion 30 degrees, extension 10 degrees Straight Leg Raise test: Left/ Right positive at degrees Aaron test: positive right / positive left. Severe tenderness over the Sacroiliac joint on the Right / Left sides Gaenslen test: positive bilaterally Seated flexion test: positive bilat erally. Sacral spine : Severe tenderness over the Sacroiliac joint: right side / left side Range of motion: Flexion of the lumbar spine <60 degrees Range of motion: Extension of the lumbar spine <20 degrees Gaenslen's Test positive Aaron test: positive right side / left side Thigh Thrust Test Sacral Thrust Test Imaging: MRI no contrast lumbar spine from 11/25/22 reviewed Assessment/ Plan : L3-L5 post laminectomy syndrome Recommendation of Caudal NEO w Lysis. Risks, benefits of procedure discussed and patient verbalized understanding. Admits to anti- coagulant use or medical history of diabetes. Protocol for discontinuation/ continuation of medications abdoul procedure discussed. Need medical clearance of Coumadin. All questions answered. I have spent greater than 30 minutes on patient care today. Dr Carr was available by phone for the evaluation of this patient. The time was used to review the medical records including relevant urine studies and Prescription history (MAPs), review of the available imaging, evaluation and examination of the patient, coordination of care with the medical staff and if applicable referring physicians, as well as creation of the medical record - Pain Location Lower Back Non-Pharmacological Interventions: Physical Therapy Pharmacological Interventions: PRN Medication PQRS Narrative: Smoking Status Former smoker Hx Alcohol Use (MH) Yes Home Medications: Ambulatory Orders Atorvastatin [Lipitor] 40 mg PO DAILY 03/26/16 Ferrous Sulfate [Feosol] 325 mg PO DAILY 03/26/16 Furosemide [Lasix] 40 mg PO DAILY 03/26/16 Niacin 500 mg PO DAILY 03/26/16 Warfarin [Coumadin] 7.5 mg PO DAILY 03/26/16 atenoloL [Atenolol] 50 mg PO BID 03/26/16 glipiZIDE [Glucotrol] 5 mg PO BID 03/26/16 lisinopriL [Lisinopril] 2.5 mg PO DAILY 03/26/16 metFORMIN HCL 1,000 mg PO BID 03/26/16 Tamsulosin [Flomax] 0.4 mg PO DAILY 12/06/19 Magnesium 400 mg PO DAILY 06/25/20 Docusate Sodium [Dok] 100 mg PO HS 01/01/21 Enoxaparin [Lovenox] 40 mg SQ DAILY 01/01/21 Finasteride [Proscar] 5 mg PO DAILY 90 Days #90 tablet 01/11/21 Cyclobenzaprine [Flexeril] 10 mg PO BID PRN #30 tab 01/12/21 Gabapentin 300 mg PO TID 3 Days #90 cap 01/12/21 HYDROcodone/APAP 10-325MG [[place] 10-325] 1 tab PO Q4HR PRN #56 tab 01/12/21 Sennosides/Docusate Sodium [Senna Plus 8.6-50 mg Softgel] 1 each PO BID #20 capsule 01/12/21 cefaDROXiL [Duricef] 500 mg PO Q12HR 5 Days #10 cap 01/12/21 diazePAM [Valium] 5 mg PO DAILY PRN 1 Days #2 tab 02/06/24 Controlled Substance Measures - Controlled Substance Measures Is patient prescribed a controlled substance at discharge?: No
== END ==
LOC: PNWHC3 09:29
PROVIDERS: ATTEND Specialist
DX: M54.16 Radiculopathy, lumbar region (principal); M96.1 Postlaminectomy syndrome, not elsewhere classified; Z87.891 Personal history of nicotine dependence; Z88.0 Allergy status to penicillin; Z88.2 Allergy status to sulfonamides
CPT/HCPCS: 99211